=== PATIENT | male | born 1965 | race Caucasian/White ===

== ENCOUNTER 2016-05-17 05:29 | Emergency (ER) | payer BC ==
--- NOTE | 2016-05-17 05:44 | ED ---
Chest Pain HPI - General Stated Complaint: Chest Pain Time Seen by Provider: 05/17/16 05:41 Source: patient, family (Mckenzie) Limitations: no limitations - History of Present Illness Initial Comments: This patient is 51-year-old man who presents with complaint that he woke up feeling like he could not breathe this morning. Patient states she had gone to bed feeling like his usual self and then he awoke abruptly this morning feeling like he could not breathe and he was gasping to catch his breath. Patient states that it felt like his heart was racing. He had some chest tightness. Patient states that the symptoms did rapidly resolve as he was coming here to be evaluated. Patient denies chest pain or dyspnea currently. He did have a similar episode to this between 1-2 years ago and was told that he had probable episode of sleep apnea. He has not had a sleep study or recent stress test. Patient denies smoking history or significant family history. -: hour(s) Onset: awoke with symptoms Pain Location: substernal Pain Radiation: none Consistency: now resolved Improves With: nothing Worsens With: nothing - Related Data Home Medications Medication Instructions Recorded Confirmed Aspirin 81 mg PO DAILY 11/17/13 12/10/13 Cholecalciferol (Vitamin D3) 10,000 unit PO DAILY 11/17/13 12/10/13 [Vitamin D3] Lisinopril 10 mg PO DAILY 11/17/13 12/10/13 Multivitamin [Men's Multi-Vitamin] 1 each PO DAILY 11/17/13 12/10/13 [place]-3 Fatty Acids/Fish Oil [Fish 2 each PO DAILY 11/17/13 12/10/13 Oil 1,000 mg Softgel] Previous Rx's Medication Instructions Recorded Albuterol Inhaler [Ventolin Hfa 2 puff INHALATION Q6HR PRN #1 12/10/13 Inhaler] inhaler predniSONE 20 mg PO TID #15 tab 12/10/13 Allergies Allergy/AdvReac Type Severity Reaction Status Date / Time No Known Allergies Allergy Verified 05/17/16 05:44 Review of Systems ROS Statement: Those systems with pertinent positive or pertinent negative responses have been documented in the HPI. ROS Other: All systems not noted in ROS Statement are negative. Constitutional: Denies: fever, chills Respiratory: Reports: as per HPI, dyspnea. Denies: cough, wheezes Cardiovascular: Reports: as per HPI, chest pain. Denies: palpitations, dyspnea on exertion, orthopnea, edema, syncope Gastrointestinal: Denies: abdominal pain, nausea, vomiting Genitourinary: Denies: dysuria Musculoskeletal: Denies: back pain Skin: Denies: rash Neurological: Denies: headache, weakness, numbness EKG Findings - EKG Results: EKG: interpreted by ELIZA MILLER, sinus rhythm, normal axis, normal QRS, normal ST/ T, no acute changes Past Medical History Past Medical History: Hypertension History of Any Multi-Drug Resistant Organisms: None Reported Past Surgical History: No Surgical Hx Reported Additional Past Surgical History / Comment(s): pt stated had surgery on thumb for tendons. Past Anesthesia/Blood Transfusion Reactions: No Reported Reaction Past Psychological History: No Psychological Hx Reported Smoking Status: Current every day smoker Past Alcohol Use History: None Reported Past Drug Use History: None Reported - Past Family History Mother Family Medical History: Hypertension Additional Family Medical History / Comment(s): pts mom's dad of heart attack at 75. Father Family Medical History: Cancer, Hypertension Additional Family Medical History / Comment(s): Prostate Cancer General Exam General appearance: alert, in no apparent distress Head exam: Present: atraumatic, normocephalic Eye exam: Present: normal appearance. Absent: scleral icterus, conjunctival injection ENT exam: Present: normal oropharynx Neck exam: Present: normal inspection, full ROM Respiratory exam: Present: normal lung sounds bilaterally. Absent: respiratory distress, wheezes, rales, rhonchi, stridor, chest wall tenderness Cardiovascular Exam: Present: regular rate, normal rhythm, normal heart sounds. Absent: systolic murmur, diastolic murmur, rubs, gallop GI/Abdominal exam: Present: soft. Absent: distended, tenderness, guarding, rebound, mass Extremities exam: Present: normal inspection, normal capillary refill. Absent: pedal edema, calf tenderness Neurological exam: Present: alert Skin exam: Present: warm, dry, intact, normal color. Absent: rash Course Vital Signs 05/17/16 05:30 Temperature 97.6 F Pulse Rate 74 Respiratory 22 Rate Blood Pressure 151/82 O2 Sat by Pulse 96 Oximetry Disposition Clinical Impression: Sleep apnea Disposition: HOME SELF-CARE Condition: Good Instructions: Chest Pain (ED) Additional Instructions: As we discussed, follow-up with the production specialist to arrange stress test. If there is any difficulty in setting this up within the next week return to the emergency department and ischemia arranged as an inpatient. Also as we discussed, speak with your physician about arranging a sleep study to confirm the suspected sleep apnea. Referrals: Ariadne Nunn III, MD [Primary Care Provider] - 1-2 days Theo White MD [STAFF PHYSICIAN] - 1-2 days
--- NOTE | 2016-05-17 06:27 | XR ---
EXAM: XR Chest, 1 View. CLINICAL HISTORY: Reason: dyspnea TECHNIQUE: Frontal view of the chest. COMPARISON: 12/10/13 portable chest FINDINGS: Lungs: No focal infiltrate has developed. Pleural space: Unremarkable. No pneumothorax. Heart: The heart size is stable with borderline to mild cardiomegaly again present. Mediastinum: The mediastinal contours are within normal limits for portable AP technique and somewhat apical lordotic projection. Also, the patient is slightly rotated towards the right. Bones/joints: Stable. Upper abdomen: Mild elevation or eventration of the right diaphragm is now better seen although unchanged allowing for differences in positioning. IMPRESSION: No acute process seen within the chest.
[2016-05-17 06:34] LABS: Basophils # (A) 0.1 k/uL (0-0.2); Basophils % (A) 1 %; CH 32.2; CHCM 34.4; Eosinophils # (A) 0.1 k/uL (0-0.7); Eosinophils % (A) 2 %; HCT 40.2 % (39.0-53.0); HDW 2.74; HGB 14.4 gm/dL (13.0-17.5); Luc # (Auto) 0.18; Luc % (Auto) 3; Lymphocytes # (A) 2.2 k/uL (1.0-4.8); Lymphocytes % (A) 30 %; MCH 33.6 pg (25.0-35.0); MCHC 35.8 g/dL (31.0-37.0); Mean Platelet Volume 7.9; Monocytes # (A) 0.5 k/uL (0-1.0); Monocytes % (A) 7 %; Neutrophils # (A) 4.1 k/uL (1.3-7.7); Neutrophils % (A) 57 %; RBC 4.28 m/uL (4.30-5.90); RDW 13.1 % (11.5-15.5); WBC 7.2 k/uL (3.8-10.6); WBC (Perox) 7.41
[2016-05-17 07:01] LABS: ALT 55 U/L (21-72); AST 32 U/L (17-59); Alkaline Phosphatase 70 U/L (38-126); Anion Gap 11 mmol/L; Blood Urea Nitrogen 17 mg/dL (9-20); Calcium 9.1 mg/dL (8.4-10.2); Carbon Dioxide 20 mmol/L (22-30); Chloride 110 mmol/L (98-107); Glucose 158 mg/dL (74-99); Non-African American GFR(MDRD) >60 (>60 ml/min/1.73 sqM); Potassium 4.2 mmol/L (3.5-5.1); Sodium 141 mmol/L (137-145); Total Bilirubin 0.6 mg/dL (0.2-1.3); Total Protein 6.7 g/dL (6.3-8.2)
[2016-05-17 07:19] LABS: Partial Thromboplastin Time 26.7 sec (22.0-30.0); Prothrombin Time 9.9 sec (9.0-12.0)
[2016-05-17 08:46] VITALS: BP 136/63; PULSE 62; RESP 18; TEMP 97.5
== END 2016-05-17 08:46 | disposition home or self-care (01) ==
LOC: EC 05:29 → SUPCPDRO 05:29 → EC 08:46
DX: G47.30 Sleep apnea, unspecified (principal); Z79.82 Long term (current) use of aspirin; F17.200 Nicotine dependence, unspecified, uncomplicated
CPT/HCPCS: 36415; 71010; 80053; 83880; 84484; 85025; 85379; 85610; 85730; 93005; 99285

== ENCOUNTER 2016-05-24 22:27 | Observation (INO) | payer BC ==
[2016-05-24] MEDS ORDERED: NITROGLYCERIN OINT 1 INCH/GM PACKET TOPICAL STA (22:54)
--- NOTE | 2016-05-24 22:58 | ED ---
Chest Pain HPI - General Chief Complaint: Chest Pain Stated Complaint: chest pain; sob Time Seen by Provider: 05/24/16 22:36 Source: patient, RN notes reviewed, old records reviewed Mode of arrival: wheelchair Limitations: no limitations - History of Present Illness Initial Comments: This is a 51-year-old male with a history of hypertension and high cholesterol who states he laid down before going to work tonight and felt very short of breath he had nausea sweats no overt chest pain. He still feeling his symptoms he has worked up for the past with stress test and other testing but not a cardiac cath at. He is a smoker we occasion drinks alcohol does not do street drugs. He denies any family history of heart disease. Patient states he is convinced that he has a blockage in his heart. MD Complaint: other - Related Data Home Medications Medication Instructions Recorded Confirmed Aspirin 81 mg PO DAILY 11/17/13 12/10/13 Cholecalciferol (Vitamin D3) 10,000 unit PO DAILY 11/17/13 12/10/13 [Vitamin D3] Lisinopril 10 mg PO DAILY 11/17/13 12/10/13 Multivitamin [Men's Multi-Vitamin] 1 each PO DAILY 11/17/13 12/10/13 [place]-3 Fatty Acids/Fish Oil [Fish 2 each PO DAILY 11/17/13 12/10/13 Oil 1,000 mg Softgel] Previous Rx's Medication Instructions Recorded Albuterol Inhaler [Ventolin Hfa 2 puff INHALATION Q6HR PRN #1 12/10/13 Inhaler] inhaler predniSONE 20 mg PO TID #15 tab 12/10/13 Allergies Allergy/AdvReac Type Severity Reaction Status Date / Time No Known Allergies Allergy Verified 05/17/16 05:44 Review of Systems ROS Statement: Those systems with pertinent positive or pertinent negative responses have been documented in the HPI. ROS Other: All systems not noted in ROS Statement are negative. EKG Findings - EKG Results: EKG: interpreted by ANGELA, sinus rhythm (Sinus rhythm with a rate of 66. Interval 188 QRS duration 92 daily since QTC of 396/450 nonspecific T-wave configuration this is compared with an EKG dated 05/17/16) Past Medical History Past Medical History: Hypertension History of Any Multi-Drug Resistant Organisms: None Reported Past Surgical History: No Surgical Hx Reported Additional Past Surgical History / Comment(s): pt stated had surgery on thumb for tendons. Past Anesthesia/Blood Transfusion Reactions: No Reported Reaction Past Psychological History: No Psychological Hx Reported Smoking Status: Current every day smoker Past Alcohol Use History: None Reported Past Drug Use History: None Reported - Past Family History Mother Family Medical History: Hypertension Additional Family Medical History / Comment(s): pts mom's dad of heart attack at 75. Father Family Medical History: Cancer, Hypertension Additional Family Medical History / Comment(s): Prostate Cancer General Exam - General Exam Comments Initial Comments: This is a well-developed well-nourished awake alert oriented times 3 male Limitations: no limitations General appearance: alert, in no apparent distress Head exam: Present: atraumatic, normocephalic, normal inspection Eye exam: Present: normal appearance, PERRL, EOMI. Absent: scleral icterus, conjunctival injection, periorbital swelling ENT exam: Present: normal exam, mucous membranes moist Neck exam: Present: normal inspection. Absent: tenderness, meningismus, lymphadenopathy Respiratory exam: Present: normal lung sounds bilaterally. Absent: respiratory distress, wheezes, rales, rhonchi, stridor Cardiovascular Exam: Present: regular rate, normal rhythm, normal heart sounds. Absent: systolic murmur, diastolic murmur, rubs, gallop, clicks GI/Abdominal exam: Present: soft, normal bowel sounds. Absent: distended, tenderness, guarding, rebound, rigid Extremities exam: Present: normal inspection, full ROM, normal capillary refill. Absent: tenderness, pedal edema, joint swelling, calf tenderness Back exam: Present: normal inspection Neurological exam: Present: alert, oriented X3, CN II-XII intact Psychiatric exam: Present: normal affect, normal mood Skin exam: Present: warm, dry, intact, normal color. Absent: rash Course Vital Signs 05/24/16 05/24/16 05/25/16 22:28 22:50 00:13 Temperature 97.1 F L 97.2 F L Pulse Rate 69 61 56 L Pulse Rate [ 61 Booky ] Respiratory 17 18 18 Rate Blood Pressure 148/83 164/96 120/56 O2 Sat by Pulse 97 98 97 Oximetry Chest Pain MDM - MDM I did review the x-ray and report no acute findings. I did discuss findings with the patient is asymptomatic this time the presentation is consistent with atypical presentation of coronary artery disease. Patient be admitted with cardiology consultation. Disposition Clinical Impression: Unstable angina pectoris Disposition: ADMITTED IP TO THIS HOSP Condition: Stable
[2016-05-24 23:07] LABS: Basophils % (A) 1 %; CH 32.2; CHCM 34.7; Eosinophils # (A) 0.1 k/uL (0-0.7); Eosinophils % (A) 1 %; HCT 42.5 % (39.0-53.0); HDW 2.73; HGB 14.6 gm/dL (13.0-17.5); Luc # (Auto) 0.21; Luc % (Auto) 2; Lymphocytes # (A) 2.5 k/uL (1.0-4.8); Lymphocytes % (A) 28 %; MCH 31.9 pg (25.0-35.0); MCHC 34.2 g/dL (31.0-37.0); MCV 93.3 fL (80.0-100.0); Mean Platelet Volume 7.6; Monocytes # (A) 0.6 k/uL (0-1.0); Monocytes % (A) 7 %; Neutrophils # (A) 5.3 k/uL (1.3-7.7); Neutrophils % (A) 60 %; RBC 4.56 m/uL (4.30-5.90); RDW 13.4 % (11.5-15.5); WBC 8.8 k/uL (3.8-10.6); WBC (Perox) 8.98
[2016-05-24 23:18] LABS: ALT 53 U/L (21-72); AST 39 U/L (17-59); Alkaline Phosphatase 75 U/L (38-126); Anion Gap 10 mmol/L; Blood Urea Nitrogen 20 mg/dL (9-20); Calcium 9.6 mg/dL (8.4-10.2); Carbon Dioxide 23 mmol/L (22-30); Chloride 108 mmol/L (98-107); Glucose 116 mg/dL (74-99); Non-African American GFR(MDRD) 53 (>60 ml/min/1.73 sqM); Sodium 141 mmol/L (137-145); Total Bilirubin 0.6 mg/dL (0.2-1.3)
[2016-05-24 23:22] LABS: Partial Thromboplastin Time 27.3 sec (22.0-30.0); Prothrombin Time 9.9 sec (9.0-12.0)
[2016-05-24 23:29] LABS: Creatine Kinase 347 U/L (55-170)
[2016-05-24 23:42] LABS: Creatine Kinase MB 1.3 ng/mL (0.0-2.4); Troponin I <0.012 ng/mL (0.000-0.034)
--- NOTE | 2016-05-25 00:27 | XR ---
EXAM: XR Chest, 2 Views. CLINICAL HISTORY: Reason: Chest Pain TECHNIQUE: Frontal and lateral views of the chest. COMPARISON: Chest radiograph 05/17/2016 FINDINGS: Lungs: Lungs are clear. Pleural space: Unremarkable. No pneumothorax. Heart: Heart size and mediastinal structures are within normal limits. Mediastinum: Unremarkable. Bones/joints: Unremarkable. IMPRESSION: No evidence of active chest disease.
[2016-05-25] MEDS ORDERED: NITROGLYCERIN SL TABS 0.4 MG TAB SUBLINGUAL PRN (00:45)
[2016-05-25] MEDS ORDERED: HEPARIN SODIUM,PORCINE 5,000 UNIT/ML 1 ML VIAL IV ONE (00:45)
[2016-05-25] MEDS ORDERED: HEPARIN SODIUM,PORCINE/D5W PMX 25,000 UNIT in DEXTROSE/WATER 1 500ML.BAG IV SCH (00:45)
[2016-05-25] MEDS ORDERED: SODIUM CHLORIDE 0.9% 1,000 ML IV SCH (00:45)
[2016-05-25] MEDS ORDERED: ALBUTEROL NEBULIZED 2.5 MG/3 ML INHALATION PRN (00:47)
[2016-05-25 01:31] VITALS: BMI 30.9
[2016-05-25] MEDS ORDERED: NITROGLYCERIN OINT 1 INCH/GM PACKET TOPICAL SCH (06:00)
[2016-05-25 06:04] LABS: Creatine Kinase 266 U/L (55-170)
[2016-05-25 06:16] LABS: Creatine Kinase MB 1.1 ng/mL (0.0-2.4); Troponin I <0.012 ng/mL (0.000-0.034)
[2016-05-25 07:57] VITALS: TEMP 97.7
[2016-05-25] MEDS ORDERED: LISINOPRIL 10 MG TAB PO SCH (09:00)
[2016-05-25 11:57] LABS: Creatine Kinase 242 U/L (55-170)
[2016-05-25 12:10] LABS: Creatine Kinase MB 1.1 ng/mL (0.0-2.4); Troponin I <0.012 ng/mL (0.000-0.034)
--- NOTE | 2016-05-25 13:13 | ECHOF ---
Referral Reason: MEASUREMENTS -------- HEIGHT: 180.3 cm WEIGHT: 106.1 kg BP: IVSd: 1.0 cm (0.6 - 1.1) LVIDd: 5.4 cm (3.9 - 5.3) LVPWd: 1.1 cm (0.6 - 1.1) IVSs: 1.6 cm LVIDs: 3.2 cm LVPWs: 2.1 cm Ao Diam: 2.8 cm (2.0 - 3.7) AV Cusp: 2.1 cm (1.5 - 2.6) LA Diam: 3.3 cm (2.7 - 3.8) MV EXCURSION: 15.618 mm (> 18.000) MV EF SLOPE: 96 mm/s (70 - 150) EPSS: 0.7 cm MV E Jean-Claude: 0.99 m/s MV DecT: 223 ms MV A Jean-Claude: 0.93 m/s MV E/A Ratio: 1.07 AV maxP.55 mmHg AV meanP.16 mmHg RAP: 5.00 mmHg RVSP: 21.66 mmHg FINDINGS -------- Sinus rhythm. This was a technically good study. Left ventricular wall thickness is normal. Overall left ventricular systolic function is normal with, an EF between 55 - 60 %. The right ventricle is normal in size and function. The left atrium is normal in size. The right atrium is normal in size. Aortic valve is trileaflet and is mildly thickened. Peak/mean gradient across the Aortic Valve is 17.55mmHg / 7.16mmHg. Can't exclude possible Bicuspid Aov. The mitral valve leaflets are mildly thickened. Mild mitral regurgitation is present. Mild tricuspid regurgitation present. The right ventricular systolic pressure, as measured by Doppler, is 21.66mmHg. Pulmonic valve appears structurally normal. The aortic root size is normal. The pericardium is normal. CONCLUSIONS -------- 1. Sinus rhythm. 2. Can't exclude possible Bicuspid Aov. 3. The mitral valve leaflets are mildly thickened. 4. Mild mitral regurgitation is present. 5. Mild tricuspid regurgitation present. 6. The right ventricular systolic pressure, as measured by Doppler, is 21.66mmHg. 7. Pulmonic valve appears structurally normal. 8. The aortic root size is normal. 9. The pericardium is normal. 10. This was a technically good study. 11. Left ventricular wall thickness is normal. 12. Overall left ventricular systolic function is normal with, an EF between 55 - 60 %. 13. The right ventricle is normal in size and function. 14. The left atrium is normal in size. 15. The right atrium is normal in size. 16. Aortic valve is trileaflet and is mildly thickened. 17. Peak/mean gradient across the Aortic Valve is 17.55mmHg / 7.16mmHg. CLOSING MANAGER: Arianna Hernandez RDCS
--- NOTE | 2016-05-25 14:18 | ECHOS ---
DATE OF SERVICE: 05/25/2016 AGE: 51Y SEX: M HT: 71" WT: 235 lbs. Protocol Kunal: X Others: Stress Echo Stage: 3 Dur. of Exercise: 11:43 *Heart Rate Blood Pressure *Rest: 71 Rest: * *Max. Achieved: 142 Maximum BP: 190/76 85% PMHR: 142 100% PMHR: 167 *METS: 11.7 INDICATIONS: Chest pain. MEDICATIONS: Lisinopril, Norvasc. Patient was exercised for a total period of 12 minutes. A peak heart rate of 142 was achieved. Maximum blood pressure of 190/76 mmHg was noted. Resting EKG shows normal sinus rhythm with normal OR interval and QRS duration and normal ST-T waves. No ST segment depression suggestive of ischemia is noted. Occasional PVCs were noted. The baseline echocardiographic images reveal normal left ventricular chamber size with normal left ventricular systolic function. In the immediate postexercise period, normal increase in the wall thickness and contractility is noted. FINAL IMPRESSION: 1. This stress echocardiographic study is negative for stress-induced ischemia. 2. Patient's exercise tolerance is normal. 3. Occasional Premature ventricular contractions are noted.
--- NOTE | 2016-05-25 14:50 | CONS ---
DATE OF CONSULTATION: Mr. Hahn is 51-year-old male history of hypertension, history of chronic tobacco use, who smokes a pack and a half a day who presented with acute dyspnea that occurred at night. He had mild chest discomfort, but not as severe. He came into the emergency room and subsequently admitted. The patient, according to him, is reasonably active physically, has no exertional chest pain. He denies any peripheral edema. No palpitation. He felt dizzy yesterday, but not regularly. No palpitation. 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 He has a history of snoring and possible apnea. He has not been evaluated for obstructive sleep apnea in the past. He was in the hospital in October 2013. At that time, his stress test revealed no evidence of inducible ischemia and subsequently because of persistent symptoms, he was evaluated by Dr. Marion for possible cardiac catheterization but the patient declined to have it done, subsequently. His coronary risk factors are positive for hypertension, and chronic tobacco use. He is a nondiabetic. His lipid profile is not available to me. His medications at home include: 1. Amlodipine 5 mg daily. 2. Aspirin. 3. Lisinopril 10 mg daily. 4. Coenzyme Q10. 5. [place]-3 fish oil. REVIEW OF SYSTEMS: RESPIRATORY SYSTEM: He has no recent wheezing. No cough, although he has chronic tobacco use, and dyspnea. GI: No recent GI bleeding. No peptic ulcer disease. system: No dysuria or hematuria. Nervous system: No stroke or seizure. 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 PHYSICAL EXAMINATION: A 51-year-old male, alert, oriented, in no apparent distress. Blood pressure 117/60 with a heart in the 60s. HEAD: Normocephalic. EYES: Sclerae anicteric. NECK: Good upstroke. No bruit. No jugular venous distention. LUNGS: Clear to auscultation. HEART: Regular rate and rhythm. S1, S2, no S3, no S4, no rub. ABDOMEN: Soft, nontender, positive bowel sounds. No organomegaly. EXTREMITIES: No edema. Intact distal pulses. Lab data revealed BUN and creatinine of 20 and 1.4, troponin less than 0.012. Hemoglobin of 14.6. EKG reveals sinus mechanism, normal axis and intervals with minor nonspecific ST-T wave changes. IMPRESSION: 1. Chest discomfort and dyspnea at rest of unclear etiology, has atypical feature for ischemic heart disease in a patient with history of hypertension and chronic tobacco use. 2. Hypertension. 3. Chronic tobacco use. RECOMMENDATIONS: I will recommend to stop the heparin, proceed with a stress echocardiogram and transthoracic echo. If there is evidence of inducible ischemia then I would recommend to proceed with coronary angiography to assess his status and guide his treatment. The rationale behind the procedure the plan as well as the importance of smoking cessation was discussed with the patient, who was in full understanding and agreement. Thank you for this consult. We will follow with you.
[2016-05-25 16:11] VITALS: BP 112/69; PULSE 56; RESP 16
--- NOTE | 2016-05-26 06:44 | HP ---
DATE OF ADMISSION: HISTORY PHYSICAL AND DISCHARGE SUMMARY Reason for admission is difficulty in breathing and chest pressure. HISTORY OF PRESENT ILLNESS: This is a 51-year-old gentleman with no past medical history of cardiac disease, comes into the hospital with an episode of difficulty in breathing while the patient was asleep and associated with chest pressure. The episode was self-limiting, was associated with diuresis, diaphoresis. No alleviating or exacerbating factors are reported. Pressure was midsternal, nonradiating in nature. Patient apparently has had similar episode in 2013. At that time, the stress test was negative, however, due to persistent symptoms a cardiac catheterization was offered, patient refused it at that time. According to the patient, patient's apparently tells him he snores quite a bit at night. 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 At that time my evaluation, patient denies having chest pain, difficulty in breathing, nausea, vomiting, diarrhea, urinary urgency or frequency. The 14-point review of systems was done not pertinent other than what was described as well. Past medical history includes history of hypertension, ongoing tobacco use. SOCIAL HISTORY: Currently smokes a pack of cigarettes daily, drinks alcohol on the weekend. Denies any illicit drug use. Home medications include: 1. Lisinopril. 2. Co- Q10. 3. Fish oil. 4. Multivitamin. 5. Vitamin D3. 6. Aspirin. 7. Lisinopril. Appropriate doses were reviewed and medications were reconciled on admission and discharge. SURGICAL HISTORY: None reported. Physical exam includes temperature 97.7, heart rate is 56, blood pressure 112/69, saturating 93% on room air. GENERALLY: Patient appears to be alert, oriented x3. HEENT: The pupils are equal and reactive to light and accommodation. HEART: S1, S2 present. No murmur appreciated. LUNGS: Good air entry. No wheezing or rhonchi noted. ABDOMINAL EXAM: Soft, nontender, no organomegaly appreciated. GENITOURINARY: No Vidal in place. EXTREMITIES: Pulses can be palpated distally. Denies any tenderness on gross palpation. SKIN: On a gross skin exam does not appear to have any purpura or any skin rashes that were noted. NEUROLOGICALLY: Grossly cranial nerves 2-12 intact. No motor or sensory deficits noted. LABS: Hemoglobin is 14.6, hematocrit 42.5, white count 8.8, platelets of 260. Sodium 141, potassium 4, chloride 108, bicarb 23, BUN 20 and creatinine of 1.4. ASSESSMENT AND PLAN: 1. Atypical chest pain. ACS was ruled out. 2. Acute kidney injury. 3. Ongoing tobacco use. 4. Clinical obstructive sleep apnea. PLAN: Patient appears to have an atypical episode, however, this has happened in the past. The patient denies having any symptoms of being ill in the recent times. The patient was given IV fluids. Patient is recommended to have a repeat renal function evaluation in about one week. The patient's baseline creatinine about 0.9, currently at 1.4. Lisinopril will be continued at this time. Patient's episode has occurred in the past and appears to only occur during sleep. Patient does state to have some anxiety when he wakes up with gasping for air and thereafter this episode happens. All the above recommendations were discussed. Patient underwent a stress test, which only revealed trace PVCs, otherwise a normal stress echocardiogram. Echocardiogram was also done EF of 55% to 60%. Right ventricular systolic pressure was within normal limits. No other abnormalities were noted. Patient is discharged home in a stable condition.
[2016-05-26] MEDS ORDERED: ASPIRIN 325 MG TAB PO SCH (09:00)
== END 2016-05-25 18:00 | disposition home or self-care (01) ==
LOC: EC 22:27 → 3OBS 05-25 00:47
PROVIDERS: ADMIT Internal Medicine; ATTEND Internal Medicine
DX: R07.89 Other chest pain (principal); R61 Generalized hyperhidrosis; R11.0 Nausea; R06.02 Shortness of breath; R06.00 Dyspnea, unspecified; I10 Essential (primary) hypertension; N17.9 Acute kidney failure, unspecified; G47.33 Obstructive sleep apnea (adult) (pediatric); F17.210 Nicotine dependence, cigarettes, uncomplicated; E78.00 Pure hypercholesterolemia, unspecified; Z79.82 Long term (current) use of aspirin; Z79.899 Other long term (current) drug therapy; Z82.49 Family history of ischemic heart disease and other diseases of the circulatory system; Z80.42 Family history of malignant neoplasm of prostate
CPT/HCPCS: 96374; 99285; 36415; 93005; 93017; 93306; 93350; 85379; 83880; 80053; 82550 ×2; 82553 ×2; 83735; 84484 ×2; 85025; 85610; 85730; 71020; G0378; J1644 ×2

== ENCOUNTER → 2016-10-09 | Outpatient (CLI) | payer BC ==
--- NOTE | 2016-10-09 09:15 | MR ---
EXAMINATION TYPE: MR cervical spine wo con DATE OF EXAM: 10/09/2016 7:38 AM COMPARISON: NONE HISTORY: RADICULOPATHY Multiplanar MultiSpin echo imaging of the cervical spine was performed. Comparison: none C2-C3: No evidence for degenerative disc disease. No disc bulge/herniation or protrusion. No Canal stenosis. Foramina are patent bilaterally. C3-C4: No evidence for degenerative disc disease. No disc bulge/herniation or protrusion. No Canal stenosis. Foramina are patent bilaterally. C4-C5: Mild decreased signal and loss of height compatible with a mild disc desiccation. Small left p aracentral disc bulge mildly effaces the ventral thecal sac. No evidence for central stenosis. There is left lateral recess stenosis and mild bilateral foraminal encroachment. Mild early compressive mye lopathy suggested. C5-C6: Mild to moderate disc desiccation identified. Large right sided disc herniation encapsulated b y bony spur compatible with the hard disc effaces the thecal sac and results in right lateral recess stenosis and right foraminal encroachment. There is also mild to moderate central stenosis at this le negrita. Mild left foraminal encroachment identified. C6-C7: Mild to moderate disc desiccation. Broad-based posterocentral disc herniation with left greate r than right resulting in bilateral lateral recess stenosis and mild central stenosis. There is bilat eral foraminal encroachment. No evidence for compressive myelopathy. C7-T1: No evidence for degenerative disc disease. No disc bulge/herniation or protrusion. No Canal stenosis. Foramina are patent bilaterally. Cervical segments are intact. There is normal alignment. Craniovertebral junction relationships are within normal limits. IMPRESSION: 1. Multilevel degenerative disc disease. 2. Central stenosis at C5-6 and C6-7. Mild early compressive myelopathy suggested. See above.
== END | disposition home or self-care (01) ==
LOC: RADMRIMAIN 07:07
PROVIDERS: ATTEND Physician Assistant
DX: M99.71 Connective tissue and disc stenosis of intervertebral foramina of cervical region (principal); M50.322 Other cervical disc degeneration at C5-C6 level
CPT/HCPCS: 72141

== ENCOUNTER 2017-11-28 11:09 | Emergency (ER) | payer BC ==
[2017-11-28 11:13] VITALS: RESP 18
[2017-11-28] MEDS ORDERED: ASPIRIN 81 MG PO STA (11:22)
[2017-11-28] MEDS ORDERED: NITROGLYCERIN OINT 1 INCH/GM PACKET TOPICAL STA (11:22)
--- NOTE | 2017-11-28 11:25 | ED ---
General Adult HPI - General Chief complaint: Chest Pain Stated complaint: Chest Pain Time Seen by Provider: 11/28/17 11:18 Source: patient, RN notes reviewed Mode of arrival: ambulatory Limitations: no limitations - History of Present Illness Initial comments: Patient is a pleasant 42-year-old male presenting to the emergency Department with complaints of chest discomfort. Onset of symptoms was a couple of weeks ago. Discomfort feels like tightness in the chest. Symptoms were much worse this morning. Patient had associated dyspnea and sweating. There may have been some nausea as well. Patient does have some tingling of his left arm and possibly his left leg. No weakness. Chest discomfort has improved and is mild at this point. No history of previous symptoms prior to 2 weeks ago. No history of heart disease. - Related Data Home Medications Medication Instructions Recorded Confirmed Aspirin 81 mg PO DAILY 11/17/13 05/25/16 Cholecalciferol (Vitamin D3) 10,000 unit PO DAILY 11/17/13 05/25/16 [Vitamin D3] Multivitamin [Men's Multi-Vitamin] 1 tab PO DAILY 11/17/13 05/25/16 [place]-3 Fatty Acids/Fish Oil [Fish 2 cap PO DAILY 11/17/13 05/25/16 Oil 1,000 mg Softgel] Lisinopril 40 mg PO DAILY 05/25/16 05/25/16 Ubidecarenone [Co Q-10] 100 mg PO DAILY 05/25/16 05/25/16 Previous Rx's Medication Instructions Recorded Lisinopril [Zestril] 10 mg PO DAILY #30 tab 05/25/16 Allergies Allergy/AdvReac Type Severity Reaction Status Date / Time No Known Allergies Allergy Verified 11/28/17 11:12 Review of Systems ROS Statement: Those systems with pertinent positive or pertinent negative responses have been documented in the HPI. ROS Other: All systems not noted in ROS Statement are negative. Constitutional: Denies: fever Eyes: Denies: eye pain ENT: Denies: ear pain Respiratory: Denies: cough Cardiovascular: Reports: chest pain Endocrine: Denies: fatigue Gastrointestinal: Denies: abdominal pain Genitourinary: Denies: dysuria Musculoskeletal: Denies: back pain Skin: Denies: rash Neurological: Denies: headache, weakness, confusion Past Medical History Past Medical History: GERD/Reflux, Hypertension History of Any Multi-Drug Resistant Organisms: None Reported Past Surgical History: No Surgical Hx Reported Additional Past Surgical History / Comment(s): pt stated had surgery on thumb for tendons. Past Anesthesia/Blood Transfusion Reactions: No Reported Reaction Past Psychological History: No Psychological Hx Reported Smoking Status: Current every day smoker Past Alcohol Use History: Occasional Past Drug Use History: None Reported - Past Family History Mother Family Medical History: Hypertension Additional Family Medical History / Comment(s): pts mom's dad of heart attack at 75. Father Family Medical History: Cancer, Hypertension Additional Family Medical History / Comment(s): Prostate Cancer General Exam Limitations: no limitations General appearance: alert, in no apparent distress Head exam: Present: atraumatic Eye exam: Present: normal appearance, PERRL ENT exam: Present: normal oropharynx Neck exam: Present: normal inspection Respiratory exam: Present: normal lung sounds bilaterally. Absent: chest wall tenderness Cardiovascular Exam: Present: regular rate, normal rhythm Expanded Peripheral pulses: 2+: Radial (R), Radial (L), Posterior Tibialis (R), Posterior Tibialis (L) GI/Abdominal exam: Present: soft. Absent: distended, tenderness, pulsatile mass Extremities exam: Present: normal inspection. Absent: pedal edema, calf tenderness Neurological exam: Present: alert Expanded Sensory exam: Upper Extremity Light Touch: Normal, Lower Extremity Light Touch: Normal Motor strength exam: RUE: 5, LUE: 5, RLE: 5, LLE: 5 Eye Response: (4) open spontaneously Motor Response: (6) obeys commands Verbal Response: (5) oriented Psychiatric exam: Present: normal affect, normal mood Skin exam: Present: normal color Course Vital Signs 11/28/17 11/28/17 11/28/17 11:10 11:15 11:53 Temperature 98.1 F Pulse Rate 76 57 L Pulse Rate [ 60 Security Checker ] Respiratory 18 18 Rate Blood Pressure 160/78 143/63 O2 Sat by Pulse 99 98 Oximetry EKG Findings - EKG Comments: EKG Findings:: Normal sinus rhythm 69. NV 192. QRS 90. QT 402. QTC 4:30. Normal axis. Normal QRS. No acute ST change. Medical Decision Making - Medical Decision Making Patient reevaluated and resting comfortably in bed. Patient is updated on results and is advised of plan for admission. Patient is aware this is a strong recommendation. Patient is made aware of limitations of tests and emergency department including limitations of EKG, blood work and x-ray. Patient is made aware that heart attack has not been ruled out at this time. Patient is also made aware that he could be at increased risk for heart attack in the near future. Patient is again strongly advised to stay in the hospital. Patient is made aware if he leaves it will be AGAINST MEDICAL ADVICE. Patient does demonstrate medical decision making. Patient is agreeable to follow-up. Patient states he takes an aspirin daily. - Lab Data Result diagrams: 11/28/17 11:38 11/28/17 11:38 Lab Results 11/28/17 11/28/17 11/28/17 Range/Units 11:38 11:38 11:38 WBC 6.9 (3.8-10.6) k/uL RBC 4.80 (4.30-5.90) m/uL Hgb 15.0 (13.0-17.5) gm/dL Hct 45.3 (39.0-53.0) % MCV 94.3 (80.0-100.0) fL MCH 31.2 (25.0-35.0) pg MCHC 33.1 (31.0-37.0) g/dL RDW 13.3 (11.5-15.5) % Plt Count 250 (150-450) k/uL Neutrophils % 58 % Lymphocytes % 31 % Monocytes % 6 % Eosinophils % 2 % Basophils % 1 % Neutrophils # 4.0 (1.3-7.7) k/uL Lymphocytes # 2.1 (1.0-4.8) k/uL Monocytes # 0.4 (0-1.0) k/uL Eosinophils # 0.2 (0-0.7) k/uL Basophils # 0.0 (0-0.2) k/uL PT (9.0-12.0) sec INR (<1.2) APTT (22.0-30.0) sec D-Dimer (<0.60) mg/L FEU Sodium 142 (137-145) mmol/L Potassium 4.5 (3.5-5.1) mmol/L Chloride 110 H (98-107) mmol/L Carbon Dioxide 24 (22-30) mmol/L Anion Gap 8 mmol/L BUN 15 (9-20) mg/dL Creatinine 0.99 (0.66-1.25) mg/dL Est GFR (CKD-EPI)AfAm >90 (>60 ml/min/1.73 sqM) Est GFR (CKD-EPI)NonAf 86 (>60 ml/min/1.73 sqM) Glucose 189 H (74-99) mg/dL Calcium 9.5 (8.4-10.2) mg/dL Magnesium 2.1 (1.6-2.3) mg/dL Total Bilirubin 0.4 (0.2-1.3) mg/dL AST 29 (17-59) U/L ALT 46 (21-72) U/L Alkaline Phosphatase 105 (38-126) U/L Total Creatine Kinase 102 (55-170) U/L CK-MB (CK-2) 0.9 (0.0-2.4) ng/mL CK-MB (CK-2) Rel Index 0.9 Troponin I <0.012 (0.000-0.034) ng/mL Total Protein 6.9 (6.3-8.2) g/dL Albumin 4.0 (3.5-5.0) g/dL 11/28/17 Range/Units 11:38 WBC (3.8-10.6) k/uL RBC (4.30-5.90) m/uL Hgb (13.0-17.5) gm/dL Hct (39.0-53.0) % MCV (80.0-100.0) fL MCH (25.0-35.0) pg MCHC (31.0-37.0) g/dL RDW (11.5-15.5) % Plt Count (150-450) k/uL Neutrophils % % Lymphocytes % % Monocytes % % Eosinophils % % Basophils % % Neutrophils # (1.3-7.7) k/uL Lymphocytes # (1.0-4.8) k/uL Monocytes # (0-1.0) k/uL Eosinophils # (0-0.7) k/uL Basophils # (0-0.2) k/uL PT 9.6 (9.0-12.0) sec INR 1.0 (<1.2) APTT 25.6 (22.0-30.0) sec D-Dimer 0.40 (<0.60) mg/L FEU Sodium (137-145) mmol/L Potassium (3.5-5.1) mmol/L Chloride (98-107) mmol/L Carbon Dioxide (22-30) mmol/L Anion Gap mmol/L BUN (9-20) mg/dL Creatinine (0.66-1.25) mg/dL Est GFR (CKD-EPI)AfAm (>60 ml/min/1.73 sqM) Est GFR (CKD-EPI)NonAf (>60 ml/min/1.73 sqM) Glucose (74-99) mg/dL Calcium (8.4-10.2) mg/dL Magnesium (1.6-2.3) mg/dL Total Bilirubin (0.2-1.3) mg/dL AST (17-59) U/L ALT (21-72) U/L Alkaline Phosphatase (38-126) U/L Total Creatine Kinase (55-170) U/L CK-MB (CK-2) (0.0-2.4) ng/mL CK-MB (CK-2) Rel Index Troponin I (0.000-0.034) ng/mL Total Protein (6.3-8.2) g/dL Albumin (3.5-5.0) g/dL - Radiology Data Radiology results: image reviewed (Chest x-ray shows no acute process) Disposition Clinical Impression: Chest pain Disposition: Left Against Medical Advice Instructions: Chest Pain (ED) Additional Instructions: Please follow-up tomorrow with primary care physician and coach operator. The aware that you're leaving AGAINST MEDICAL ADVICE and the recommendation was to stay in the hospital for further testing and cardiac evaluation. Return at any time for change in decision, increased pain, difficulty breathing, nausea or sweating, worsening symptoms or any other concerns. Continue with aspirin daily. Is patient prescribed a controlled substance at d/c from ED?: No Referrals: Ariadne Nunn III, MD [Primary Care Provider] - 1-2 days Theo White MD [STAFF PHYSICIAN] - 1-2 days Time of Disposition: 12:25
[2017-11-28 11:43] LABS: Basophils % (A) 1 %; Eosinophils # (A) 0.2 k/uL (0-0.7); Eosinophils % (A) 2 %; HCT 45.3 % (39.0-53.0); Lymphocytes # (A) 2.1 k/uL (1.0-4.8); Lymphocytes % (A) 31 %; MCH 31.2 pg (25.0-35.0); MCHC 33.1 g/dL (31.0-37.0); MCV 94.3 fL (80.0-100.0); Mean Platelet Volume 7.4; Monocytes # (A) 0.4 k/uL (0-1.0); Monocytes % (A) 6 %; Neutrophils % (A) 58 %; Platelet Count 250 k/uL (150-450); RDW 13.3 % (11.5-15.5); WBC 6.9 k/uL (3.8-10.6)
--- NOTE | 2017-11-28 11:47 | XR ---
EXAMINATION TYPE: XR chest 2V DATE OF EXAM: 11/28/2017 HISTORY: Chest Pain. REFERENCE: Previous study dated 05/24/2016. FINDINGS: The lungs remain clear. Pleural space are clear. The heart is not enlarged. IMPRESSION: NO ACTIVE INTRATHORACIC DISEASE.
[2017-11-28 11:55] LABS: ALT 46 U/L (21-72); AST 29 U/L (17-59); Alkaline Phosphatase 105 U/L (38-126); Anion Gap 8 mmol/L; Blood Urea Nitrogen 15 mg/dL (9-20); Calcium 9.5 mg/dL (8.4-10.2); Carbon Dioxide 24 mmol/L (22-30); Chloride 110 mmol/L (98-107); Creatine Kinase 102 U/L (55-170); Glucose 189 mg/dL (74-99); Magnesium 2.1 mg/dL (1.6-2.3); Potassium 4.5 mmol/L (3.5-5.1); Sodium 142 mmol/L (137-145); Total Bilirubin 0.4 mg/dL (0.2-1.3); Total Protein 6.9 g/dL (6.3-8.2)
[2017-11-28 11:57] LABS: D-Dimer 0.4 mg/L FEU (<0.60); Partial Thromboplastin Time 25.6 sec (22.0-30.0); Prothrombin Time 9.6 sec (9.0-12.0)
[2017-11-28 12:07] LABS: Creatine Kinase MB 0.9 ng/mL (0.0-2.4); Troponin I <0.012 ng/mL (0.000-0.034)
[2017-11-28 12:38] VITALS: BP 155/82; PULSE 59; TEMP 98.7
== END 2017-11-28 12:37 | disposition left against medical advice (07) ==
LOC: EC 11:09
DX: R07.89 Other chest pain (principal); R06.00 Dyspnea, unspecified; R61 Generalized hyperhidrosis; R20.2 Paresthesia of skin; I10 Essential (primary) hypertension; F17.200 Nicotine dependence, unspecified, uncomplicated; Z79.82 Long term (current) use of aspirin; Z79.899 Other long term (current) drug therapy; Z82.49 Family history of ischemic heart disease and other diseases of the circulatory system
CPT/HCPCS: 36415; 71046; 80053; 82550; 82553; 83735; 84484; 85025; 85379; 85610; 85730; 93005; 99285

== ENCOUNTER 2017-12-27 11:41 | Inpatient (IN) | payer BC ==
[2017-12-27 12:52] LABS: Basophils % (A) 1 %; Eosinophils # (A) 0.1 k/uL (0-0.7); Eosinophils % (A) 1 %; HCT 41.3 % (39.0-53.0); HGB 14.4 gm/dL (13.0-17.5); Lymphocytes # (A) 1.8 k/uL (1.0-4.8); Lymphocytes % (A) 22 %; MCH 32.1 pg (25.0-35.0); MCHC 34.9 g/dL (31.0-37.0); MCV 91.9 fL (80.0-100.0); Mean Platelet Volume 7.1; Monocytes # (A) 0.5 k/uL (0-1.0); Monocytes % (A) 7 %; Neutrophils # (A) 5.5 k/uL (1.3-7.7); Neutrophils % (A) 68 %; Platelet Count 254 k/uL (150-450); RBC 4.49 m/uL (4.30-5.90)
--- NOTE | 2017-12-27 13:04 | ED ---
Chest Pain HPI - General Chief Complaint: Chest Pain Stated Complaint: Chest pain Time Seen by Provider: 12/27/17 11:51 Source: patient, RN notes reviewed, old records reviewed Mode of arrival: wheelchair Limitations: no limitations - History of Present Illness Initial Comments: This is a 52-year-old male the ER with known CAD. Patient's sent to ER by chief executive officer for evaluation regards to persistent chest pain. Patient has chest pain left-sided rating to left arm. Occasional shortness of breath. Patient was seen by his chief executive officer in the office and again sent to ER. Patient is had persistent chest pain despite stent placement 2 months ago. No fevers cough or congestion. No known trauma MD Complaint: chest pain -: week(s) Onset: during rest, during exertion Pain Location: left chest Pain Radiation: LUE Severity: moderate Severity scale (1-10): 3 Quality: tightness, heaviness Consistency: intermittent Improves With: nothing Worsens With: nothing Anginal Symptoms: nausea, dyspnea Treatments Prior to Arrival: none - Related Data Home Medications Medication Instructions Recorded Confirmed Aspirin 81 mg PO DAILY 11/17/13 12/27/17 Lisinopril 40 mg PO DAILY 05/25/16 12/27/17 Atorvastatin [Lipitor] 40 mg PO DAILY 12/27/17 12/27/17 Ticagrelor [Brilinta] 90 mg PO BID 12/27/17 12/27/17 amLODIPine [Norvasc] 10 mg PO DAILY 12/27/17 12/27/17 Allergies Allergy/AdvReac Type Severity Reaction Status Date / Time No Known Allergies Allergy Verified 12/27/17 12:36 Review of Systems ROS Statement: Those systems with pertinent positive or pertinent negative responses have been documented in the HPI. ROS Other: All systems not noted in ROS Statement are negative. EKG Findings - EKG Comments: EKG Findings:: EKG shows sinus bradycardia rate of 57, SC 184, QRS 92, QTc 424. Patient does have T-wave inversion inferiorly Past Medical History Past Medical History: Coronary Artery Disease (CAD), GERD/Reflux, Hypertension History of Any Multi-Drug Resistant Organisms: None Reported Past Surgical History: No Surgical Hx Reported, Heart Catheterization With Stent Additional Past Surgical History / Comment(s): pt stated had surgery on thumb for tendons. Past Anesthesia/Blood Transfusion Reactions: No Reported Reaction Past Psychological History: No Psychological Hx Reported Smoking Status: Current every day smoker Past Alcohol Use History: Occasional Past Drug Use History: None Reported - Past Family History Mother Family Medical History: Hypertension Additional Family Medical History / Comment(s): pts mom's dad of heart attack at 75. Father Family Medical History: Cancer, Hypertension Additional Family Medical History / Comment(s): Prostate Cancer General Exam Limitations: no limitations General appearance: alert, in no apparent distress Head exam: Present: atraumatic, normocephalic, normal inspection Eye exam: Present: normal appearance, PERRL, EOMI. Absent: scleral icterus, conjunctival injection, periorbital swelling ENT exam: Present: normal exam, mucous membranes moist Neck exam: Present: normal inspection. Absent: tenderness, meningismus, lymphadenopathy Respiratory exam: Present: normal lung sounds bilaterally. Absent: respiratory distress, wheezes, rales, rhonchi, stridor Cardiovascular Exam: Present: regular rate, normal rhythm, normal heart sounds. Absent: systolic murmur, diastolic murmur, rubs, gallop, clicks GI/Abdominal exam: Present: soft, normal bowel sounds. Absent: distended, tenderness, guarding, rebound, rigid Extremities exam: Present: normal inspection, full ROM, normal capillary refill. Absent: tenderness, pedal edema, joint swelling, calf tenderness Back exam: Present: normal inspection Neurological exam: Present: alert, oriented X3, CN II-XII intact Psychiatric exam: Present: normal affect, normal mood Skin exam: Present: warm, dry, intact, normal color. Absent: rash Course Vital Signs 12/27/17 12/27/17 11:50 12:36 Temperature 98.6 F Pulse Rate 58 L Pulse Rate [ 50 L Investigation Division Lieutenant ] Respiratory 16 Rate Blood Pressure 125/77 O2 Sat by Pulse 96 Oximetry - Reevaluation(s) Reevaluation #1: 12/27/17 14:12 Medical record is reviewed Spoke with Dr. Everett regarding patient's need for inpatient admission Reevaluation #2: 12/27/17 14:12 Patient continues to have chest pain Chest Pain MDM - MDM 52 male the ER for evaluation. Patient does have EKG changes and T-wave inversion, recent history of stents placed, patient sent in from cardiology for admission for heart catheterization. Patient is complaining of episodic chest pain, is currently continuing to have chest pain Critical Care Time Critical Care Time: Yes Total Critical Care Time: 31 Disposition Clinical Impression: Unstable angina pectoris, Angina pectoris, Chest pain Disposition: ADMITTED IP TO THIS [facility] Condition: Undetermined Is patient prescribed a controlled substance at d/c from ED?: No Referrals: Ariadne Nunn III, MD [Primary Care Provider] - 1-2 days
[2017-12-27 13:07] LABS: Partial Thromboplastin Time 26.3 sec (22.0-30.0); Prothrombin Time 9.6 sec (9.0-12.0)
[2017-12-27 13:38] LABS: ALT 51 U/L (21-72); AST 36 U/L (17-59); Albumin 4.1 g/dL (3.5-5.0); Alkaline Phosphatase 79 U/L (38-126); Anion Gap 7 mmol/L; Blood Urea Nitrogen 16 mg/dL (9-20); Calcium 9.6 mg/dL (8.4-10.2); Carbon Dioxide 24 mmol/L (22-30); Chloride 110 mmol/L (98-107); Glucose 95 mg/dL (74-99); Lipase 50 U/L (23-300); Potassium 4.5 mmol/L (3.5-5.1); Sodium 141 mmol/L (137-145); Total Bilirubin 0.6 mg/dL (0.2-1.3); Total Protein 7.1 g/dL (6.3-8.2)
[2017-12-27 13:41] LABS: Creatine Kinase 77 U/L (55-170)
[2017-12-27 13:53] LABS: Creatine Kinase MB 0.6 ng/mL (0.0-2.4); Troponin I <0.012 ng/mL (0.000-0.034)
[2017-12-27] MEDS ORDERED: ASPIRIN 81 MG PO STA (14:08)
[2017-12-27] MEDS ORDERED: NITROGLYCERIN SL TABS 0.4 MG TAB SUBLINGUAL PRN ×2 (14:08→18:20)
[2017-12-27] MEDS ORDERED: HEPARIN SODIUM,PORCINE 5,000 UNIT/ML 1 ML VIAL IV PRN (14:08)
[2017-12-27] MEDS ORDERED: HEPARIN SODIUM,PORCINE 5,000 UNIT/ML 1 ML VIAL IV ONE (14:08)
[2017-12-27 14:11] LABS: Magnesium 2.2 mg/dL (1.6-2.3)
[2017-12-27] MEDS ORDERED: HEPARIN SOD,PORK IN 0.45% NACL 25,000 UNIT in 0.45% NACL 1 500ML.BAG IV SCH (14:15)
[2017-12-27] MEDS ORDERED: MIDAZOLAM 2 MG/2 ML VIAL ONE ×2 (17:14→18:01)
[2017-12-27] MEDS ORDERED: LIDOCAINE 1% INJ 10MG/ML (20 ML MDV) ONE (17:14)
[2017-12-27] MEDS ORDERED: IV FLUID CONTINUATION 1,000 ML IV ONE (17:30)
[2017-12-27] MEDS ORDERED: MIDAZOLAM 2 MG/2 ML VIAL IVP ONE ×2 (17:46→18:02)
[2017-12-27] MEDS ORDERED: LIDOCAINE 1% INJ 10MG/ML (20 ML MDV) SQ ONE (17:49)
[2017-12-27] MEDS ORDERED: VERAPAMIL SYRINGE (5 MG/10 ML) INTRAARTER ONE (17:51)
[2017-12-27] MEDS ORDERED: HEPARIN SODIUM 1,000 UN/ML (10ML VL) IV ONE (17:52)
[2017-12-27] MEDS ORDERED: IOPAMIDOL-370 125ML BTL INJ ONE (18:19)
[2017-12-27] MEDS ORDERED: ATROPINE SULFATE 0.1 MG/ML 10ML SYRINGE IV PRN (18:20)
[2017-12-27] MEDS ORDERED: RX INFO: IV CONTRAST WAS GIVEN 1 EACH MISC MISCELLANE PRN (18:20)
[2017-12-27] MEDS ORDERED: ZOLPIDEM 5 MG TAB PO PRN (18:20)
[2017-12-27] MEDS ORDERED: MAG HYDROX/AL HYDROX/SIMETH 30 ML CUP PO PRN (18:20)
[2017-12-27] MEDS ORDERED: TICAGRELOR 90 MG TAB ONE (18:20)
[2017-12-27] MEDS ORDERED: TICAGRELOR 90 MG TAB PO ONE (18:24)
[2017-12-27] MEDS ORDERED: SODIUM CHLORIDE 0.9% 1,000 ML IV SCH (18:30)
[2017-12-27 20:19] LABS: Creatine Kinase 65 U/L (55-170)
[2017-12-27 20:32] LABS: Creatine Kinase MB 0.6 ng/mL (0.0-2.4); Troponin I <0.012 ng/mL (0.000-0.034)
[2017-12-27] MEDS: METOPROLOL TARTRATE 25 MG TAB PO SCH (21:00)
[2017-12-27] MEDS: TICAGRELOR 90 MG TAB PO SCH ×2 (21:00→21:02)
--- NOTE | 2017-12-27 22:15 | P.HPIM ---
History of Present Illness H&P Date: 12/27/17 Chief Complaint: Chest pain Patient is a 52-year-old male with a known history of coronary artery disease with stent placement on 12/07/2017, GERD, hypertension, hyperlipidemia was sent to ER by his software quality analyst. Patient has been having left-sided chest pain, persistent for the past 3 days. Patient does have minimal short of breath. No nausea vomiting or diaphoresis. No headache or dizziness or lightheadedness. Patient was seen by his software quality analyst in the office and was sent to ER for further evaluation.. No fever. No cough or sputum production. EKG showed sinus bradycardia Troponin 2 negative Review of Systems Constitutional: Patient denies any fever or chills . No generalized weakness or weight loss. Abdomen: Patient denied nausea vomiting and diarrhea and abdominal pain. Cardiovascular: Chest pain. No shortness of breath. no palpitations. Respiratory: patient denied any cough is from production. No shortness of breath Neurologic: Patient denied any numbness or tingling headache. Musculoskeletal: Patient denies any complaints of joint swelling or deformity. Skin: Negative Psychiatric: Negative Endocrine: No heat or cold intolerance. No recent weight gain. Genitourinary: No dysuria or hematuria. All other 14 point ROS negative except the above Past Medical History Past Medical History: Coronary Artery Disease (CAD), GERD/Reflux, Hyperlipidemia , Hypertension History of Any Multi-Drug Resistant Organisms: None Reported Past Surgical History: Heart Catheterization With Stent Additional Past Surgical History / Comment(s): pt stated had surgery on R thumb for tendons, colonoscopy. Past Anesthesia/Blood Transfusion Reactions: No Reported Reaction Date of Last Stent Placement:: 12/07/17 [place] in [place] Past Psychological History: No Psychological Hx Reported Additional Psychological History / Comment(s): Pt resides with his spouse. He is independent. 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 Smoking Status: Current every day smoker Past Alcohol Use History: Occasional Additional Past Alcohol Use History / Comment(s): Pt started smoking in 1977 and is a ppd smoker. Past Drug Use History: None Reported - Past Family History Mother Family Medical History: Hypertension Additional Family Medical History / Comment(s): Paternal grandfather of a AR at the age of 75yrs. Father Family Medical History: Cancer, Hypertension Additional Family Medical History / Comment(s): Prostate Cancer Medications and Allergies Home Medications Medication Instructions Recorded Confirmed Type Aspirin 81 mg PO DAILY 11/17/13 12/27/17 History Lisinopril 40 mg PO DAILY 05/25/16 12/27/17 History Atorvastatin [Lipitor] 40 mg PO DAILY 12/27/17 12/27/17 History Ticagrelor [Brilinta] 90 mg PO BID 12/27/17 12/27/17 History amLODIPine [Norvasc] 10 mg PO DAILY 12/27/17 12/27/17 History Allergies Allergy/AdvReac Type Severity Reaction Status Date / Time No Known Allergies Allergy Verified 12/27/17 12:36 Physical Exam Vitals: Vital Signs Temp Pulse Pulse Resp BP BP Pulse Ox 12/27/17 16:00 97.0 F L 50 L 20 132/68 97 12/27/17 14:46 98.6 F 54 L 20 122/68 98 12/27/17 14:10 50 L 16 119/83 98 12/27/17 14:08 97 12/27/17 13:57 53 L 20 130/77 99 12/27/17 12:36 50 L 12/27/17 11:50 98.6 F 58 L 16 125/77 96 Intake and Output 12/27/17 12/27/17 12/27/17 06:59 14:59 22:59 Intake Total 20.03 175 Balance 20.03 175 Intake: IV 175 Intake, IV Titration 20.03 Amount Heparin Sod,Pork in 0.45% 20.03 NaCl 25,000 unit In 0.45 % NaCl 1 500ml.bag @ 9.6 UNITS/KG/HR 20.03 mls/hr IV .Q24H [facility] Rx#: [id number] Other: Weight 104.326 kg PHYSICAL EXAMINATION: Patient is lying in the bed comfortably, no acute distress, awake alert and oriented.. HEENT: Normocephalic. Neck is supple. Pupils reactive. Nostrils clear. Oral cavity is moist. Ears reveal no drainage. Neck reveals no JVD, carotid bruits, or thyromegaly. CHEST EXAMINATION: Trachea is central. Symmetrical expansion. Lung barnes clear to auscultation and percussion. CARDIAC: Normal S1, S2 with no gallops. No murmurs ABDOMEN: Soft. Bowel sounds normal. No organomegaly. No abdominal bruits. Extremities: reveal no edema. No clubbing or cyanosis Neurologically awake, alert, oriented x3 with well-coordinated movements. No focal deficits noted Skin: No rash or skin lesions. Psychiatric: Coperative. Nonsuicidal Musculoskeletal: No joint swelling or deformity. Normal range of motion. Results CBC & Chem 7: 12/27/17 12:28 12/27/17 12:28 Labs: Abnormal Lab Results - Last 24 Hours (Table) 12/27/17 Range/Units 12:28 Chloride 110 H (98-107) mmol/L Thrombosis Risk Factor Assmnt - DVT/VTE Prophylaxis DVT/VTE Prophylaxis: Pharmacologic Prophylaxis ordered - Choose All That Apply Any of the Below Risk Factors Present?: Yes Each Factor Represents 1 point: Age 41-60 years, Obesity (BMI >25) Other Risk Factors: No Other congenital or acquired thrombophilia - If yes, enter type in comment: No Thrombosis Risk Factor Assessment Total Risk Factor Score: 2 Thrombosis Risk Factor Assessment Level: Low Risk Assessment and Plan Assessment: Chest pain/unstable angina Recent history of stent placement about 2 weeks ago Coronary artery disease Hypertension Hyperlipidemia GERD Currently everyday smoker DVT prophylaxis. Patient is already on heparin drip. plan: Patient will be continued on heparin drip. Troponin 2 negative. Continue with aspirin, Brillanta, statins and beta blockers. Cardiology was consulted for evaluation and possible cardiac catheterization tomorrow. Further recommendations based on the clinical course. Time with Patient: Greater than 30
--- NOTE | 2017-12-27 22:56 | LTR ---
12/27/2017 To: Dr. Nunn Re: Tea Hahn (1965) Dear Dr. Nunn, Mr. Tae Hahn was admitted to the hospital and underwent successful stenting of the PLV branch of the right coronary artery with good angiographic results and without any complication. Thank you for allowing me to participate in his care. Please do not hesitate to call with any questions or concerns. Sincerely, MD JAIDEN Rey / LILIANA: [id number] /
--- NOTE | 2017-12-27 23:10 | CC ---
CARDIAC CATHETERIZATION REPORT DATE OF SERVICE: 12/27/2017 PERFORMING PHYSICIAN: Demarcus Everett MD, web operations lead. PROCEDURES PERFORMED: 1. Selective right and left coronary angiogram. 2. Successful stenting of the PLV branch of the right coronary artery using 2.75 x 15 mm Xience drug-eluting stent with good angiographic results. INDICATION: This is a pleasant 52-year-old gentleman with known history of coronary artery disease and prior stenting of the mid RCA and mid LAD performed in [place] recently. He was seen in the office earlier today with chest discomfort quite consistent with angina. He was admitted to the hospital and scheduled to undergo a heart catheterization later on today. APPROACH: Right radial artery. COMPLICATIONS: None. LEVEL OF SEDATION: Moderate, with sedation length of 30 minutes. PROCEDURE DESCRIPTION: After obtaining informed consent, the patient was brought to the cardiac labor commissioner. The right radial artery was cannulated using micropuncture technique and the micropuncture wire passed easily. Then I placed a 6-Cypriot sheath in the right radial artery. After that I gave the patient 2 mg of verapamil IA and 10,000 units of heparin IV. Selective right and left coronary angiogram was performed using JR4 and JL3.5 catheters. After that I decided to intervene on the right coronary artery. Please see a separate paragraph for that. SELECTIVE CORONARY ANGIOGRAM: 1. The right coronary artery is a large-caliber vessel and is a dominant vessel. The proximal RCA appeared to have mild disease only. The mid RCA is stented and the stent is patent. The RCA distally is normal and bifurcates into PDA and PLV branches. The PDA branch appeared to be angiographically normal and the PLV branch has a disease that appeared to be in the range of 70%. 2. The left main is angiographically normal. It bifurcates into the circumflex and left anterior descending artery. 3. The left circumflex is a large-caliber vessel. It is a nondominant vessel. The left circumflex is angiographically normal and gives rise to multiple medium-sized obtuse marginal branches. Appeared to be angiographically normal. 4. The LAD. The proximal LAD is normal. The mid LAD is stented and the stent is patent. The LAD in the mid portion gives rise to a large diagonal branch which appeared to be angiographically normal. The LAD distally appeared to be angiographically normal. PCI OF THE RCA: Anticoagulation was initiated using heparin. Was given at the beginning of the procedure with ACT monitoring. After that I did engage the RCA using JR4 guide. A run- through wire was used to wire the PLV branch of the right coronary artery. After that I did PTCA ballooning using 2.5 x 12 mm balloon before I deployed 2.75 x 15 mm Xience ELEAZAR where the stent was positioned under fluoroscopy guidance and deployed under its nominal pressure. The following angiogram showed good angiographic results and the procedure was completed without any complication. CONCLUSION: 1. Intermittent episodes of chest discomfort consistent with angina. 2. Patent stents in both the mid RCA and mid LAD. 3. Severe disease involving the PLV branch of the right coronary artery. 4. Successful stenting of the PLV branch of the right coronary artery using 2.75 x 15 mm Xience ELEAZAR with good angiographic results. POST-PROCEDURE MANAGEMENT: 1. Dual anti-platelet therapy. 2. Risk factor modifications. 3. Follow up with the patient. MMODL / IJN: [id number] /
[2017-12-28 00:26] VITALS: RESP 18
[2017-12-28 01:22] LABS: Creatine Kinase MB 0.4 ng/mL (0.0-2.4); Troponin I 0.015 ng/mL (0.000-0.034)
[2017-12-28] MEDS: METOPROLOL TARTRATE 25 MG TAB PO SCH (08:20)
[2017-12-28] MEDS: TICAGRELOR 90 MG TAB PO SCH (08:20)
[2017-12-28 08:26] LABS: Platelet Count 289 k/uL (150-450)
[2017-12-28 08:29] VITALS: TEMP 97.5
[2017-12-28 08:35] LABS: Cholesterol 140 mg/dL (<200); HDL Cholesterol 39 mg/dL (40-60); LDL Cholesterol,Calculated 41 mg/dL (0-99); Triglycerides 302 mg/dL (<150)
[2017-12-28] MEDS ORDERED: ASPIRIN 81 MG PO SCH (09:00)
[2017-12-28] MEDS ORDERED: ATORVASTATIN 80 MG TAB PO SCH (09:00)
[2017-12-28] MEDS ORDERED: amLODIPine 10 MG TAB PO SCH (09:00)
[2017-12-28] MEDS ORDERED: ATORVASTATIN 40 MG TAB PO SCH (09:00)
[2017-12-28] MEDS ORDERED: ASPIRIN 325 MG TAB PO SCH (09:00)
[2017-12-28] MEDS ORDERED: LISINOPRIL 20 MG TAB PO SCH (09:00)
[2017-12-28 10:59] VITALS: BMI 30.2
--- NOTE | 2017-12-28 12:08 | PN ---
PROGRESS NOTE Mr. Hahn is a 52-year-old male of recent stenting, who was seen by Dr. Everett yesterday, has some episode of chest discomfort. He was admitted and we did stent on the PLV. He is doing well this morning. His breathing is stable. He is denying any symptoms of chest pain. No dizziness. No palpitation. He continues to be on amlodipine 10 mg daily, aspirin 81 mg daily, Lipitor 40 mg daily, lisinopril 40 mg daily, Brilinta 90 mg twice a day. PHYSICAL EXAMINATION: Blood pressure 128/70 with a heart in the 60s. LUNGS: Clear. HEART: Regular rate and rhythm. S1, S2. No S3. No rub. ABDOMEN: Soft, nontender. EXTREMITIES: No edema, right radial pulse is intact. LAB DATA: Revealed a creatinine of 0.95. His cholesterol 140, LDL of 41. IMPRESSION: 1. Status post stenting of the right PLV, stable. 2. Status post prior percutaneous revascularization. 3. Hyperlipidemia. RECOMMENDATION: Patient should be able to be discharged home today and followed as an outpatient with Dr. Everett. [facility]MC[facility] / LILIANA: [id number] /
[2017-12-28 12:20] VITALS: BP 139/76; PULSE 53
--- NOTE | 2017-12-28 23:16 | P.DS ---
Providers Date of admission: 12/27/17 14:08 Expected date of discharge: 12/28/17 Attending physician: Pj Waldron Consults: 12/27/17 14:08 Consult Physician Urgent Consulting Provider: Demarcus Everett Consult Reason/Comments: known Do you want consulting provider notified?: Yes 12/27/17 18:20 Consult Physician Routine Consulting Provider: [facility] Consult Reason/Comments: Post Interventional patient Do you want consulting provider notified?: Already Contacted Primary care physician: Ariadne Nunn Hospital Course: Discharge diagnosis Chest pain/unstable angina. Status post successful stenting of PLV branch of RCA Recent history of stent placement about 2 weeks ago Coronary artery disease Hypertension Hyperlipidemia GERD Currently everyday smoker DVT prophylaxis. Patient is already on heparin drip. Hospital course Patient is a 52-year-old male with a known history of coronary artery disease with stent placement on 12/07/2017, GERD, hypertension, hyperlipidemia was sent to ER by his distance learning administrator. Patient has been having left-sided chest pain, persistent for the past 3 days. Patient does have minimal short of breath. No nausea vomiting or diaphoresis. No headache or dizziness or lightheadedness. Patient was seen by his distance learning administrator in the office and was sent to ER for further evaluation.. No fever. No cough or sputum production. EKG showed sinus bradycardia Troponin 3 negative plan: Patient was continued on heparin drip. Troponin 3 negative. Continued with aspirin, Brillanta, statins and beta blockers. Cardiology was consulted and patient underwent cardiac catheterization with stenting of PLV branch of RCA. Currently chest pain is resolved. Stable to be discharged home. PHYSICAL EXAMINATION: Patient is lying in the bed comfortably, no acute distress, awake alert and oriented.. HEENT: Normocephalic. Neck is supple. Pupils reactive. Nostrils clear. Oral cavity is moist. Ears reveal no drainage. Neck reveals no JVD, carotid bruits, or thyromegaly. CHEST EXAMINATION: Trachea is central. Symmetrical expansion. Lung barnes clear to auscultation and percussion. CARDIAC: Normal S1, S2 with no gallops. No murmurs ABDOMEN: Soft. Bowel sounds normal. No organomegaly. No abdominal bruits. Extremities: reveal no edema. No clubbing or cyanosis Neurologically awake, alert, oriented x3 with well-coordinated movements. No focal deficits noted Skin: No rash or skin lesions. Psychiatric: Coperative. Nonsuicidal Musculoskeletal: No joint swelling or deformity. Normal range of motion. Vital Signs - 24 hr 12/28/17 12/28/17 12/28/17 00:00 03:28 08:00 Temperature 98.5 F 98.0 F 97.5 F L Pulse Rate [ 56 L Pulse Oximetery ] Respiratory 18 18 18 Rate Blood Pressure 127/72 116/67 128/75 [Left Arm Supine] O2 Sat by Pulse 98 98 96 Oximetry 12/28/17 12:00 Temperature 97.5 F L Pulse Rate [ 53 L Pulse Oximetery ] Respiratory 18 Rate Blood Pressure 139/76 [Left Arm Supine] O2 Sat by Pulse 98 Oximetry Patient Condition at Discharge: Stable Plan - Discharge Summary Discharge Rx Participant: No New Discharge Prescriptions: New Metoprolol Tartrate [Lopressor] 25 mg PO BID #60 tab Nitroglycerin Sl Tabs [Nitrostat] 0.4 mg SUBLINGUAL Q5M PRN #30 tab PRN Reason: Chest Pain Continue Aspirin 81 mg PO DAILY Lisinopril 40 mg PO DAILY amLODIPine [Norvasc] 10 mg PO DAILY Atorvastatin [Lipitor] 40 mg PO DAILY Ticagrelor [Brilinta] 90 mg PO BID Discharge Medication List Aspirin 81 mg PO DAILY 11/17/13 [History] Lisinopril 40 mg PO DAILY 05/25/16 [History] Atorvastatin [Lipitor] 40 mg PO DAILY 12/27/17 [History] Ticagrelor [Brilinta] 90 mg PO BID 12/27/17 [History] amLODIPine [Norvasc] 10 mg PO DAILY 12/27/17 [History] Metoprolol Tartrate [Lopressor] 25 mg PO BID #60 tab 12/28/17 [Rx] Nitroglycerin Sl Tabs [Nitrostat] 0.4 mg SUBLINGUAL Q5M PRN #30 tab 12/28/17 [Rx ] Follow up Appointment(s)/Referral(s): Demarcus Everett MD [STAFF PHYSICIAN] - 01/04/18 1:30 pm (Wednesday) Ariadne Nunn III, MD [Primary Care Provider] - 01/04/18 4:00 pm (Wednesday) Patient Instructions/Handouts: *[facility] - After Heart Catheterization - Uniforms Sales Representative Instructions, Left Heart Catheterization (DC) Discharge Disposition: HOME SELF-CARE
== END 2017-12-28 14:49 | disposition home or self-care (01) | DRG 247 ==
LOC: EC 11:41 → 3NMEDONC 14:08 → 3SCARD 14:15
PROVIDERS: ADMIT Hospitalist; ATTEND Hospitalist
PROC: 4A023N7 Measurement of Cardiac Sampling and Pressure, Left Heart, Percutaneous Approach (ICD-10-PCS; principal; 2017-12-27 17:00)
PROC: 027034Z Dilation of Coronary Artery, One Artery with Drug-eluting Intraluminal Device, Percutaneous Approach (ICD-10-PCS; principal; 2017-12-27 17:00)
PROC: B2111ZZ Fluoroscopy of Multiple Coronary Arteries using Low Osmolar Contrast (ICD-10-PCS; principal; 2017-12-27 17:00)
DX: I25.110 Atherosclerotic heart disease of native coronary artery with unstable angina pectoris (principal); E78.5 Hyperlipidemia, unspecified; F17.200 Nicotine dependence, unspecified, uncomplicated; I10 Essential (primary) hypertension; K21.9 Gastro-esophageal reflux disease without esophagitis; Z79.02 Long term (current) use of antithrombotics/antiplatelets; Z79.82 Long term (current) use of aspirin; Z79.899 Other long term (current) drug therapy; Z80.42 Family history of malignant neoplasm of prostate; Z82.49 Family history of ischemic heart disease and other diseases of the circulatory system; Z95.5 Presence of coronary angioplasty implant and graft
CPT/HCPCS: 36415; 80053; 80061; 82550; 82553; 82565; 83690; 83735; 84484; 85025; 85049; 85610; 85730; 93005; 93454; 96374; 99291; C1874

== ENCOUNTER 2018-01-02 00:22 | Observation (INO) | payer BC ==
[2018-01-02] MEDS ORDERED: ASPIRIN 81 MG PO STA (00:35)
--- NOTE | 2018-01-02 00:44 | ED ---
Chest Pain HPI - General Chief Complaint: Chest Pain Stated Complaint: chest pain Time Seen by Provider: 01/02/18 00:35 Source: patient Mode of arrival: wheelchair Limitations: no limitations - History of Present Illness Initial Comments: Current is a 52-year-old gentleman with a past medical history of coronary artery disease status post stenting approximately 3 weeks ago at an outside hospital, as well as a repeat cardiac catheterization with stent on December 27 at our hospital. Patient has a history of hypertension, hyperlipidemia and is occur every day cigarette smoker. Patient reports that ever since his first stent he has continued to have chest discomfort. He reports that the chest discomfort is progressively worsened, he states that today after going for a brief walk outside he felt like the discomfort was worse so his brought him back to the ER for further evaluation. Patient reports that he has been absolutely compliant with all of his medications including his aspirin and Brilenta. He states that this evening when he began having worsening chest pain he took 2 more baby aspirin prior to coming to the emergency department. Patient reports that there are no relieving factors to his chest pain. - Related Data Home Medications Medication Instructions Recorded Confirmed Aspirin 81 mg PO DAILY 11/17/13 12/27/17 Lisinopril 40 mg PO DAILY 05/25/16 12/27/17 Atorvastatin [Lipitor] 40 mg PO DAILY 12/27/17 12/27/17 Ticagrelor [Brilinta] 90 mg PO BID 12/27/17 12/27/17 amLODIPine [Norvasc] 10 mg PO DAILY 12/27/17 12/27/17 Previous Rx's Medication Instructions Recorded Metoprolol Tartrate [Lopressor] 25 mg PO BID #60 tab 12/28/17 Nitroglycerin Sl Tabs [Nitrostat] 0.4 mg SUBLINGUAL Q5M PRN #30 tab 12/28/17 Allergies Allergy/AdvReac Type Severity Reaction Status Date / Time No Known Allergies Allergy Verified 01/02/18 00:30 Review of Systems ROS Statement: Those systems with pertinent positive or pertinent negative responses have been documented in the HPI. ROS Other: All systems not noted in ROS Statement are negative. EKG Findings - EKG Comments: EKG Findings:: EKG obtained at 12:37 AM, rate is 68 rhythm is sinus bradycardia , there is normal axis, MI mildly prolonged 200, QRS is 94, QTC is 414. There are no acute ST elevations or depressions no evidence of acute ischemia or infarction. Past Medical History Past Medical History: Coronary Artery Disease (CAD), GERD/Reflux, Hyperlipidemia , Hypertension History of Any Multi-Drug Resistant Organisms: None Reported Past Surgical History: Heart Catheterization With Stent Additional Past Surgical History / Comment(s): pt stated had surgery on R thumb for tendons, colonoscopy. Past Anesthesia/Blood Transfusion Reactions: No Reported Reaction Date of Last Stent Placement:: 12/07/17 [place] in [place] Past Psychological History: No Psychological Hx Reported Smoking Status: Current every day smoker Past Alcohol Use History: Occasional Past Drug Use History: None Reported - Past Family History Mother Family Medical History: Hypertension Additional Family Medical History / Comment(s): Paternal grandfather of a [place] at the age of 75yrs. Father Family Medical History: Cancer, Hypertension Additional Family Medical History / Comment(s): Prostate Cancer General Exam - General Exam Comments Initial Comments: Physical Exam GENERAL: Patient is well-developed and well-nourished. Patient is nontoxic and well- hydrated and is in no distress. HENT: Normocephalic, Atraumatic. EYES: PERRL, EOMI PULMONARY: Unlabored respirations. No audible rales rhonchi or wheezing was noted. CARDIOVASCULAR: There is a regular rate and rhythm without any murmurs gallops or rubs. ABDOMEN: Soft and nontender with normal bowel sounds. SKIN: Skin is clear with no lesions or rashes and otherwise unremarkable. : Deferred NEUROLOGIC: Patient is alert and oriented x3. Moving all extremities spontaneously MUSCULOSKELETAL: Normal extremities with adequate strength and full range of motion. No lower extremity swelling or edema. No calf tenderness. PSYCHIATRIC: Normal psychiatric evaluation. Limitations: no limitations Limitations: no limitations Course Vital Signs 01/02/18 00:28 Temperature 98.0 F Pulse Rate 86 Respiratory 20 Rate Blood Pressure 138/60 O2 Sat by Pulse 97 Oximetry Chest Pain MDM - MDM The patient was seen and evaluated, history was obtained from the patient and at bedside Patient with recently diagnosed coronary artery disease status post stenting 2 at outside facility with recurrent chest pain and stenting 1 in this facility. Patient returning to the ER today with persistent chest pain which worsened tonight after going for a walk. EKG nonischemic Patient had appropriate aspirin prior to arrival he is also taking Monika Labs and imaging were ordered Labs are unremarkable, chest x-ray with no acute findings In the patient's recent history I do feel is very high risk for having an acute coronary syndrome and does warrant evaluation by cardiology. We'll place the patient in observation for further evaluation. Disposition Clinical Impression: Chest pain Disposition: ADMITTED IP TO THIS HOSP
[2018-01-02 00:58] LABS: Basophils # (A) 0.1 k/uL (0-0.2); Basophils % (A) 1 %; Eosinophils # (A) 0.1 k/uL (0-0.7); Eosinophils % (A) 1 %; HGB 14.2 gm/dL (13.0-17.5); Lymphocytes # (A) 3.3 k/uL (1.0-4.8); Lymphocytes % (A) 32 %; MCH 31.7 pg (25.0-35.0); MCHC 33.7 g/dL (31.0-37.0); MCV 94.1 fL (80.0-100.0); Mean Platelet Volume 6.8; Monocytes # (A) 0.8 k/uL (0-1.0); Monocytes % (A) 7 %; Neutrophils # (A) 5.9 k/uL (1.3-7.7); Neutrophils % (A) 57 %; Platelet Count 262 k/uL (150-450); RBC 4.47 m/uL (4.30-5.90); RDW 13.1 % (11.5-15.5); WBC 10.5 k/uL (3.8-10.6)
[2018-01-02 01:09] LABS: Partial Thromboplastin Time 25.4 sec (22.0-30.0); Prothrombin Time 9.5 sec (9.0-12.0)
[2018-01-02 01:10] LABS: ALT 67 U/L (21-72); AST 40 U/L (17-59); Albumin 4.1 g/dL (3.5-5.0); Alkaline Phosphatase 83 U/L (38-126); Anion Gap 9 mmol/L; Blood Urea Nitrogen 23 mg/dL (9-20); Calcium 9.3 mg/dL (8.4-10.2); Carbon Dioxide 20 mmol/L (22-30); Chloride 111 mmol/L (98-107); Glucose 111 mg/dL (74-99); Magnesium 2.1 mg/dL (1.6-2.3); Sodium 140 mmol/L (137-145); Total Bilirubin 0.4 mg/dL (0.2-1.3); Total Protein 7.1 g/dL (6.3-8.2)
[2018-01-02 01:12] LABS: Creatine Kinase 111 U/L (55-170)
--- NOTE | 2018-01-02 01:15 | XR ---
EXAMINATION TYPE: XR chest 2V DATE OF EXAM: 01/02/2018 COMPARISON: 11/28/2017 HISTORY: Chest pain TECHNIQUE: Frontal and lateral views of the chest are obtained. FINDINGS: Heart and mediastinum are normal. Lungs are clear. Diaphragm is normal. There are chest le ads. Bony thorax is intact. IMPRESSION: Normal chest. No change.
[2018-01-02 01:23] LABS: Potassium 4.3 mmol/L (3.5-5.1)
[2018-01-02 01:26] LABS: Creatine Kinase MB 0.6 ng/mL (0.0-2.4); Troponin I <0.012 ng/mL (0.000-0.034)
[2018-01-02] MEDS ORDERED: KETOROLAC 30 MG/ML 1 ML VIAL IVP STA (01:28)
[2018-01-02 04:00] VITALS: BMI 30.4
[2018-01-02 06:59] LABS: Creatine Kinase 92 U/L (55-170)
[2018-01-02 07:12] LABS: Creatine Kinase MB 0.7 ng/mL (0.0-2.4); Troponin I <0.012 ng/mL (0.000-0.034)
[2018-01-02] MEDS: amLODIPine 10 MG TAB PO SCH (09:12)
[2018-01-02] MEDS: LISINOPRIL 20 MG TAB PO SCH (09:12)
[2018-01-02] MEDS: METOPROLOL TARTRATE 25 MG TAB PO SCH ×2 (09:12→20:00)
[2018-01-02] MEDS: TICAGRELOR 90 MG TAB PO SCH ×2 (09:12→20:00)
[2018-01-02] MEDS: ATORVASTATIN 40 MG TAB PO SCH (09:12)
--- NOTE | 2018-01-02 11:42 | P.CRDCN ---
History of Present Illness Consult date: 01/02/18 Requesting physician: Bora Parks Reason for Consult (text): chest pain Chief complaint: chest pain History of present illness: This is a pleasant 52-year-old gentleman with history of CAD, prior stenting of the mid RCA and mid LAD performed recently in [place]. Was admitted to the office a little less than a week ago with complaints of ongoing chest discomfort quite consistent with his anginal symptoms. He was admitted and underwent subsequent cardiac catheterization that showed patent stents in both the mid RCA and mid LAD with severe disease involving the PLV branch the RCA. Subsequently underwent successful stenting of the PLV branch of the RCA. Was discharged home. He presents this admission with complaints of ongoing chest discomfort. He describes the discomfort as a squeezing that is pretty constant. Only time he had relief from this discomfort was after drinking a couple beers when he was out with friends. Says the discomfort is worse with activity and worse with lying down. He has been compliant with his medications. Unfortunately he does continue to smoke a few cigarettes a day. EKG on admission shows sinus bradycardia with ST-T wave abnormalities similar to previous. Troponins were negative 2. NT proBNP came back at 53. BUN is 23 and creatinine 1.07. CBC is normal. Vital signs are relatively stable. Patient continues to complain of some squeezing chest discomfort at rest. Not relieved by nitroglycerin. Past Medical History Past Medical History: Coronary Artery Disease (CAD), GERD/Reflux, Hyperlipidemia , Hypertension History of Any Multi-Drug Resistant Organisms: None Reported Past Surgical History: Heart Catheterization With Stent Additional Past Surgical History / Comment(s): pt stated had surgery on R thumb for tendons, colonoscopy. Past Anesthesia/Blood Transfusion Reactions: No Reported Reaction Date of Last Stent Placement:: 12/07/17 GB in [place] Past Psychological History: No Psychological Hx Reported Smoking Status: Current every day smoker Past Alcohol Use History: Occasional Past Drug Use History: None Reported - Past Family History Mother Family Medical History: Hypertension Additional Family Medical History / Comment(s): Paternal grandfather of a [place] at the age of 75yrs. Father Family Medical History: Cancer, Hypertension Additional Family Medical History / Comment(s): Prostate Cancer Medications and Allergies Home Medications Medication Instructions Recorded Confirmed Type Aspirin 81 mg PO DAILY 11/17/13 01/02/18 History Lisinopril 40 mg PO DAILY 05/25/16 01/02/18 History Atorvastatin [Lipitor] 40 mg PO DAILY 12/27/17 01/02/18 History Ticagrelor [Brilinta] 90 mg PO BID 12/27/17 01/02/18 History amLODIPine [Norvasc] 10 mg PO DAILY 12/27/17 01/02/18 History Metoprolol Tartrate [Lopressor] 25 mg PO BID #60 tab 12/28/17 01/02/18 Rx Nitroglycerin Sl Tabs [Nitrostat] 0.4 mg SUBLINGUAL Q5M PRN #30 tab 12/28/1701/09 Rx Allergies Allergy/AdvReac Type Severity Reaction Status Date / Time No Known Allergies Allergy Verified 01/02/18 08:50 Physical Exam Vitals: Vital Signs Temp Pulse Pulse Resp BP BP Pulse Ox 01/02/18 08:00 98.2 F 61 18 119/63 97 01/02/18 04:00 97.4 F L 51 L 18 142/79 97 01/02/18 03:20 56 L 10 L 117/73 94 L 01/02/18 03:00 52 L 14 119/74 94 L 01/02/18 02:21 97.4 F L 51 L 18 142/79 97 01/02/18 02:00 50 L 16 126/73 97 01/02/18 01:20 51 L 18 126/78 97 01/02/18 01:00 53 L 12 137/77 97 01/02/18 00:40 61 10 L 153/103 99 01/02/18 00:28 98.0 F 86 20 138/60 97 Intake and Output 01/01/18 01/02/18 01/02/18 22:59 06:59 14:59 Intake Total 0 Balance 0 Intake: Oral 0 Other: Weight 104.6 kg PHYSICAL EXAMINATION: HEENT: Head is atraumatic, normocephalic. Pupils equal, round. Neck is supple. There is no elevated jugular venous pressure. HEART EXAMINATION: Heart sounds regular, S1 and S2 normal. No murmur or gallop heard. CHEST EXAMINATION: Lungs are clear to auscultation and precussion. No chest wall tenderness is noted on palpation or with deep breathing. ABDOMEN: Soft, nontender. Bowel sounds are heard. No organomegaly noted. EXTREMITIES: 2+ peripheral pulses with no evidence of peripheral edema and no calf tenderness noted. Right radial puncture site without hematoma. NEUROLOGIC patient is awake, alert and oriented x3.] . Results 01/02/18 00:44 01/02/18 00:44 Cardiac Enzymes 01/02/18 01/02/18 01/02/18 Range/Units 00:44 00:44 06:12 AST 40 (17-59) U/L CK-MB (CK-2) 0.6 0.7 (0.0-2.4) ng/mL Troponin I <0.012 <0.012 (0.000-0.034) ng/mL Coagulation 01/02/18 Range/Units 00:44 PT 9.5 (9.0-12.0) sec APTT 25.4 (22.0-30.0) sec CBC 01/02/18 Range/Units 00:44 WBC 10.5 (3.8-10.6) k/uL RBC 4.47 (4.30-5.90) m/uL Hgb 14.2 (13.0-17.5) gm/dL Hct 42.0 (39.0-53.0) % Plt Count 262 (150-450) k/uL Comprehensive Metabolic Panel 01/02/18 Range/Units 00:44 Sodium 140 (137-145) mmol/L Potassium 4.3 (3.5-5.1) mmol/L Chloride 111 H (98-107) mmol/L Carbon Dioxide 20 L (22-30) mmol/L BUN 23 H (9-20) mg/dL Creatinine 1.07 (0.66-1.25) mg/dL Glucose 111 H (74-99) mg/dL Calcium 9.3 (8.4-10.2) mg/dL AST 40 (17-59) U/L ALT 67 (21-72) U/L Alkaline Phosphatase 83 (38-126) U/L Total Protein 7.1 (6.3-8.2) g/dL Albumin 4.1 (3.5-5.0) g/dL Current Medications Generic Name Dose Route Start Last Admin Trade Name Freq PRN Reason Stop Dose Admin Amlodipine Besylate 10 mg 01/02/18 09:00 01/02/18 09:12 Norvasc PO 10 mg DAILY KEITH Administration Aspirin 81 mg 01/03/18 09:00 Aspirin PO DAILY [facility] Atorvastatin Calcium 40 mg 01/02/18 09:00 01/02/18 09:12 Lipitor PO 40 mg DAILY KEITH Administration Lisinopril 40 mg 01/02/18 09:00 01/02/18 09:12 Zestril PO 40 mg DAILY KEITH Administration Metoprolol Tartrate 25 mg 01/02/18 09:00 01/02/18 09:12 Lopressor PO 25 mg BID KEITH Administration Nitroglycerin 0.4 mg 01/02/18 02:04 Nitrostat SUBLINGUAL Q5M PRN Chest Pain Ticagrelor 90 mg 01/02/18 09:00 01/02/18 09:12 Brilinta PO 90 mg BID KEITH Administration Intake and Output 01/01/18 01/02/18 01/02/18 22:59 06:59 14:59 Intake Total 0 Balance 0 Intake: Oral 0 Other: Weight 104.6 kg 01/02/18 00:44 01/02/18 00:44 Assessment and Plan Assessment: #1 symptoms of chest pain in patient with recent stenting of the mid RCA, mid LAD and PLV branch of the RCA #2 hypertension #3 hyperlipidemia #4 GERD #5 nicotine dependence Plan: From cardiology's perspective, the patient nothing by mouth after midnight. We will discuss patient's symptoms with his primary community pharmacist Dr. Everett. Further recommendations to follow. TREASURY ANALYST note has been reviewed, I agree with a documented findings and plan of care. Patient was seen and examined.
--- NOTE | 2018-01-02 11:45 | P.HPIM ---
History of Present Illness Patient is a pleasant 50-year-old gentleman with known history of coronary disease had stenting to LAD, mid RCA recently to PLV came with persistent chest discomfort along with some shortness of breath denied any diaphoresis constant pain pressure-like mild to moderate. Nonradiating. 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 Mild sinus bradycardia. Patient is admitted for evaluation by cardiology. Denied any fever chills cough chest pain is nonpleuritic not associated with food. Patient did cut down on His Smoking Smokes about 1-2 Cigarettes a Day Review of Systems REVIEW OF SYSTEMS: CONSTITUTIONAL: No fever, no malaise, no fatigue. HEENT: No recent visual problems or hearing problems. Denied any sore throat. CARDIOVASCULAR: orthopnea, PND, no palpitations, no syncope. PULMONARY: no cough, no hemoptysis. GASTROINTESTINAL: No diarrhea, no nausea, no vomiting, no abdominal pain. Normoactive bowel sounds. NEUROLOGICAL: No headaches, no weakness, no numbness. HEMATOLOGICAL: Denies any bleeding or petechiae. GENITOURINARY: Denies any burning micturition, frequency, or urgency. MUSCULOSKELETAL/RHEUMATOLOGICAL: Denies any joint pain, swelling, or any muscle pain. ENDOCRINE: Denies any polyuria or polydipsia. The rest of the 14-point review of systems is negative. Past Medical History Past Medical History: Coronary Artery Disease (CAD), GERD/Reflux, Hyperlipidemia , Hypertension History of Any Multi-Drug Resistant Organisms: None Reported Past Surgical History: Heart Catheterization With Stent Additional Past Surgical History / Comment(s): pt stated had surgery on R thumb for tendons, colonoscopy. Past Anesthesia/Blood Transfusion Reactions: No Reported Reaction Date of Last Stent Placement:: 12/07/17 in [place] Past Psychological History: No Psychological Hx Reported Smoking Status: Current every day smoker Past Alcohol Use History: Occasional Past Drug Use History: None Reported - Past Family History Mother Family Medical History: Hypertension Additional Family Medical History / Comment(s): Paternal grandfather of a [place] at the age of 75yrs. Father Family Medical History: Cancer, Hypertension Additional Family Medical History / Comment(s): Prostate Cancer Medications and Allergies Home Medications Medication Instructions Recorded Confirmed Type Aspirin 81 mg PO DAILY 11/17/13 01/02/18 History Lisinopril 40 mg PO DAILY 05/25/16 01/02/18 History Atorvastatin [Lipitor] 40 mg PO DAILY 12/27/17 01/02/18 History Ticagrelor [Brilinta] 90 mg PO BID 12/27/17 01/02/18 History amLODIPine [Norvasc] 10 mg PO DAILY 12/27/17 01/02/18 History Metoprolol Tartrate [Lopressor] 25 mg PO BID #60 tab 12/28/17 01/02/18 Rx Nitroglycerin Sl Tabs [Nitrostat] 0.4 mg SUBLINGUAL Q5M PRN #30 tab 12/28/1701/09 Rx Allergies Allergy/AdvReac Type Severity Reaction Status Date / Time No Known Allergies Allergy Verified 01/02/18 08:50 Physical Exam Vitals: Vital Signs Temp Pulse Pulse Resp BP BP Pulse Ox 01/02/18 08:00 98.2 F 61 18 119/63 97 01/02/18 04:00 97.4 F L 51 L 18 142/79 97 01/02/18 03:20 56 L 10 L 117/73 94 L 01/02/18 03:00 52 L 14 119/74 94 L 01/02/18 02:21 97.4 F L 51 L 18 142/79 97 01/02/18 02:00 50 L 16 126/73 97 01/02/18 01:20 51 L 18 126/78 97 01/02/18 01:00 53 L 12 137/77 97 01/02/18 00:40 61 10 L 153/103 99 01/02/18 00:28 98.0 F 86 20 138/60 97 Intake and Output 01/01/18 01/02/18 01/02/18 22:59 06:59 14:59 Intake Total 0 Balance 0 Intake: Oral 0 Other: Weight 104.6 kg PHYSICAL EXAMINATION: GENERAL: The patient is alert and oriented x3, not in any acute distress. Well developed, well nourished. HEENT: Pupils are round and equally reacting to light. EOMI. No scleral icterus. No conjunctival pallor. Normocephalic, atraumatic. No pharyngeal erythema. No thyromegaly. CARDIOVASCULAR: S1 and S2 present. No murmurs, rubs, or gallops. PULMONARY: Chest is clear to auscultation, no wheezing or crackles. ABDOMEN: Soft, nontender, nondistended, normoactive bowel sounds. No palpable organomegaly. MUSCULOSKELETAL: No joint swelling or deformity. EXTREMITIES: No cyanosis, clubbing, or pedal edema. NEUROLOGICAL: Gross neurological examination did not reveal any focal deficits. SKIN: No rashes. Results CBC & Chem 7: 01/02/18 00:44 01/02/18 00:44 Labs: Abnormal Lab Results - Last 24 Hours (Table) 01/02/18 Range/Units 00:44 Chloride 111 H (98-107) mmol/L Carbon Dioxide 20 L (22-30) mmol/L BUN 23 H (9-20) mg/dL Glucose 111 H (74-99) mg/dL Thrombosis Risk Factor Assmnt - Choose All That Apply Any of the Below Risk Factors Present?: Yes Each Factor Represents 1 point: Age 41-60 years, Obesity (BMI >25) Other Risk Factors: No Other congenital or acquired thrombophilia - If yes, enter type in comment: No Thrombosis Risk Factor Assessment Total Risk Factor Score: 2 Thrombosis Risk Factor Assessment Level: Low Risk Assessment and Plan Plan: Chest pain: We will rule out acute coronary syndromes, patient is admitted for unstable angina. Cardiology will evaluate the patient. For the patient regarding stress test a repeat catheterization as per cardiology Ryan coronary artery disease with multiple stents in the past. -Nicotine abuse: Counseling was provided -Hypertension -hyperlipidemia -Gastroesophageal reflux disease For above-mentioned chronic medical problems patient will be resumed and continued on appropriate home medications
[2018-01-02 13:20] LABS: Creatine Kinase 79 U/L (55-170)
[2018-01-02 13:34] LABS: Creatine Kinase MB 0.5 ng/mL (0.0-2.4); Troponin I <0.012 ng/mL (0.000-0.034)
[2018-01-02] MEDS: NITROGLYCERIN SL TABS 0.4 MG TAB SUBLINGUAL PRN ×2 (17:31→17:38)
[2018-01-03 05:11] VITALS: RESP 16
[2018-01-03 07:27] LABS: Cholesterol 137 mg/dL (<200); HDL Cholesterol 32 mg/dL (40-60); LDL Cholesterol,Calculated 53 mg/dL (0-99); Triglycerides 259 mg/dL (<150)
[2018-01-03] MEDS: METOPROLOL TARTRATE 25 MG TAB PO SCH ×2 (08:57→19:51)
[2018-01-03] MEDS: LISINOPRIL 20 MG TAB PO SCH (08:58)
[2018-01-03] MEDS: amLODIPine 10 MG TAB PO SCH (08:58)
[2018-01-03] MEDS: ATORVASTATIN 40 MG TAB PO SCH (08:58)
[2018-01-03] MEDS: TICAGRELOR 90 MG TAB PO SCH ×2 (08:58→19:51)
[2018-01-03] MEDS ORDERED: ASPIRIN 81 MG PO SCH (09:00)
[2018-01-03] MEDS ORDERED: REGADENOSON 0.4 MG/5 ML SYRINGE IV ONE (09:35)
[2018-01-03] MEDS ORDERED: CAFFEINE CITRATE 60 MG/3 ML VIAL IV PRN (09:35)
--- NOTE | 2018-01-03 12:34 | P.PN ---
Subjective 50-year-old with history of coronary disease and previous stenting to LAD, mid RCA and PLv came in with exertional chest pain. Was evaluated cardiology and wanted wanted him 1 more day continues to have some exertional chest discomfort cardiology may often going for cardiac catheterization tomorrow. Troponin seronegative please refer to cardiology dictation for EKG findings Constitutional: Denied any fatigue denied any fever. Cardio vascular: denied any palpitations Gastrointestinal denied any nausea vomiting Pulmonary: Denied any shortness of breath cough Neurologic denied any new focal deficits All inpatient medications were reviewed and appropriate changes in these medications as dictated in the interval history and assessment and plan. Objective - Vital Signs Vital signs: Vital Signs Temp 97.4 F L 01/03/18 00:00 Pulse 68 01/03/18 04:00 Resp 16 01/03/18 04:00 BP 127/56 01/03/18 04:00 Pulse Ox 98 01/03/18 04:00 Intake & Output 01/02/18 01/03/18 01/03/18 18:59 06:59 18:59 Intake Total 480 480 Balance 480 480 Weight 103.1 kg Intake: Oral 480 480 Other: # Voids 3 2 - Exam PHYSICAL EXAMINATION: GENERAL: The patient is alert and oriented x3, not in any acute distress. Well developed, well nourished. HEENT: Pupils are round and equally reacting to light. EOMI. No scleral icterus. No conjunctival pallor. Normocephalic, atraumatic. No pharyngeal erythema. No thyromegaly. CARDIOVASCULAR: S1 and S2 present. No murmurs, rubs, or gallops. PULMONARY: Chest is clear to auscultation, no wheezing or crackles. ABDOMEN: Soft, nontender, nondistended, normoactive bowel sounds. No palpable organomegaly. MUSCULOSKELETAL: No joint swelling or deformity. EXTREMITIES: No cyanosis, clubbing, or pedal edema. NEUROLOGICAL: Gross neurological examination did not reveal any focal deficits. SKIN: No rashes. - Labs CBC & Chem 7: 01/02/18 00:44 01/02/18 00:44 Labs: Abnormal Lab Results - Last 24 Hours (Table) 01/02/18 Range/Units 06:12 Triglycerides 259 H (<150) mg/dL HDL Cholesterol 32 L (40-60) mg/dL Assessment and Plan Plan: Chest pain: We will rule out acute coronary syndromes, patient is admitted for unstable angina. Cardiology recommendations as mentioned above possibly of cardiac catheterization tomorrow -History of coronary artery disease with multiple stents in the past. -Nicotine abuse: Counseling was provided -Hypertension -hyperlipidemia -Gastroesophageal reflux disease For above-mentioned chronic medical problems patient will be resumed and continued on appropriate home medications
[2018-01-03] MEDS ORDERED: NITROGLYCERIN SL TABS 0.4 MG TAB SUBLINGUAL PRN (14:09)
[2018-01-03] MEDS ORDERED: ALPRAZolam 0.5 MG TAB PO PRN (14:09)
[2018-01-03] MEDS ORDERED: SODIUM CHLORIDE 0.9% 1,000 ML in EMPTY BAG 1 BAG IV ONE (14:09)
[2018-01-03] MEDS ORDERED: ALPRAZolam 0.25 MG TAB PO PRN (14:09)
--- NOTE | 2018-01-03 14:16 | P.PN ---
Subjective Progress Note Date: 01/03/18 This is a pleasant 52-year-old gentleman with history of CAD, prior stenting of the mid RCA and mid LAD performed recently in [place]. Was admitted to the office a little less than a week ago with complaints of ongoing chest discomfort quite consistent with his anginal symptoms. He was admitted and underwent subsequent cardiac catheterization that showed patent stents in both the mid RCA and mid LAD with severe disease involving the PLV branch the RCA. Subsequently underwent successful stenting of the PLV branch of the RCA. Was discharged home. He presents this admission with complaints of ongoing chest discomfort. The patient was seen and examined this morning, he states he went for a walk [place] earlier this [place] and did develop some tightness midsternally. At the time of my examination he is currently chest pain-free. Blood pressure 128/50 with a heart rate in the 60s, 98% on room air. Because of the ongoing symptoms of chest discomfort patient has been advised to undergo cardiac catheterization. The risks and benefits again were explained to the patient, this will be performed tomorrow by Dr. Talavera. Objective - Vital Signs Vital signs: Vital Signs Temp 97.4 F L 01/03/18 00:00 Pulse 68 01/03/18 04:00 Resp 16 01/03/18 04:00 BP 127/56 01/03/18 04:00 Pulse Ox 98 01/03/18 04:00 Intake & Output 01/02/18 01/03/18 01/03/18 18:59 06:59 18:59 Intake Total 480 480 360 Balance 480 480 360 Weight 103.1 kg Intake: Oral 480 480 360 Other: # Voids 3 2 - Exam PHYSICAL EXAMINATION: GENERAL: 52-year-old gentleman in no acute distress at the time of my examination HEENT: Head is atraumatic, normocephalic. Pupils equal, round. Sclera anicteric. Conjunctiva are clear. Mucous membranes of the mouth are moist. Neck is supple. There is no elevated jugular venous pressure.] bruit is heard. HEART EXAMINATION: Heart S1, S2 normal. No murmur or gallop heard. CHEST EXAMINATION: Lungs are clear to auscultation and precussion. No chest wall tenderness is noted on palpation or with deep breathing. ABDOMEN: Soft, nontender. Bowel sounds are heard. No organomegaly noted. EXTREMITIES: 2+ peripheral pulses with no evidence of peripheral edema and no calf tenderness noted. NEUROLOGIC patient is awake, alert and oriented ?-3. . - Labs CBC & Chem 7: 01/02/18 00:44 01/02/18 00:44 Labs: Abnormal Lab Results - Last 24 Hours (Table) 01/02/18 Range/Units 06:12 Triglycerides 259 H (<150) mg/dL HDL Cholesterol 32 L (40-60) mg/dL Assessment and Plan Plan: Assessment and plan #1 symptoms of chest pain in patient with recent stenting of the mid RCA, mid LAD and PLV branch of the RCA #2 hypertension #3 hyperlipidemia #4 GERD #5 nicotine dependence Plan From cardiology's perspective, patient has been advised to undergo repeat cardiac catheterization. This will be performed tomorrow by Dr. Talavera. DNP note has been reviewed, I agree with a documented findings and plan of care. Patient was seen and examined.
[2018-01-04] MEDS: TICAGRELOR 90 MG TAB PO SCH (06:50)
[2018-01-04] MEDS: LISINOPRIL 20 MG TAB PO SCH (06:50)
[2018-01-04] MEDS: METOPROLOL TARTRATE 25 MG TAB PO SCH (06:50)
[2018-01-04] MEDS: amLODIPine 10 MG TAB PO SCH (06:50)
[2018-01-04] MEDS ORDERED: ASPIRIN 325 MG TAB PO ONE (08:00)
[2018-01-04] MEDS ORDERED: ATORVASTATIN 80 MG TAB PO ONE (08:00)
[2018-01-04] MEDS ORDERED: SODIUM CHLORIDE 0.9% 1,000 ML IV ONE (09:58)
[2018-01-04] MEDS ORDERED: MIDAZOLAM 2 MG/2 ML VIAL IVP ONE (10:13)
[2018-01-04] MEDS ORDERED: LIDOCAINE 1% INJ 10MG/ML (20 ML MDV) SQ ONE (10:14)
[2018-01-04] MEDS ORDERED: HEPARIN SODIUM 1,000 UN/ML (10ML VL) IVPB ONE (10:18)
[2018-01-04] MEDS ORDERED: IOPAMIDOL-370 125ML BTL INJ ONE (10:26)
[2018-01-04] MEDS ORDERED: RX INFO: IV CONTRAST WAS GIVEN 1 EACH MISC MISCELLANE PRN (10:35)
[2018-01-04] MEDS ORDERED: SODIUM CHLORIDE 0.9% 1,000 ML IV SCH (10:45)
[2018-01-04 10:49] VITALS: TEMP 96
--- NOTE | 2018-01-04 11:04 | CC ---
CARDIAC CATHETERIZATION REPORT DATE OF SERVICE: January 04, 2018. PERFORMING PHYSICIAN: Demarcus Everett MD, customer support professional. PROCEDURE PERFORMED: 1. Selective right and left coronary angiogram. 2. Left heart catheterization. INDICATION: This is a pleasant 52-year-old gentleman with known history of coronary artery disease and prior stenting of the RCA and LAD, presented to the hospital complaining of chest discomfort and mildly abnormal cardiac enzymes. The patient was seen by Dr. Lora who recommended proceeding with a heart catheterization. APPROACH: Right radial artery. COMPLICATION: None. LEVEL OF SEDATION: Moderate with sedation length of 17 minutes. PROCEDURE DESCRIPTION: After obtaining an informed consent, the patient was brought to cardiac recyclable materials sorter. The right radial artery was cannulated using micropuncture technique, the micropuncture wire passed easily then I placed a 5-Turkish sheath in the right radial artery. After that, I did give the patient 2 mg of verapamil IA and 10,000 units of heparin IV. Selective right and left coronary angiogram was performed using JR4 and JL3.5 catheters. Left heart catheterization was performed using 5-Turkish pigtail catheter. The procedure was completed without any complication. SELECTIVE CORONARY ANGIOGRAM: 1. Right coronary artery is a large caliber vessel and is a dominant vessel. The stent in the mid RCA is patent. The RCA distally bifurcates into PDA and PLV branches. The PDA branch is normal. The PLV branch is stented and the stent is patent. 2. The left main is angiographically normal. It bifurcates into the circumflex and left anterior descending artery. 3. The left circumflex is a large caliber vessel. It is a nondominant vessel. The proximal circumflex is normal and gives rise into first OM branch which appeared to be normal. The mid circumflex is normal and gives rise to a second and third OM branches appeared to be angiographically normal and the circumflex continued after that as a small-caliber vessel in the AV groove. 4. The LAD: The proximal LAD appeared to be normal. The mid LAD is stented and the stent is patent. The mid LAD gives rise into a large diagonal branch which appeared to be angiographically normal. It distally appeared to be normal as well. HEMODYNAMICS: The left ventricular end-diastolic pressure was 12 mmHg and no gradient was identified across the aortic valve. CONCLUSION: 1. Patent stent in the mid right coronary artery and patent stent in the PLV branch of the right coronary artery. 2. Normal left circumflex coronary artery. 3. Patent stent in the mid left anterior descending artery. POSTPROCEDURE MANAGEMENT: Medical treatment and follow up with the patient. JAIDEN / DANIIN: [id number] /
--- NOTE | 2018-01-04 11:09 | LTR ---
DATE OF SERVICE: January 02, 2018 RE: Tae Hahn Dear Dr. Nunn; Tae Hahn presented to the hospital with chest discomfort and was found to have mildly abnormal cardiac enzymes consistent with acute non-STEMI. He underwent a heart catheterization, was found to have patent stent in the right coronary artery and patent stent in the left anterior descending artery. Maximized medical treatment is advised. I want to thank you for allowing us to participate in his care and please do not hesitate to call if you have any question or concern. Sincerely, MD JAIDEN Rey / DANIIN: [id number] /
--- NOTE | 2018-01-04 13:10 | P.DS ---
Providers Date of admission: 01/02/18 02:04 Attending physician: Bora Parks Consults: 01/02/18 02:04 Consult Physician Urgent Consulting Provider: [facility] Reason/Comments: chest pain, Skaf patient Do you want consulting provider notified?: Yes, Notify in am Primary care physician: [facility] Course: 50-year-old with history of coronary disease and previous stenting to LAD, mid RCA and PLv came in with exertional chest pain. Was evaluated cardiology and wanted wanted him 1 more day continues to have some exertional chest discomfort cardiology may often going for cardiac catheterization tomorrow. Troponin seronegative please refer to cardiology dictation for EKG findings 01/04/2018 Patient underwent cardiac catheterization which did not show any significant stentable atherosclerotic coronary vascular disease and patient's previous stents are patent area at patient symptoms are believed to be secondary to anxiety disorder and the cardiology is recommending Lexapro which showed will be provided to the patient and patient will continue rest of his medications will be discharged today. PHYSICAL EXAMINATION: GENERAL: The patient is alert and oriented x3, not in any acute distress. Well developed, well nourished. HEENT: Pupils are round and equally reacting to light. EOMI. No scleral icterus. No conjunctival pallor. Normocephalic, atraumatic. No pharyngeal erythema. No thyromegaly. CARDIOVASCULAR: S1 and S2 present. No murmurs, rubs, or gallops. PULMONARY: Chest is clear to auscultation, no wheezing or crackles. ABDOMEN: Soft, nontender, nondistended, normoactive bowel sounds. No palpable organomegaly. MUSCULOSKELETAL: No joint swelling or deformity. EXTREMITIES: No cyanosis, clubbing, or pedal edema. NEUROLOGICAL: Gross neurological examination did not reveal any focal deficits. SKIN: No rashes. For other chronic medical problems hospitalization course please refer to my dictation of progress note from yesterday Plan - Discharge Summary New Discharge Prescriptions: New Escitalopram Oxalate [Lexapro] 10 mg PO DAILY #30 tab No Action Aspirin 81 mg PO DAILY Lisinopril 40 mg PO DAILY amLODIPine [Norvasc] 10 mg PO DAILY Atorvastatin [Lipitor] 40 mg PO DAILY Ticagrelor [Brilinta] 90 mg PO BID Metoprolol Tartrate [Lopressor] 25 mg PO BID #60 tab Nitroglycerin Sl Tabs [Nitrostat] 0.4 mg SUBLINGUAL Q5M PRN #30 tab PRN Reason: Chest Pain Discharge Medication List Aspirin 81 mg PO DAILY 11/17/13 [History] Lisinopril 40 mg PO DAILY 05/25/16 [History] Atorvastatin [Lipitor] 40 mg PO DAILY 12/27/17 [History] Ticagrelor [Brilinta] 90 mg PO BID 12/27/17 [History] amLODIPine [Norvasc] 10 mg PO DAILY 12/27/17 [History] Metoprolol Tartrate [Lopressor] 25 mg PO BID #60 tab 12/28/17 [Rx] Nitroglycerin Sl Tabs [Nitrostat] 0.4 mg SUBLINGUAL Q5M PRN #30 tab 12/28/17 [Rx ] Escitalopram Oxalate [Lexapro] 10 mg PO DAILY #30 tab 01/04/18 [Rx] Follow up Appointment(s)/Referral(s): Demarcus Everett MD [STAFF PHYSICIAN] - 01/11/18 9:45 am (Wednesday) Meli Goldstein NPC [Nurse Practitioner] - 01/10/18 2:00 pm (Wednesday) Patient Instructions/Handouts: *[facility] - After Heart Catheterization - Delivery Sales Worker Instructions, [facility] (By mouth), Left Heart Catheterization (DC) Discharge Disposition: HOME SELF-CARE
[2018-01-04 14:27] VITALS: BP 114/61; PULSE 52
== END 2018-01-04 16:44 | disposition home or self-care (01) ==
LOC: EC 00:22 → 3SCARD 02:04
PROVIDERS: ADMIT Internal Medicine; ATTEND Internal Medicine
DX: F41.9 Anxiety disorder, unspecified (principal); R00.1 Bradycardia, unspecified; F17.210 Nicotine dependence, cigarettes, uncomplicated; I25.10 Atherosclerotic heart disease of native coronary artery without angina pectoris; E78.5 Hyperlipidemia, unspecified; I10 Essential (primary) hypertension; K21.9 Gastro-esophageal reflux disease without esophagitis; Z80.42 Family history of malignant neoplasm of prostate; Z79.82 Long term (current) use of aspirin; Z79.899 Other long term (current) drug therapy; Z79.02 Long term (current) use of antithrombotics/antiplatelets; Z82.49 Family history of ischemic heart disease and other diseases of the circulatory system; Z95.5 Presence of coronary angioplasty implant and graft; Z71.6 Tobacco abuse counseling
CPT/HCPCS: 96361 ×2; 96374; 99285; 36415; 93005; 93458; 83880; 80061; 80053; 82550; 82553; 83735; 84484; 85025; 85610; 85730; 71046; G0378 ×3; C1769; C1894; J2250; J2001; J1885; J1644; Q9967

== ENCOUNTER 2018-02-09 14:25 | Emergency (ER) | payer BC ==
[2018-02-09 14:33] VITALS: TEMP 97.5
[2018-02-09] MEDS ORDERED: NITROGLYCERIN OINT 1 INCH/GM PACKET TOPICAL STA (15:13)
[2018-02-09] MEDS ORDERED: ASPIRIN 81 MG PO STA (15:13)
--- NOTE | 2018-02-09 15:25 | ED ---
General Adult HPI - General Chief complaint: Chest Pain Stated complaint: chest pain, cardiac rehab sent Time Seen by Provider: 02/09/18 14:35 Source: patient, RN notes reviewed Mode of arrival: wheelchair Limitations: no limitations - History of Present Illness Initial comments: Patient is a pleasant 62-year-old male presenting to the emergency Department with complaints of chest discomfort. Patient has had several episodes of chest discomfort over the past couple of weeks. Patient did have 3 stents placed around 2 months ago. Patient did have a recent trip to [place]. Patient states he has had these similar symptoms multiple times previously. Patient states he has had multiple evaluations since stent placement and it came up negative. Patient has had 3 cardiac catheterizations in the past 2-3 months. Last cardiac catheterization was reported as normal. No associated dyspnea, nausea, or diaphoresis. Discomfort is pressure in the left chest without radiation. - Related Data Home Medications Medication Instructions Recorded Confirmed Aspirin 81 mg PO DAILY 11/17/13 02/09/18 Lisinopril 40 mg PO DAILY 05/25/16 02/09/18 Atorvastatin [Lipitor] 40 mg PO DAILY 12/27/17 02/09/18 Ticagrelor [Brilinta] 90 mg PO BID 12/27/17 02/09/18 amLODIPine [Norvasc] 10 mg PO DAILY 12/27/17 02/09/18 Previous Rx's Medication Instructions Recorded Metoprolol Tartrate [Lopressor] 25 mg PO BID #60 tab 12/28/17 Nitroglycerin Sl Tabs [Nitrostat] 0.4 mg SUBLINGUAL Q5M PRN #30 tab 12/28/17 Allergies Allergy/AdvReac Type Severity Reaction Status Date / Time No Known Allergies Allergy Verified 02/09/18 14:43 Review of Systems ROS Statement: Those systems with pertinent positive or pertinent negative responses have been documented in the HPI. ROS Other: All systems not noted in ROS Statement are negative. Constitutional: Denies: fever Eyes: Denies: eye pain ENT: Denies: ear pain Respiratory: Denies: cough, dyspnea Cardiovascular: Reports: as per HPI, chest pain Endocrine: Denies: fatigue Gastrointestinal: Denies: abdominal pain Genitourinary: Denies: dysuria Musculoskeletal: Denies: back pain Skin: Denies: rash Neurological: Denies: weakness Past Medical History Past Medical History: Coronary Artery Disease (CAD), GERD/Reflux, Hyperlipidemia , Hypertension History of Any Multi-Drug Resistant Organisms: None Reported Past Surgical History: Heart Catheterization With Stent Additional Past Surgical History / Comment(s): pt stated had surgery on R thumb for tendons, colonoscopy. Past Anesthesia/Blood Transfusion Reactions: No Reported Reaction Date of Last Stent Placement:: 12/07/17 [place] in [place] Past Psychological History: No Psychological Hx Reported Smoking Status: Current every day smoker Past Alcohol Use History: Occasional Past Drug Use History: None Reported - Past Family History Mother Family Medical History: Hypertension Additional Family Medical History / Comment(s): Paternal grandfather of a RI at the age of 75yrs. Father Family Medical History: Cancer, Hypertension Additional Family Medical History / Comment(s): Prostate Cancer General Exam Limitations: no limitations General appearance: alert, in no apparent distress Head exam: Present: atraumatic Eye exam: Present: normal appearance Neck exam: Present: normal inspection Respiratory exam: Present: normal lung sounds bilaterally. Absent: chest wall tenderness Cardiovascular Exam: Present: regular rate, normal rhythm Expanded Peripheral pulses: 2+: Radial (R), Radial (L), Dorsalis Pedis (R), Dorsalis Pedis (L) GI/Abdominal exam: Present: soft. Absent: tenderness Extremities exam: Present: normal inspection. Absent: pedal edema, calf tenderness Neurological exam: Present: alert Psychiatric exam: Present: normal affect, normal mood Skin exam: Present: normal color Course Vital Signs 02/09/18 14:31 Temperature 97.5 F L Pulse Rate 61 Respiratory 16 Rate Blood Pressure 117/79 O2 Sat by Pulse 98 Oximetry EKG Findings - EKG Comments: EKG Findings:: Normal sinus rhythm 60. NJ 194. QRS 90. QT 434. QTC 434. Normal axis. Normal QRS. Nonspecific T waves. Medical Decision Making - Medical Decision Making Patient reevaluated and resting comfortably in bed. Patient symptom-free at this time. Patient updated on results. Patient updated and recommendation for admission for monitoring and further evaluation and cardiology evaluation. Patient is made aware that causes of chest discomfort have not been completely ruled out at this time. This does include heart attack and risk for heart attack in the near future as well as other causes of chest discomfort. Despite this patient refuses admission and will leave AGAINST MEDICAL ADVICE. Patient does demonstrate medical decision making. - Lab Data Result diagrams: 02/09/18 15:30 12/19/18 15:30 Lab Results 02/09/18 02/09/18 02/09/18 Range/Units 15:30 15:30 15:30 WBC 10.4 (3.8-10.6) k/uL RBC 4.38 (4.30-5.90) m/uL Hgb 13.7 (13.0-17.5) gm/dL Hct 41.1 (39.0-53.0) % MCV 93.9 (80.0-100.0) fL MCH 31.4 (25.0-35.0) pg MCHC 33.4 (31.0-37.0) g/dL RDW 13.2 (11.5-15.5) % Plt Count 315 (150-450) k/uL Neutrophils % 72 % Lymphocytes % 16 % Monocytes % 7 % Eosinophils % 3 % Basophils % 0 % Neutrophils # 7.5 (1.3-7.7) k/uL Lymphocytes # 1.6 (1.0-4.8) k/uL Monocytes # 0.7 (0-1.0) k/uL Eosinophils # 0.4 (0-0.7) k/uL Basophils # 0.0 (0-0.2) k/uL PT (9.0-12.0) sec INR (<1.2) APTT (22.0-30.0) sec D-Dimer (<0.60) mg/L FEU Sodium 139 (137-145) mmol/L Potassium 4.8 (3.5-5.1) mmol/L Chloride 111 H (98-107) mmol/L Carbon Dioxide 21 L (22-30) mmol/L Anion Gap 7 mmol/L BUN 15 (9-20) mg/dL Creatinine 0.91 (0.66-1.25) mg/dL Est GFR (CKD-EPI)AfAm >90 (>60 ml/min/1.73 sqM) Est GFR (CKD-EPI)NonAf >90 (>60 ml/min/1.73 sqM) Glucose 109 H (74-99) mg/dL Calcium 9.1 (8.4-10.2) mg/dL Magnesium 2.2 (1.6-2.3) mg/dL Total Bilirubin 0.8 (0.2-1.3) mg/dL AST 38 (17-59) U/L ALT 71 (21-72) U/L Alkaline Phosphatase 60 (38-126) U/L Total Creatine Kinase 65 (55-170) U/L CK-MB (CK-2) 0.5 (0.0-2.4) ng/mL CK-MB (CK-2) Rel Index 0.8 Troponin I <0.012 (0.000-0.034) ng/mL Total Protein 6.8 (6.3-8.2) g/dL Albumin 3.7 (3.5-5.0) g/dL 02/09/18 Range/Units 15:30 WBC (3.8-10.6) k/uL RBC (4.30-5.90) m/uL Hgb (13.0-17.5) gm/dL Hct (39.0-53.0) % MCV (80.0-100.0) fL MCH (25.0-35.0) pg MCHC (31.0-37.0) g/dL RDW (11.5-15.5) % Plt Count (150-450) k/uL Neutrophils % % Lymphocytes % % Monocytes % % Eosinophils % % Basophils % % Neutrophils # (1.3-7.7) k/uL Lymphocytes # (1.0-4.8) k/uL Monocytes # (0-1.0) k/uL Eosinophils # (0-0.7) k/uL Basophils # (0-0.2) k/uL PT 10.0 (9.0-12.0) sec INR 0.9 (<1.2) APTT 26.5 (22.0-30.0) sec D-Dimer 0.44 (<0.60) mg/L FEU Sodium (137-145) mmol/L Potassium (3.5-5.1) mmol/L Chloride (98-107) mmol/L Carbon Dioxide (22-30) mmol/L Anion Gap mmol/L BUN (9-20) mg/dL Creatinine (0.66-1.25) mg/dL Est GFR (CKD-EPI)AfAm (>60 ml/min/1.73 sqM) Est GFR (CKD-EPI)NonAf (>60 ml/min/1.73 sqM) Glucose (74-99) mg/dL Calcium (8.4-10.2) mg/dL Magnesium (1.6-2.3) mg/dL Total Bilirubin (0.2-1.3) mg/dL AST (17-59) U/L ALT (21-72) U/L Alkaline Phosphatase (38-126) U/L Total Creatine Kinase (55-170) U/L CK-MB (CK-2) (0.0-2.4) ng/mL CK-MB (CK-2) Rel Index Troponin I (0.000-0.034) ng/mL Total Protein (6.3-8.2) g/dL Albumin (3.5-5.0) g/dL - Radiology Data Radiology results: image reviewed (Chest x-ray shows no acute process) Disposition Clinical Impression: Chest pain Disposition: Left Against Medical Advice Instructions: Chest Pain (ED) Additional Instructions: Please follow-up with your primary care physician and slasher tender helper in the next couple of days for recheck. Return for chest pain, worsening or changing symptoms, or any other concerns. You are leaving AGAINST MEDICAL ADVICE. Is patient prescribed a controlled substance at d/c from ED?: No Referrals: Ariadne Nunn III, MD [Primary Care Provider] - 1-2 days Time of Disposition: 17:22
[2018-02-09 16:07] LABS: ALT 71 U/L (21-72); AST 38 U/L (17-59); Albumin 3.7 g/dL (3.5-5.0); Alkaline Phosphatase 60 U/L (38-126); Anion Gap 7 mmol/L; Blood Urea Nitrogen 15 mg/dL (9-20); Calcium 9.1 mg/dL (8.4-10.2); Carbon Dioxide 21 mmol/L (22-30); Chloride 111 mmol/L (98-107); Glucose 109 mg/dL (74-99); Magnesium 2.2 mg/dL (1.6-2.3); Potassium 4.8 mmol/L (3.5-5.1); Sodium 139 mmol/L (137-145); Total Bilirubin 0.8 mg/dL (0.2-1.3); Total Protein 6.8 g/dL (6.3-8.2)
--- NOTE | 2018-02-09 16:08 | XR ---
EXAMINATION TYPE: XR chest 2V DATE OF EXAM: 02/09/2018 COMPARISON: 01/02/2018 HISTORY: Chest pain TECHNIQUE: Frontal and lateral views of the chest are obtained. FINDINGS: There is no focal air space opacity, pleural effusion, or pneumothorax seen. The cardiac silhouette size is within normal limits. The osseous structures are intact. Mild multilevel degener ative changes of the spine are seen. IMPRESSION: No acute cardiopulmonary process.
[2018-02-09 16:14] LABS: D-Dimer 0.44 mg/L FEU (<0.60); INR 0.9 (<1.2); Partial Thromboplastin Time 26.5 sec (22.0-30.0)
[2018-02-09 16:40] LABS: Creatine Kinase 65 U/L (55-170)
[2018-02-09 16:53] LABS: Creatine Kinase MB 0.5 ng/mL (0.0-2.4); Troponin I <0.012 ng/mL (0.000-0.034)
[2018-02-09 17:06] LABS: Basophils % (A) 0 %; Eosinophils # (A) 0.4 k/uL (0-0.7); Eosinophils % (A) 3 %; HCT 41.1 % (39.0-53.0); HGB 13.7 gm/dL (13.0-17.5); Lymphocytes # (A) 1.6 k/uL (1.0-4.8); Lymphocytes % (A) 16 %; MCH 31.4 pg (25.0-35.0); MCHC 33.4 g/dL (31.0-37.0); MCV 93.9 fL (80.0-100.0); Monocytes # (A) 0.7 k/uL (0-1.0); Monocytes % (A) 7 %; Neutrophils # (A) 7.5 k/uL (1.3-7.7); Neutrophils % (A) 72 %; Platelet Count 315 k/uL (150-450); RBC 4.38 m/uL (4.30-5.90); RDW 13.2 % (11.5-15.5); WBC 10.4 k/uL (3.8-10.6)
[2018-02-09 17:56] VITALS: BP 123/76; PULSE 52; RESP 22
== END 2018-02-09 17:45 | disposition left against medical advice (07) ==
LOC: EC 14:25
DX: R07.89 Other chest pain (principal); Z53.29 Procedure and treatment not carried out because of patient's decision for other reasons; I25.10 Atherosclerotic heart disease of native coronary artery without angina pectoris; K21.9 Gastro-esophageal reflux disease without esophagitis; E78.5 Hyperlipidemia, unspecified; I10 Essential (primary) hypertension; F17.200 Nicotine dependence, unspecified, uncomplicated; Z79.82 Long term (current) use of aspirin; Z79.899 Other long term (current) drug therapy; Z95.1 Presence of aortocoronary bypass graft
CPT/HCPCS: 36415; 71046; 80053; 82550; 82553; 83735; 84484; 85025; 85379; 85610; 85730; 93005; 99285

== ENCOUNTER 2018-04-03 01:48 | Emergency (ER) | payer BC ==
--- NOTE | 2018-04-03 02:03 | ED ---
Chest Pain HPI - General Chief Complaint: Chest Pain Stated Complaint: Chest Pain Time Seen by Provider: 04/03/18 02:02 Source: patient Mode of arrival: ambulatory Limitations: no limitations - History of Present Illness Initial Comments: This patient is a 53-year-old man who presents with complaint that for the past few days she has been having some intermittent left-sided chest pains. He states it is usually sharp pain. I it has not been exertional, it can come on at rest as well. He has not noted worsening or relieving factors. The patient states that he did have a total of 3 stents placed over the past 3-4 months. However he did not have an acute DE. Patient states that despite having stents she has had intermittent pains. 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 Patient denies any anginal symptoms. MD Complaint: chest pain -: days(s) Onset: during rest Pain Location: left chest Pain Radiation: none Severity: moderate Quality: aching Consistency: constant Improves With: nothing Worsens With: nothing - Related Data Home Medications Medication Instructions Recorded Confirmed Aspirin 81 mg PO DAILY 11/17/13 02/09/18 Lisinopril 40 mg PO DAILY 05/25/16 02/09/18 Atorvastatin [Lipitor] 40 mg PO DAILY 12/27/17 02/09/18 Ticagrelor [Brilinta] 90 mg PO BID 12/27/17 02/09/18 amLODIPine [Norvasc] 10 mg PO DAILY 12/27/17 02/09/18 Previous Rx's Medication Instructions Recorded Metoprolol Tartrate [Lopressor] 25 mg PO BID #60 tab 12/28/17 Nitroglycerin Sl Tabs [Nitrostat] 0.4 mg SUBLINGUAL Q5M PRN #30 tab 12/28/17 Allergies Allergy/AdvReac Type Severity Reaction Status Date / Time No Known Allergies Allergy Verified 04/03/18 01:51 Review of Systems ROS Statement: Those systems with pertinent positive or pertinent negative responses have been documented in the HPI. ROS Other: All systems not noted in ROS Statement are negative. Constitutional: Denies: fever Respiratory: Denies: cough, dyspnea, wheezes Cardiovascular: Reports: chest pain. Denies: dyspnea on exertion, orthopnea, edema, syncope Gastrointestinal: Denies: abdominal pain, nausea, vomiting Genitourinary: Denies: dysuria, hematuria Musculoskeletal: Denies: back pain Skin: Denies: rash Neurological: Denies: headache, weakness, numbness EKG Findings - EKG Results: EKG: interpreted by ANGELA, sinus rhythm, normal axis, normal QRS, normal ST/T EKG shows: bradycardia (Rate 53 bpm) Past Medical History Past Medical History: Coronary Artery Disease (CAD), GERD/Reflux, Hyperlipidemia , Hypertension History of Any Multi-Drug Resistant Organisms: None Reported Past Surgical History: Heart Catheterization With Stent Additional Past Surgical History / Comment(s): pt stated had surgery on R thumb for tendons, colonoscopy. Past Anesthesia/Blood Transfusion Reactions: No Reported Reaction Date of Last Stent Placement:: 12/07/17 GB in [place] Past Psychological History: No Psychological Hx Reported Smoking Status: Current every day smoker Past Alcohol Use History: Occasional Past Drug Use History: None Reported - Past Family History Mother Family Medical History: Hypertension Additional Family Medical History / Comment(s): Paternal grandfather of a DE at the age of 75yrs. Father Family Medical History: Cancer, Hypertension Additional Family Medical History / Comment(s): Prostate Cancer General Exam Limitations: no limitations General appearance: alert, in no apparent distress Head exam: Present: atraumatic Eye exam: Present: normal appearance. Absent: scleral icterus, conjunctival injection Neck exam: Present: normal inspection, full ROM Respiratory exam: Present: normal lung sounds bilaterally. Absent: respiratory distress, wheezes, rales, rhonchi, stridor Cardiovascular Exam: Present: regular rate, normal rhythm, normal heart sounds. Absent: systolic murmur, diastolic murmur, rubs, gallop GI/Abdominal exam: Present: soft. Absent: distended, tenderness, guarding, rebound, rigid, mass Extremities exam: Present: normal inspection, normal capillary refill. Absent: pedal edema, calf tenderness Back exam: Absent: CVA tenderness (R), CVA tenderness (L) Neurological exam: Present: alert Skin exam: Present: warm, dry, intact, normal color. Absent: rash Course Vital Signs 04/03/18 04/03/18 04/03/18 01:49 02:00 03:00 Temperature 98.4 F 98.4 F Pulse Rate 58 L 53 L 53 L Respiratory 20 17 18 Rate Blood Pressure 114/78 109/78 118/76 O2 Sat by Pulse 98 96 97 Oximetry Disposition Clinical Impression: Chest pain Disposition: HOME SELF-CARE Condition: Good Instructions (If sedation given, give patient instructions): Chest Pain (ED) Is patient prescribed a controlled substance at d/c from ED?: No Referrals: Ariadne Nunn III, MD [Primary Care Provider] - 1-2 days
--- NOTE | 2018-04-03 02:33 | XR ---
EXAM: XR Chest, 2 Views CLINICAL HISTORY: Chest pain TECHNIQUE: Frontal and lateral views of the chest. COMPARISON: Chest x-ray dated 02/09/2018 FINDINGS: Lungs: Unremarkable. No consolidation. Pleural space: Unremarkable. No pneumothorax. Heart: Unremarkable. No cardiomegaly. Mediastinum: Unremarkable. Bones/joints: Unremarkable. IMPRESSION: Normal chest x-rays.
[2018-04-03 03:13] LABS: Basophils # (A) 0.1 k/uL (0-0.2); Basophils % (A) 1 %; Eosinophils # (A) 0.1 k/uL (0-0.7); Eosinophils % (A) 1 %; HCT 46.7 % (39.0-53.0); HGB 15.2 gm/dL (13.0-17.5); Lymphocytes # (A) 2.6 k/uL (1.0-4.8); Lymphocytes % (A) 24 %; MCH 31.2 pg (25.0-35.0); MCHC 32.5 g/dL (31.0-37.0); MCV 95.9 fL (80.0-100.0); Mean Platelet Volume 6.7; Monocytes # (A) 0.9 k/uL (0-1.0); Monocytes % (A) 8 %; Neutrophils # (A) 7.1 k/uL (1.3-7.7); Neutrophils % (A) 64 %; Platelet Count 294 k/uL (150-450); RBC 4.87 m/uL (4.30-5.90); RDW 13.6 % (11.5-15.5); WBC 11.1 k/uL (3.8-10.6)
[2018-04-03 03:22] LABS: ALT 71 U/L (21-72); AST 53 U/L (17-59); Albumin 4.1 g/dL (3.5-5.0); Alkaline Phosphatase 87 U/L (38-126); Amylase 61 U/L (30-110); Anion Gap 8 mmol/L; Blood Urea Nitrogen 15 mg/dL (9-20); Calcium 9.6 mg/dL (8.4-10.2); Carbon Dioxide 23 mmol/L (22-30); Chloride 109 mmol/L (98-107); Glucose 101 mg/dL (74-99); Lipase 124 U/L (23-300); Magnesium 2.4 mg/dL (1.6-2.3); Potassium 4.7 mmol/L (3.5-5.1); Sodium 140 mmol/L (137-145); Total Protein 7.2 g/dL (6.3-8.2)
[2018-04-03 03:28] VITALS: RESP 18
[2018-04-03 03:33] LABS: Creatine Kinase 219 U/L (55-170)
[2018-04-03 03:47] LABS: Creatine Kinase MB 1.4 ng/mL (0.0-2.4); Troponin I <0.012 ng/mL (0.000-0.034)
[2018-04-03 04:11] LABS: D-Dimer 0.36 mg/L FEU (<0.60); INR 0.9 (<1.2); Prothrombin Time 9.9 sec (9.0-12.0)
[2018-04-03 04:29] LABS: Partial Thromboplastin Time 26.3 sec (22.0-30.0)
[2018-04-03 04:30] VITALS: BP 121/73; PULSE 55; TEMP 98
== END 2018-04-03 04:27 | disposition home or self-care (01) ==
LOC: EC 01:48
DX: R07.9 Chest pain, unspecified (principal); I25.10 Atherosclerotic heart disease of native coronary artery without angina pectoris; E78.5 Hyperlipidemia, unspecified; I10 Essential (primary) hypertension; F17.200 Nicotine dependence, unspecified, uncomplicated; Z79.82 Long term (current) use of aspirin; Z79.899 Other long term (current) drug therapy; Z95.5 Presence of coronary angioplasty implant and graft
CPT/HCPCS: 36415; 71046; 80053; 82150; 82550; 82553; 83690; 83735; 84484; 85025; 85379; 85610; 85730; 99285

== ENCOUNTER 2018-06-12 02:01 | Observation (INO) | payer BC ==
[2018-06-12] MEDS ORDERED: SODIUM CHLORIDE 0.9% 1,000 ML IV STA (02:27)
[2018-06-12] MEDS ORDERED: ASPIRIN 81 MG PO STA (02:27)
--- NOTE | 2018-06-12 02:35 | ED ---
Chest Pain HPI - General Chief Complaint: Chest Pain Stated Complaint: Chest Pain Time Seen by Provider: 06/12/18 02:09 Source: patient Mode of arrival: ambulatory Limitations: no limitations - History of Present Illness Initial Comments: Tae Garvey is a 53-year-old male with a known history of coronary artery disease status post stenting in November 2017 who presents the emergency department today for evaluation of sudden onset of chest pain. Patient reports around midnight he was laying in bed when he began to have chest pain and shortness of breath which persisted and prompted him to come the ER for evaluation. Patient does have a history of hypertension hyperlipidemia and he is still smoking cigarettes. Patient reports he has been absolutely compliant with all of his medications including [place] test Lopressor his statin for hypertension. Patient described the chest pain as a left-sided pressure with associated shortness of breath. Upon arrival to the emergency department despite laying in bed patient began feeling that he was going to pass out. - Related Data Home Medications Medication Instructions Recorded Confirmed Aspirin 81 mg PO DAILY 11/17/13 02/09/18 Lisinopril 40 mg PO DAILY 05/25/16 02/09/18 Atorvastatin [Lipitor] 40 mg PO DAILY 12/27/17 02/09/18 Ticagrelor [Brilinta] 90 mg PO BID 12/27/17 02/09/18 amLODIPine [Norvasc] 10 mg PO DAILY 12/27/17 02/09/18 Previous Rx's Medication Instructions Recorded Metoprolol Tartrate [Lopressor] 25 mg PO BID #60 tab 12/28/17 Nitroglycerin Sl Tabs [Nitrostat] 0.4 mg SUBLINGUAL Q5M PRN #30 tab 12/28/17 Allergies Allergy/AdvReac Type Severity Reaction Status Date / Time No Known Allergies Allergy Verified 04/03/18 01:51 Review of Systems ROS Statement: Those systems with pertinent positive or pertinent negative responses have been documented in the HPI. ROS Other: All systems not noted in ROS Statement are negative. EKG Findings - EKG Comments: EKG Findings:: EKG was obtained at 2:12 AM, rate is 58 rhythm is sinus bradycardia, there is a normal axis there are normal intervals, MN 186, QRS 94, QTC is 414 there is no acute ST elevations or depressions there is no evidence of acute ischemia or infarction. Past Medical History Past Medical History: Coronary Artery Disease (CAD), GERD/Reflux, Hyperlipidemia, Hypertension History of Any Multi-Drug Resistant Organisms: None Reported Past Surgical History: Heart Catheterization With Stent Additional Past Surgical History / Comment(s): pt stated had surgery on R thumb for tendons, colonoscopy. Past Anesthesia/Blood Transfusion Reactions: No Reported Reaction Date of Last Stent Placement:: 12/07/17 GB in [place] Past Psychological History: No Psychological Hx Reported Smoking Status: Current every day smoker Past Alcohol Use History: Occasional Past Drug Use History: None Reported - Past Family History Mother Family Medical History: Hypertension Additional Family Medical History / Comment(s): Paternal grandfather of a MA at the age of 75yrs. Father Family Medical History: Cancer, Hypertension Additional Family Medical History / Comment(s): Prostate Cancer General Exam - General Exam Comments Initial Comments: Physical Exam GENERAL: Patient is well-developed and well-nourished, appears uncomfortable, villarreal, diaphoretic HENT: Normocephalic, Atraumatic. EYES: PERRL, EOMI PULMONARY: Unlabored respirations. CARDIOVASCULAR: There is a regular rate and rhythm without any murmurs gallops or rubs. Radial pulses strong and equal bilaterally ABDOMEN: Soft and nontender with normal bowel sounds. Bruise on abdomen - patient reports this is due to injury while building an ou tdoor grill SKIN: Bruises on right arm and abdomen : Deferred NEUROLOGIC: Patient is alert and oriented x3. Moving all extremities spontaneously MUSCULOSKELETAL: Normal extremities with adequate strength and full range of motion. No lower extremity swelling or edema. No calf tenderness. PSYCHIATRIC: Normal psychiatric evaluation. Limitations: no limitations Limitations: no limitations Course Vital Signs 06/12/18 06/12/18 06/12/18 02:04 02:16 03:26 Temperature 97.8 F Pulse Rate 66 56 L 53 L Respiratory 20 17 15 Rate Blood Pressure 148/89 140/81 126/63 O2 Sat by Pulse 98 97 98 Oximetry Chest Pain MDM - MDM The patient was seen and evaluated history was obtained from the patient next line patient with a known cardiac history multiple risk factors still smoking bruising with chest pain that was sudden in onset Initial EKG is nonischemic vital signs are stable however patient laying in bed reporting feeling like he's going to pass out Patient does appear unwell and uncomfortable Labs were unremarkable however given the patient's high risk for cardiac etiology of chest pain Or and without a bolus was ordered Patient admitted to the hospital for further evaluation by cardiology for chest pain Critical Care Time Critical Care Time: Yes Total Critical Care Time: 30 Critical Care Time: Critical Care Critical care time was exclusive of separately billable procedures and treating other patients and teaching time. Critical care was necessary to treat or prevent imminent or life-threatening deterioration. Critical care was time spent personally by me on the following activities: development of treatment plan with patient or surrogate, discussions with consultants, discussions with primary provider, evaluation of patient's response to treatment, examination of patient, obtaining history from patient or surrogate, ordering and performing treatments and interventions, ordering and review of laboratory studies, ordering and review of radiographic studies, pulse oximetry, re-evaluation of patient's condition and review of old charts. Disposition Clinical Impression: Chest pain, Angina pectoris Disposition: ADMITTED IP TO THIS HOSP
[2018-06-12 02:51] LABS: Basophils # (A) 0.1 k/uL (0-0.2); Basophils % (A) 1 %; Eosinophils # (A) 0.2 k/uL (0-0.7); Eosinophils % (A) 2 %; HCT 40.9 % (39.0-53.0); HGB 13.8 gm/dL (13.0-17.5); Lymphocytes # (A) 2.9 k/uL (1.0-4.8); Lymphocytes % (A) 30 %; MCH 31.4 pg (25.0-35.0); MCHC 33.8 g/dL (31.0-37.0); MCV 92.9 fL (80.0-100.0); Mean Platelet Volume 7.1; Monocytes # (A) 0.8 k/uL (0-1.0); Monocytes % (A) 8 %; Neutrophils # (A) 5.3 k/uL (1.3-7.7); Neutrophils % (A) 56 %; Platelet Count 270 k/uL (150-450); RDW 13.2 % (11.5-15.5); WBC 9.5 k/uL (3.8-10.6)
[2018-06-12 02:53] LABS: ALT 87 U/L (21-72); AST 47 U/L (17-59); Alkaline Phosphatase 108 U/L (38-126); Anion Gap 9 mmol/L; Blood Urea Nitrogen 21 mg/dL (9-20); Calcium 9.5 mg/dL (8.4-10.2); Carbon Dioxide 24 mmol/L (22-30); Chloride 106 mmol/L (98-107); Glucose 132 mg/dL (74-99); Magnesium 2.2 mg/dL (1.6-2.3); Potassium 3.8 mmol/L (3.5-5.1); Sodium 139 mmol/L (137-145); Total Bilirubin 0.4 mg/dL (0.2-1.3); Total Protein 6.8 g/dL (6.3-8.2)
[2018-06-12 02:54] LABS: INR 0.9 (<1.2); Partial Thromboplastin Time 27.6 sec (22.0-30.0); Prothrombin Time 9.6 sec (9.0-12.0)
[2018-06-12 02:55] LABS: Glucose,Whole Blood 157 mg/dL (75-99)
--- NOTE | 2018-06-12 03:04 | XR ---
EXAM: XR Chest, 2 Views CLINICAL HISTORY: ITS.REASON XR Reason: Chest Pain TECHNIQUE: Frontal and lateral views of the chest. COMPARISON: 04/03/18. FINDINGS: Lungs: Mild lower lung opacities, possible atelectasis or developing infiltrate. No consolidation. Pleural space: Unremarkable. No pneumothorax. Heart: Unremarkable. Mediastinum: Unremarkable. Bones/joints: No acute fracture. IMPRESSION: Mild lower lung opacities, possible atelectasis or developing infiltrate. No consolidation.
[2018-06-12] MEDS ORDERED: NITROGLYCERIN SL TABS 0.4 MG TAB SUBLINGUAL PRN (03:37)
[2018-06-12] MEDS ORDERED: HEPARIN SOD,PORK IN 0.45% NACL 25,000 UNIT in 0.45% NACL 1 250ML.BAG IV SCH (03:45)
[2018-06-12] MEDS ORDERED: METOPROLOL TARTRATE 25 MG TAB PO SCH (09:00)
[2018-06-12] MEDS ORDERED: LISINOPRIL 20 MG TAB PO SCH (09:00)
[2018-06-12] MEDS ORDERED: ATORVASTATIN 40 MG TAB PO SCH (09:00)
[2018-06-12] MEDS ORDERED: TICAGRELOR 90 MG TAB PO SCH (09:00)
[2018-06-12] MEDS ORDERED: amLODIPine 10 MG TAB PO SCH (09:00)
[2018-06-12 09:13] LABS: Mean Platelet Volume 7.3; Platelet Count 270 k/uL (150-450)
[2018-06-12 09:15] VITALS: BP 134/78; PULSE 53; RESP 18; TEMP 97.6
--- NOTE | 2018-06-12 12:38 | CONS ---
CONSULTATION CHIEF COMPLAINT: Chest pain. HISTORY OF PRESENT ILLNESS: Tae is a 53-year-old gentleman with history of coronary artery disease, status post multivessel angioplasty, who presented to hospital complaining of chest pain. The patient states that he had several beers yesterday, went to bed, felt somewhat uncomfortable and dizzy and short of breath, came to the hospital where he is admitted with unstable angina. The patient did not have any chest pain. His EKG did not reveal ischemic changes. The first set of troponin is negative. The patient has known coronary artery disease and has had prior angioplasty. The last cardiac catheterization on him was in December of 2017 at which time he had a patent stent within the mid RCA and the PLV branch of the right coronary artery and a patent stent within the LAD. The circumflex coronary artery was normal. The patient's current admission does not seem to be related to angina. I will obtain further troponins and if they are negative, stop the heparin and schedule him for a stress test. If the stress test is negative, he will be discharged home. PAST MEDICAL HISTORY: Significant for coronary artery disease, status post angioplasty, hypertension, dyslipidemia. CURRENT MEDICATIONS: Include Lipitor 40 daily, Norvasc 10 daily, Brilinta 90 b.i.d., Lopressor 25 b.i.d., aspirin and nitroglycerine. ALLERGIES: There are no known drug allergies. FAMILY HISTORY: Negative for premature coronary artery disease. SOCIAL HISTORY: Negative for smoking, EtOH abuse, or drug abuse. REVIEW OF SYSTEMS: HEENT is unremarkable. Cardiac as described above. Respiratory negative. GI negative. GENITOURINARY: Negative. ALLERGY/IMMUNOLOGY negative. Skin negative. Musculoskeletal: Significant for arthritis. Psychosocial: Negative. Endocrine: Negative. Hematological negative. Derm negative. Constitutional negative. Oncological negative. Rest of the systems review is not relevant. EXAM: Patient is comfortable at rest. Heart rate is 50 beats per minute. Blood pressure is 123/74, respiratory rate is 18, O2 sat is 95% on room air. There is no jugular venous distention. Carotid upstroke is normal. There is no bruit. Chest exam reveals good air entry bilaterally. Heart exam reveals first and second heart sounds. No gallop. No murmur. No rub. Abdomen is soft, nontender. Exam of extremities did not reveal edema. Peripheral pulses are felt. LABS: Show a hemoglobin of 13.8, platelet count is 270. Potassium is 3.8. Creatinine is 0.96, AST is 37, ALT is elevated at 87. First set of troponin is negative. ASSESSMENT: 1. Precordial chest pain. 2. Coronary artery disease, status post multivessel angioplasty. PLAN: Patient's chest discomfort is atypical and I am going to obtain another troponin, if that is negative, stop the heparin and schedule him for a stress test tomorrow. MMODL / IJN: [id number] /
[2018-06-13] MEDS ORDERED: ASPIRIN 325 MG TAB PO SCH (09:00)
--- NOTE | 2018-07-03 09:19 | P.DS ---
Providers Date of admission: 06/12/18 03:37 Expected date of discharge: 07/12/18 Attending physician: Pj Waldron Consults: 06/12/18 03:37 Consult Physician Urgent Consulting Provider: [facility] Consult Reason/Comments: chest pain hx CAD Do you want consulting provider notified?: Yes, Notify in am Primary care physician: Ariadne Nunn [facility] Course: Patient left AGAINST MEDICAL ADVICE before being seen by our service Plan - Discharge Summary New Discharge Prescriptions: No Action Aspirin 81 mg PO DAILY Lisinopril 40 mg PO DAILY amLODIPine [Norvasc] 10 mg PO HS Atorvastatin [Lipitor] 40 mg PO DAILY Ticagrelor [Brilinta] 90 mg PO BID Metoprolol Tartrate [Lopressor] 25 mg PO BID #60 tab Nitroglycerin Sl Tabs [Nitrostat] 0.4 mg SUBLINGUAL Q5M PRN #30 tab PRN Reason: Chest Pain Discharge Medication List Aspirin 81 mg PO DAILY 11/17/13 [History] Lisinopril 40 mg PO DAILY 05/25/16 [History] Atorvastatin [Lipitor] 40 mg PO DAILY 12/27/17 [History] Ticagrelor [Brilinta] 90 mg PO BID 12/27/17 [History] amLODIPine [Norvasc] 10 mg PO HS 12/27/17 [History] Metoprolol Tartrate [Lopressor] 25 mg PO BID #60 tab 12/28/17 [Rx] Nitroglycerin Sl Tabs [Nitrostat] 0.4 mg SUBLINGUAL Q5M PRN #30 tab 12/28/17 [Rx] Follow up Appointment(s)/Referral(s): Ariadne Nunn III, MD [Primary Care Provider] - 1-2 days Discharge Disposition: Left Against Medical Advice
== END 2018-06-12 10:27 | disposition left against medical advice (07) ==
LOC: EC 02:01 → 1SOBS 03:37
PROVIDERS: ADMIT Hospitalist; ATTEND Hospitalist
DX: R07.2 Precordial pain (principal); R06.02 Shortness of breath; I25.110 Atherosclerotic heart disease of native coronary artery with unstable angina pectoris; I10 Essential (primary) hypertension; E78.5 Hyperlipidemia, unspecified; K21.9 Gastro-esophageal reflux disease without esophagitis; R42 Dizziness and giddiness; F17.210 Nicotine dependence, cigarettes, uncomplicated; Z95.5 Presence of coronary angioplasty implant and graft; Z79.82 Long term (current) use of aspirin; Z79.02 Long term (current) use of antithrombotics/antiplatelets; Z79.899 Other long term (current) drug therapy; Z82.49 Family history of ischemic heart disease and other diseases of the circulatory system; Z80.42 Family history of malignant neoplasm of prostate; Z53.21 Procedure and treatment not carried out due to patient leaving prior to being seen by health care provider
CPT/HCPCS: 96361; 96365; 99291; 36415; 93005; 83880; 80053; 83735; 84484; 85025; 85049; 85610; 85730; 71046; G0378; J1644

== ENCOUNTER 2018-09-03 04:46 | Observation (INO) | payer BC ==
[2018-09-03] MEDS ORDERED: SODIUM CHLORIDE 0.9% 1,000 ML IV STA (04:55)
[2018-09-03] MEDS ORDERED: ASPIRIN 81 MG PO STA (04:55)
[2018-09-03 05:14] LABS: Basophils # (A) 0.1 k/uL (0-0.2); Basophils % (A) 1 %; Eosinophils # (A) 0.2 k/uL (0-0.7); Eosinophils % (A) 2 %; HGB 13.5 gm/dL (13.0-17.5); Lymphocytes # (A) 2.9 k/uL (1.0-4.8); Lymphocytes % (A) 33 %; MCH 31.1 pg (25.0-35.0); MCHC 32.9 g/dL (31.0-37.0); MCV 94.5 fL (80.0-100.0); Mean Platelet Volume 7.2; Monocytes # (A) 0.7 k/uL (0-1.0); Monocytes % (A) 7 %; Neutrophils # (A) 4.9 k/uL (1.3-7.7); Neutrophils % (A) 55 %; Platelet Count 233 k/uL (150-450); RBC 4.34 m/uL (4.30-5.90); RDW 13.5 % (11.5-15.5); WBC 8.9 k/uL (3.8-10.6)
[2018-09-03 05:23] LABS: INR 0.9 (<1.2); Partial Thromboplastin Time 26.9 sec (22.0-30.0); Prothrombin Time 9.7 sec (9.0-12.0)
[2018-09-03 05:26] LABS: ALT 45 U/L (21-72); AST 26 U/L (17-59); African American GFR (CKD) >90 (>60 ml/min/1.73 sqM); Albumin 4.1 g/dL (3.5-5.0); Alkaline Phosphatase 85 U/L (38-126); Anion Gap 9 mmol/L; Blood Urea Nitrogen 17 mg/dL (9-20); Carbon Dioxide 22 mmol/L (22-30); Chloride 111 mmol/L (98-107); Glucose 112 mg/dL (74-99); Magnesium 2.3 mg/dL (1.6-2.3); Potassium 3.9 mmol/L (3.5-5.1); Sodium 142 mmol/L (137-145); Total Bilirubin 0.3 mg/dL (0.2-1.3); Total Protein 6.8 g/dL (6.3-8.2)
--- NOTE | 2018-09-03 05:27 | XR ---
EXAM: XR Chest, 2 Views CLINICAL HISTORY: ITS.REASON XR Reason: Chest Pain TECHNIQUE: Frontal and lateral views of the chest. COMPARISON: 06/12/18 IMPRESSION: Normal heart size. No consolidation or pleural effusion.
--- NOTE | 2018-09-03 06:05 | ED ---
Chest Pain HPI - General Chief Complaint: Chest Pain Stated Complaint: Chest Pain Time Seen by Provider: 09/03/18 04:54 Source: patient Mode of arrival: wheelchair Limitations: no limitations - History of Present Illness Initial Comments: He is a 53-year-old gentleman with past medical history of known coronary artery disease for which she had cardiac stenting in November and December. Patient reports that for the past few days he's been having chest pain. He describes it as pain in his heart and feeling like his heart is going to explode. Patient reports becoming unbearable and he has to get some answers. - Related Data Home Medications Medication Instructions Recorded Confirmed Aspirin 81 mg PO DAILY 11/17/13 06/12/18 Lisinopril 40 mg PO DAILY 05/25/16 06/12/18 Atorvastatin [Lipitor] 40 mg PO DAILY 12/27/17 06/12/18 Ticagrelor [Brilinta] 90 mg PO BID 12/27/17 06/12/18 amLODIPine [Norvasc] 10 mg PO HS 12/27/17 06/12/18 Previous Rx's Medication Instructions Recorded Metoprolol Tartrate [Lopressor] 25 mg PO BID #60 tab 12/28/17 Nitroglycerin Sl Tabs [Nitrostat] 0.4 mg SUBLINGUAL Q5M PRN #30 tab 12/28/17 Allergies Allergy/AdvReac Type Severity Reaction Status Date / Time No Known Allergies Allergy Verified 09/03/18 04:53 Review of Systems ROS Statement: Those systems with pertinent positive or pertinent negative responses have been documented in the HPI. ROS Other: All systems not noted in ROS Statement are negative. EKG Findings - EKG Comments: EKG Findings:: EKG was obtained for complaint of chest pain, EKG obtained at 4:59 AM, rate is 49 rhythm is sinus bradycardia there is normal axis are normal intervals are no acute ST elevations or depressions no evidence of acute i schemia or infarction. When compared to EKG obtained in May of this year patient is significant change in morphology, patient continues to have sinus bradycardia with first-degree AV block. Past Medical History Past Medical History: Coronary Artery Disease (CAD), GERD/Reflux, Hyperlipidemia, Hypertension History of Any Multi-Drug Resistant Organisms: None Reported Past Surgical History: Heart Catheterization With Stent Additional Past Surgical History / Comment(s): pt stated had surgery on R thumb for tendons, colonoscopy. 3 stents Past Anesthesia/Blood Transfusion Reactions: No Reported Reaction Date of Last Stent Placement:: 12/07/17 GB in [place] Past Psychological History: No Psychological Hx Reported Smoking Status: Former smoker Past Alcohol Use History: Rare Past Drug Use History: None Reported - Past Family History Mother Family Medical History: Hypertension Additional Family Medical History / Comment(s): Paternal grandfather of a NM at the age of 75yrs. Father Family Medical History: Cancer, Hypertension Additional Family Medical History / Comment(s): Prostate Cancer General Exam - General Exam Comments Initial Comments: Physical Exam GENERAL: Patient is well-developed and well-nourished. Patient is nontoxic and well- hydrated and is in no distress. HENT: Normocephalic, Atraumatic. EYES: PERRL, EOMI PULMONARY: Unlabored respirations. No audible rales rhonchi or wheezing was noted. CARDIOVASCULAR: There is a regular rate and rhythm without any murmurs gallops or rubs. ABDOMEN: Soft and nontender with normal bowel sounds. SKIN: Skin is clear with no lesions or rashes and otherwise unremarkable. : Deferred NEUROLOGIC: Patient is alert and oriented x3. Moving all extremities spontaneously MUSCULOSKELETAL: Normal extremities with adequate strength and full range of motion. No lower extremity swelling or edema. No calf tenderness. PSYCHIATRIC: Agitated Limitations: no limitations Course Vital Signs 09/03/18 09/03/18 04:50 04:55 Temperature 97.7 F Pulse Rate 54 L Pulse Rate [ 50 L [employer]st ] Respiratory 18 Rate Blood Pressure 121/76 O2 Sat by Pulse 97 Oximetry Chest Pain [facility] The patient was seen and evaluated history is obtained from patient and sign EKG is nonischemic Labs were unremarkable Results were discussed with patient who states he is not comfortable going home at this time. Patient states this chest pain is too bothersome and he feels that he needs to be evaluated by cardiology. Patient states he will not leave this hospital until he has a cardiac cath. I advised the patient that he can be evaluated by the medicine group and we will consult cardiology they will make the decision Sally he needs a cardiac cath. Disposition Clinical Impression: Chest pain Disposition: ADMITTED IP TO THIS HOSP Condition: Stable Is patient prescribed a controlled substance at d/c from ED?: No Referrals: Ariadne Nunn III, MD [Primary Care Provider] - 1-2 days
[2018-09-03] MEDS: NITROGLYCERIN SL TABS 0.4 MG TAB SUBLINGUAL PRN ×3 (07:22→10:28)
[2018-09-03] MEDS ORDERED: NITROGLYCERIN SL TABS 0.4 MG TAB SUBLINGUAL PRN (12:29)
[2018-09-03] MEDS ORDERED: PANTOPRAZOLE 40 MG TABLET PO STA (12:31)
[2018-09-03] MEDS ORDERED: SODIUM CHLORIDE 0.9% 1,000 ML in EMPTY BAG 1 BAG IV ONE (12:32)
[2018-09-03] MEDS ORDERED: ALPRAZolam 0.5 MG TAB PO PRN (12:32)
[2018-09-03] MEDS ORDERED: ALPRAZolam 0.25 MG TAB PO PRN (12:32)
--- NOTE | 2018-09-03 12:43 | P.CRDCN ---
History of Present Illness Consult date: 09/03/18 Consult reason: chest pain (History of coronary artery disease) Chief complaint: Chest pain History of present illness: This is a pleasant 52-year-old male patient of Dr. Everett with history of CAD, prior stenting of the mid RCA and mid LAD performed recently in [place]. Subsequently, he underwent cardiac catheterization that showed patent stents in both the mid RCA and mid LAD with severe disease involving the PLV branch the RCA. He underwent successful stenting of the PLV branch of the RCA. Was discharged home. Patient states that he has had ongoing chest pain intermittently for the past 6 months and seems to be worsening. He states occasionally he has left arm numbness but not real radiation of pain. The pain as a tightness in the left side of his chest. It occurs worse at nighttime according to his significant other and at rest and activity. He is able to ride a bike, hold the garden etc. without experiencing chest pain and then develops this at rest. He does complain of shortness of breath for the past 2-3 days as if he cannot get a deep breath. He denies any diaphoresis with the episodes. He denies any nausea or vomiting. He does have a cough that is nonproductive. He recently quit smoking 5 days ago. He was a smoker one and half packs per day for 40 years. He denies any marijuana, street drug or alcohol use. He has been taking his medications as directed. Patient presented to the [facility] emergency center for evaluation. His initial troponin was negative. EKG was a sinus rhythm at 49. His beta chris was held initially. Chest pain was improved after nitroglycerin and oxygen. The patient was placed on the observation unit. Significant other also relates that patient takes Tums frequently. EKG reveals sinus mechanism, sinus bradycardia at 49. Echocardiogram reveals EF of 55-60% Laboratory studies: CBC unremarkable. Chloride 111, blood sugar 112, creatinine 0.84, liver function tests within normal limits, INR 0.9. Troponin negative on the initial draw. ProBNP 89. Chest x-ray shows mild lower lung opacities possible atelectasis or developing infiltrate. Review Of Systems: Constitutional: No fever, no chills, no night sweats. No weight change. No weakness, fatigue or lethargy. No daytime sleepiness. EENT: No headache. No blurred vision or double vision, no loss of vision. No loss of Hearing, no ringing in the ears, no dizziness. No nasal drainage or congestion. No epistaxis. No sore throat. Lungs: Reports shortness of breath, reports cough, no sputum production. No wheezing. Cardiovascular: Reports chest pain, no lower extremity edema. No palpitations. No paroxysmal nocturnal dyspnea. No orthopnea. No lightheadedness or dizziness. No syncopal episodes. Abdominal: No abdominal pain. No nausea, vomiting. No diarrhea. No constipation. No bloody or tarry stools.. No loss of appetite. Genitourinary: No dysuria, increased frequency, urgency. No urinary retention. Musculoskeletal: No myalgias. No muscle weakness, no gait dysfunction, no frequent falls. No back pain. No neck pain. Integumentary: No wounds, no lesions. No rash or pruritus. No unusual bruising. No change in hair or nails. Neurologic: No aphasia. No facial droop. No change in mentation. No head injury. No headache. No paralysis. No paresthesia. Psychiatric: No depression. No anxiety. No mood swings. Endocrine: No abnormal blood sugars. No weight change. No excessive sweating or thirst. No cold intolerance. No weight change. Gen: This is a [ ] HEENT: Head is atraumatic, normocephalic. Pupils equal, round. Sclerae is a nicteric. NECK: Supple. No JVD. No lymphadenopathy. No thyromegaly. LUNGS: Clear to auscultation. No wheezes or rhonchi. No intercostal retractions. HEART: Regular rate and rhythm. No murmur. ABDOMEN: Soft. Bowel sounds are present. No masses. No tenderness. EXTREMITIES: No pedal edema. No calf tenderness. Dorsalis pedis +2 bilaterally. NEUROLOGICAL: Patient is awake, alert and oriented x3. Cranial nerves 2 through 12 are grossly intact. Assessment: Chest pain at rest especially at nighttime along with shortness of breath. Initial normal troponin and no EKG changes. Rule out coronary artery disease as underlying cause versus GERD History of coronary artery disease status post 3 stents total. Hypertension Hyperlipidemia Gastroesophageal reflux disease Nicotine dependence, quit 5 days ago Plan: Heart catheterization will be scheduled for tomorrow with Dr. Everett. Lipitor will be increased to 80 mg daily Metoprolol will be resumed at a lower dose of 12.5 mg twice daily Resume Brilinta 90 mg twice daily, aspirin 81 mg daily Start Protonix 40 mg daily at bedtime EKG to be obtained if patient experiences episodes of chest pain Smoking cessation Further recommendations to follow based upon clinical course. Thank you kindly for this consultation. Nurse practitioner note has been reviewed, I agree with documented findings and plan of care. Patient was seen and examined. Past Medical History Past Medical History: Coronary Artery Disease (CAD), GERD/Reflux, Hyperlipidemia, Hypertension History of Any Multi-Drug Resistant Organisms: None Reported Past Surgical History: Heart Catheterization With Stent Additional Past Surgical History / Comment(s): pt stated had surgery on R thumb for tendons, colonoscopy,x1 stent with Dr. Everett 12/27/17 and x2 stents 12/07/17 in [place] Past Anesthesia/Blood Transfusion Reactions: No Reported Reaction Date of Last Stent Placement:: 12/07/17 GB in [place] Past Psychological History: No Psychological Hx Reported Additional Psychological History / Comment(s): Pt resides with his SO, He is independent. 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 Smoking Status: Former smoker Past Alcohol Use History: Rare Additional Past Alcohol Use History / Comment(s): Pt started smoking in 1977 and is a ppd smoker. Past Drug Use History: None Reported - Past Family History Mother Family Medical History: Hypertension Additional Family Medical History / Comment(s): Paternal grandfather of a [place] at the age of 75yrs. Father Family Medical History: Cancer, Hypertension Additional Family Medical History / Comment(s): Prostate Cancer Medications and Allergies Home Medications Medication Instructions Recorded Confirmed Type Aspirin 81 mg PO DAILY 11/17/13 09/03/18 History Lisinopril 40 mg PO DAILY 05/25/16 09/03/18 History Atorvastatin [Lipitor] 40 mg PO DAILY 12/27/17 09/03/18 History Ticagrelor [Brilinta] 90 mg PO BID 12/27/17 09/03/18 History amLODIPine [Norvasc] 10 mg PO HS 12/27/17 09/03/18 History Metoprolol Tartrate [Lopressor] 25 mg PO BID #60 tab 12/28/17 09/03/18 Rx Nitroglycerin Sl Tabs [Nitrostat] 0.4 mg SUBLINGUAL Q5M PRN #30 tab 12/28/17 09/03/18 Rx Allergies Allergy/AdvReac Type Severity Reaction Status Date / Time No Known Allergies Allergy Verified 09/03/18 08:35 Physical Exam Vitals: Vital Signs Temp Pulse Pulse Pulse Resp BP BP 09/03/18 11:56 97.7 F 45 L 16 130/76 09/03/18 08:00 09/03/18 07:30 44 L 50 L 18 09/03/18 06:54 97.5 F L 50 L 18 135/77 09/03/18 04:55 50 L 09/03/18 04:50 97.7 F 54 L 18 121/76 Pulse Ox 09/03/18 11:56 99 09/03/18 08:00 99 09/03/18 07:30 09/03/18 06:54 96 09/03/18 04:55 09/03/18 04:50 97 Intake and Output 09/02/18 09/03/18 09/03/18 22:59 06:59 14:59 Intake Total 0 Balance 0 Intake: Oral 0 Other: Voiding Method Toilet Weight 103.419 kg Results 09/03/18 04:59 09/03/18 04:59 Cardiac Enzymes 09/03/18 09/03/18 Range/Units 04:59 04:59 AST 26 (17-59) U/L Troponin I <0.012 (0.000-0.034) ng/mL Coagulation 09/03/18 Range/Units 04:59 PT 9.7 (9.0-12.0) sec APTT 26.9 (22.0-30.0) sec CBC 09/03/18 Range/Units 04:59 WBC 8.9 (3.8-10.6) k/uL RBC 4.34 (4.30-5.90) m/uL Hgb 13.5 (13.0-17.5) gm/dL Hct 41.0 (39.0-53.0) % Plt Count 233 (150-450) k/uL Comprehensive Metabolic Panel 09/03/18 Range/Units 04:59 Sodium 142 (137-145) mmol/L Potassium 3.9 (3.5-5.1) mmol/L Chloride 111 H (98-107) mmol/L Carbon Dioxide 22 (22-30) mmol/L BUN 17 (9-20) mg/dL Creatinine 0.84 (0.66-1.25) mg/dL Glucose 112 H (74-99) mg/dL Calcium 9.0 (8.4-10.2) mg/dL AST 26 (17-59) U/L ALT 45 (21-72) U/L Alkaline Phosphatase 85 (38-126) U/L Total Protein 6.8 (6.3-8.2) g/dL Albumin 4.1 (3.5-5.0) g/dL Current Medications Generic Name Dose Route Start Last Admin Trade Name Freq PRN Reason Stop Dose Admin Aspirin 325 mg 09/04/18 09:00 Aspirin PO DAILY KEITH Nitroglycerin 0.4 mg 09/03/18 06:08 09/03/18 10:28 Nitrostat SUBLINGUAL 0.4 mg Q5M PRN Administration Chest Pain Intake and Output 09/02/18 09/03/18 09/03/18 22:59 06:59 14:59 Intake Total 0 Balance 0 Intake: Oral 0 Other: Voiding Method Toilet Weight 103.419 kg 09/03/18 04:59 09/03/18 04:59
[2018-09-03] MEDS ORDERED: ASPIRIN 81 MG PO SCH (12:45)
[2018-09-03] MEDS: LISINOPRIL 20 MG TAB PO SCH (12:56)
[2018-09-03] MEDS: ATORVASTATIN 80 MG TAB PO SCH (12:56)
[2018-09-03] MEDS: TICAGRELOR 90 MG TAB PO SCH ×2 (12:56→20:20)
--- NOTE | 2018-09-03 14:33 | P.HPIM ---
History of Present Illness Patient is a very pleasant 53-year-old gentleman with known history of coronary artery disease with previous stents to mid RCA and mid LAD came in with the complaints of typical chest pain including exertional chest pain has been going on for 6 months last few days has been worse and patient continues to smoke but smoking 5 days ago pressure-like sensation left side of the chest moderate amount of chest pain no associated diaphoresis has shortness of breath associated with that numbness in the left hand. Patient any fever chills chest pain is nonpleuritic not as. Patient had a normal EKG and normal troponins mild sinus bradycardia. But still he is significantly concerning for typical chest pain with his coronary artery disease history and smoking history patient the will be needing a cardiac catheterization which will be done tomorrow. Patient's pain is similar to when he had heart attacks Review of Systems REVIEW OF SYSTEMS: CONSTITUTIONAL: No fever, no malaise, no fatigue. HEENT: No recent visual problems or hearing problems. Denied any sore throat. CARDIOVASCULAR: As mentioned in HPI PULMONARY: No shortness of breath, no cough, no hemoptysis. GASTROINTESTINAL: No diarrhea, no nausea, no vomiting, no abdominal pain. NEUROLOGICAL: No headaches, no weakness, no numbness. HEMATOLOGICAL: Denies any bleeding or petechiae. GENITOURINARY: Denies any burning micturition, frequency, or urgency. MUSCULOSKELETAL/RHEUMATOLOGICAL: Denies any joint pain, swelling, or any muscle pain. ENDOCRINE: Denies any polyuria or polydipsia. The rest of the 14-point review of systems is negative. Past Medical History Past Medical History: Coronary Artery Disease (CAD), GERD/Reflux, Hyperlipidemia, Hypertension History of Any Multi-Drug Resistant Organisms: None Reported Past Surgical History: Heart Catheterization With Stent Additional Past Surgical History / Comment(s): pt stated had surgery on R thumb for tendons, colonoscopy,x1 stent with Dr. Everett 12/27/17 and x2 stents 12/07/17 in [place] Past Anesthesia/Blood Transfusion Reactions: No Reported Reaction Date of Last Stent Placement:: 12/07/17 GB in [place] Past Psychological History: No Psychological Hx Reported Additional Psychological History / Comment(s): Pt resides with his SO, He is independent. 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 Smoking Status: Former smoker Past Alcohol Use History: Rare Additional Past Alcohol Use History / Comment(s): Pt started smoking in 1977 and is a ppd smoker. Past Drug Use History: None Reported - Past Family History Mother Family Medical History: Hypertension Additional Family Medical History / Comment(s): Paternal grandfather of a [place] at the age of 75yrs. Father Family Medical History: Cancer, Hypertension Additional Family Medical History / Comment(s): Prostate Cancer Medications and Allergies Home Medications Medication Instructions Recorded Confirmed Type Aspirin 81 mg PO DAILY 11/17/13 09/03/18 History Lisinopril 40 mg PO DAILY 05/25/16 09/03/18 History Atorvastatin [Lipitor] 40 mg PO DAILY 12/27/17 09/03/18 History Ticagrelor [Brilinta] 90 mg PO BID 12/27/17 09/03/18 History amLODIPine [Norvasc] 10 mg PO HS 12/27/17 09/03/18 History Metoprolol Tartrate [Lopressor] 25 mg PO BID #60 tab 12/28/17 09/03/18 Rx Nitroglycerin Sl Tabs [Nitrostat] 0.4 mg SUBLINGUAL Q5M PRN #30 tab 12/28/17 09/03/18 Rx Allergies Allergy/AdvReac Type Severity Reaction Status Date / Time No Known Allergies Allergy Verified 09/03/18 08:35 Physical Exam Vitals: Vital Signs Temp Pulse Pulse Pulse Resp BP BP 09/03/18 14:13 97.5 F L 52 L 16 125/68 09/03/18 12:00 16 09/03/18 11:56 97.7 F 45 L 16 130/76 09/03/18 08:00 09/03/18 07:30 44 L 50 L 18 09/03/18 06:54 97.5 F L 50 L 18 135/77 09/03/18 04:55 50 L 09/03/18 04:50 97.7 F 54 L 18 121/76 Pulse Ox 09/03/18 14:13 97 09/03/18 12:00 09/03/18 11:56 99 09/03/18 08:00 99 09/03/18 07:30 09/03/18 06:54 96 09/03/18 04:55 09/03/18 04:50 97 Intake and Output 09/02/18 09/03/18 09/03/18 22:59 06:59 14:59 Intake Total 0 Balance 0 Intake: Oral 0 Other: Voiding Method Toilet Weight 103.419 kg PHYSICAL EXAMINATION: GENERAL: The patient is alert and oriented x3, not in any acute distress. Well developed, well nourished. HEENT: Pupils are round and equally reacting to light. EOMI. No scleral icterus. No conjunctival pallor. Normocephalic, atraumatic. No pharyngeal erythema. No thyromegaly. CARDIOVASCULAR: S1 and S2 present. No murmurs, rubs, or gallops. PULMONARY: Chest is clear to auscultation, no wheezing or crackles. ABDOMEN: Soft, nontender, nondistended, normoactive bowel sounds. No palpable organomegaly. MUSCULOSKELETAL: No joint swelling or deformity. EXTREMITIES: No cyanosis, clubbing, or pedal edema. NEUROLOGICAL: Gross neurological examination did not reveal any focal deficits. SKIN: No rashes. Results CBC & Chem 7: 09/03/18 04:59 09/03/18 04:59 Labs: Abnormal Lab Results - Last 24 Hours (Table) 09/03/18 Range/Units 04:59 Chloride 111 H (98-107) mmol/L Glucose 112 H (74-99) mg/dL Thrombosis Risk Factor Assmnt - Choose All That Apply Any of the Below Risk Factors Present?: Yes Other Risk Factors: No Other congenital or acquired thrombophilia - If yes, enter type in comment: No Assessment and Plan Plan: Possible unstable angina typical chest pain symptoms patient will undergo cardiac catheterization will continue with IV heparin beta chris, antiplatelet therapy, statin -Previous history of coronary artery disease Gastroesophageal reflux disease -Hyperlipidemia -Hypertension I refilled mild sinus bradycardia secondary to beta chris and decision regarding discontinuation is on this medication is for cardiology for above-mentioned chronic medical problems patient will be resumed on appropriate home medications
[2018-09-03] MEDS: METOPROLOL TARTRATE 12.5 MG TAB PO SCH (20:20)
[2018-09-03] MEDS ORDERED: PANTOPRAZOLE 40 MG TABLET PO SCH (21:00)
[2018-09-03] MEDS ORDERED: amLODIPine 10 MG TAB PO SCH (21:00)
[2018-09-03] MEDS ORDERED: TICAGRELOR 90 MG TAB PO SCH (21:00)
[2018-09-04] MEDS: LISINOPRIL 20 MG TAB PO SCH (06:13)
[2018-09-04] MEDS: ATORVASTATIN 80 MG TAB PO SCH (06:13)
[2018-09-04] MEDS: METOPROLOL TARTRATE 12.5 MG TAB PO SCH (06:14)
[2018-09-04] MEDS: TICAGRELOR 90 MG TAB PO SCH (06:14)
[2018-09-04 07:32] LABS: African American GFR (CKD) >90 (>60 ml/min/1.73 sqM); Anion Gap 7 mmol/L; Blood Urea Nitrogen 15 mg/dL (9-20); Calcium 8.7 mg/dL (8.4-10.2); Carbon Dioxide 21 mmol/L (22-30); Chloride 113 mmol/L (98-107); Cholesterol 107 mg/dL (<200); Glucose 105 mg/dL (74-99); HDL Cholesterol 36 mg/dL (40-60); LDL Cholesterol,Calculated 52 mg/dL (0-99); Potassium 4.2 mmol/L (3.5-5.1); Sodium 141 mmol/L (137-145); Triglycerides 95 mg/dL (<150)
[2018-09-04] MEDS ORDERED: ASPIRIN 81 MG ONE (07:59)
[2018-09-04] MEDS ORDERED: HEPARIN SODIUM 1,000 UN/ML (10ML VL) ONE (07:59)
[2018-09-04] MEDS ORDERED: VERAPAMIL 2.5 MG/ML 2 ML AMP ONE (07:59)
[2018-09-04] MEDS ORDERED: LIDOCAINE 1% INJ 10MG/ML (20 ML MDV) ONE (07:59)
[2018-09-04] MEDS ORDERED: ASPIRIN 81 MG PO ONE (08:06)
[2018-09-04] MEDS ORDERED: IV FLUID CONTINUATION 1,000 ML IV ONE (08:06)
[2018-09-04 08:14] VITALS: RESP 16; TEMP 97.5
[2018-09-04] MEDS ORDERED: MIDAZOLAM (PF) 2 MG/2 ML VIAL IVP ONE (08:25)
[2018-09-04] MEDS ORDERED: LIDOCAINE 1% INJ 10MG/ML (20 ML MDV) SQ ONE (08:27)
[2018-09-04] MEDS: VERAPAMIL SYRINGE (5 MG/10 ML) INTRAARTER ONE ×2 (08:30→08:38)
[2018-09-04] MEDS ORDERED: HEPARIN SODIUM 1,000 UN/ML (10ML VL) IV ONE (08:31)
[2018-09-04] MEDS ORDERED: IOPAMIDOL-370 125ML BTL INJ ONE (08:37)
[2018-09-04] MEDS ORDERED: RX INFO: IV CONTRAST WAS GIVEN 1 EACH MISC MISCELLANE PRN (08:45)
[2018-09-04] MEDS ORDERED: SODIUM CHLORIDE 0.9% 1,000 ML IV SCH (08:45)
[2018-09-04] MEDS ORDERED: ATORVASTATIN 80 MG TAB PO SCH (09:00)
[2018-09-04] MEDS ORDERED: ASPIRIN 325 MG TAB PO SCH (09:00)
[2018-09-04] MEDS ORDERED: LISINOPRIL 20 MG TAB PO SCH (09:00)
[2018-09-04] MEDS ORDERED: ASPIRIN 81 MG PO SCH ×2 (09:00)
--- NOTE | 2018-09-04 09:04 | CC ---
CARDIAC CATHETERIZATION REPORT DATE OF SERVICE: September 04, 2018 PERFORMING PHYSICIAN: Demarcus Everett MD, cooking teacher. PROCEDURE PERFORMED: 1. Selective right and left coronary angiogram. 2. Left heart catheterization. INDICATION: This is a 53-year-old gentleman with history of coronary artery disease and prior stenting of the right coronary artery as well as left anterior descending artery, presented to the hospital with chest discomfort. The chest discomfort was concerning for angina. Because of that, a heart catheterization was advised. APPROACH: Right radial artery. COMPLICATION: None. LEVEL OF SEDATION: Moderate with sedation length of 15 minutes. PROCEDURE DESCRIPTION: After obtaining an informed consent, the patient was brought to the cardiac chemical laboratory assistant. The right radial artery was cannulated using micropuncture technique, then I placed a 5- Israeli sheath. Subsequently, I gave the patient 2 mg of verapamil IA and 10,000 units of heparin IV. Selective right and left coronary angiogram performed using JR4 and JL3.5 catheters. Left heart catheterization was performed using the JR4 catheter which crossed the aortic valve, then I did pullback across aortic valve. The procedure was completed without any complication. SELECTIVE CORONARY ANGIOGRAM: 1. The right coronary artery is a large caliber vessel. It is a dominant vessel. The RCA is stented in the proximal portion. The stent is patent. Distally has mild disease only and bifurcates into PDA and PLV branches, both appeared to have mild disease only. 2. The left main is angiographically normal. It bifurcates into left circumflex, ramus intermedius, and left anterior descending artery. 3. Left circumflex is a moderate caliber vessel. It is a nondominant vessel. It is angiographically normal. It gives rise into 3 obtuse marginal branches they are all small to medium caliber vessel and appeared to be angiographically normal. 4. The ramus intermedius is a small to medium caliber vessel and seems to be normal as well. 5. The LAD: The proximal LAD appeared to be normal. The mid LAD has mild disease only by the bifurcation of a large diagonal branch which appeared to be normal. The LAD in the mid to distal portion and distally appeared to be normal. HEMODYNAMICS: The left ventricular end-diastolic pressure was 12 mmHg. No significant gradient across aortic valve. CONCLUSION: Patent stents in both the right coronary artery as well as left anterior descending artery. POSTPROCEDURE MANAGEMENT: 1. Medical treatment. 2. Rule out other etiology for the chest pain like reflux disease or so. MMODL / IJN: [id number] /
--- NOTE | 2018-09-04 09:09 | LTR ---
DATE OF SERVICE: 09/04/[address] Nunn: Mr. Tae Hahn presented to the hospital with chest discomfort concerning for angina. He underwent a heart catheterization which revealed patent stents in both the RCA and LAD. I want to thank you for allowing us to participate in his care and please do not hesitate to call if you have any questions or any concerns. Sincerely, JAIDEN / LILIANA: [id number] /
--- NOTE | 2018-09-04 12:36 | P.DS ---
Providers Date of admission: 09/03/18 06:09 Attending physician: Pj Waldron Consults: 09/03/18 06:08 Consult Physician Urgent Consulting Provider: [facility] Consult Reason/Comments: chest pain - hx of CAD Do you want consulting provider notified?: Yes, Notify in am Primary care physician: Ariadne [facility] Course: 53-year-old gentleman with known history of coronary artery disease with previous stents to mid RCA and mid LAD came in with the complaints of typical chest pain including exertional chest pain has been going on for 6 months last few days has been worse and patient continues to smoke but smoking 5 days ago pressure-like sensation left side of the chest moderate amount of chest pain no associated diaphoresis has shortness of breath associated with that numbness in the left hand. Patient any fever chills chest pain is nonpleuritic not as. Patient had a normal EKG and normal troponins mild sinus bradycardia. But still he is significantly concerning for typical chest pain with his coronary artery disease history and smoking history patient the will be needing a cardiac catheterization which will be done tomorrow. Patient's pain is similar to when he had heart attacks. 09/04/2018 Patient underwent cardiac catheterization which did not show any significant atherosclerotic coronary occlusive disease patient is clinically doing well will be discharged today and cardiology believes that patient may have gastroesophageal reflux disease because of which patient is being discharged on Protonix counseling regarding nicotine cessation was provided patient will completely stop smoking. PHYSICAL EXAMINATION: GENERAL: The patient is alert and oriented x3, not in any acute distress. Well developed, well nourished. HEENT: Pupils are round and equally reacting to light. EOMI. No scleral icterus. No conjunctival pallor. Normocephalic, atraumatic. No pharyngeal erythema. No thyromegaly. CARDIOVASCULAR: S1 and S2 present. No murmurs, rubs, or gallops. PULMONARY: Chest is clear to auscultation, no wheezing or crackles. ABDOMEN: Soft, nontender, nondistended, normoactive bowel sounds. No palpable organomegaly. MUSCULOSKELETAL: No joint swelling or deformity. EXTREMITIES: No cyanosis, clubbing, or pedal edema. NEUROLOGICAL: Gross neurological examination did not reveal any focal deficits. SKIN: No rashes. Reason for to my dictation of H&P from yesterday for further details of hospitalization and other medical problems that were addressed. Patient Condition at Discharge: Stable Plan - Discharge Summary Discharge Rx Participant: No New Discharge Prescriptions: New Pantoprazole [Protonix] 40 mg PO HS #30 tablet.dr [place] Aspirin 81 mg PO DAILY Lisinopril 40 mg PO DAILY amLODIPine [Norvasc] 10 mg PO HS Atorvastatin [Lipitor] 40 mg PO DAILY Ticagrelor [Brilinta] 90 mg PO BID Metoprolol Tartrate [Lopressor] 25 mg PO BID #60 tab Nitroglycerin Sl Tabs [Nitrostat] 0.4 mg SUBLINGUAL Q5M PRN #30 tab PRN Reason: Chest Pain Discharge Medication List Aspirin 81 mg PO DAILY 11/17/13 [History] Lisinopril 40 mg PO DAILY 05/25/16 [History] Atorvastatin [Lipitor] 40 mg PO DAILY 12/27/17 [History] Ticagrelor [Brilinta] 90 mg PO BID 12/27/17 [History] amLODIPine [Norvasc] 10 mg PO HS 12/27/17 [History] Metoprolol Tartrate [Lopressor] 25 mg PO BID #60 tab 12/28/17 [Rx] Nitroglycerin Sl Tabs [Nitrostat] 0.4 mg SUBLINGUAL Q5M PRN #30 tab 12/28/17 [Rx] Pantoprazole [Protonix] 40 mg PO HS #30 tablet. 09/04/18 [Rx] Follow up Appointment(s)/Referral(s): Demarcus Everett MD [STAFF PHYSICIAN] - 6 Weeks Ariadne Nunn III, MD [Primary Care Provider] - 1-2 days Discharge Disposition: HOME SELF-CARE
[2018-09-04 14:16] VITALS: BP 128/58; PULSE 56
== END 2018-09-04 14:07 | disposition home or self-care (01) ==
LOC: EC 04:46 → 1SOBS 06:09
PROVIDERS: ADMIT Hospitalist; ATTEND Hospitalist
DX: R07.89 Other chest pain (principal); Z95.5 Presence of coronary angioplasty implant and graft; R06.02 Shortness of breath; R20.0 Anesthesia of skin; R05 Cough; R00.1 Bradycardia, unspecified; I25.110 Atherosclerotic heart disease of native coronary artery with unstable angina pectoris; I25.2 Old myocardial infarction; I10 Essential (primary) hypertension; E78.5 Hyperlipidemia, unspecified; E78.00 Pure hypercholesterolemia, unspecified; T44.7X5A Adverse effect of beta-adrenoreceptor antagonists, initial encounter; Z87.891 Personal history of nicotine dependence; Z79.82 Long term (current) use of aspirin; Z79.899 Other long term (current) drug therapy; Z79.02 Long term (current) use of antithrombotics/antiplatelets; Z82.49 Family history of ischemic heart disease and other diseases of the circulatory system; Z80.42 Family history of malignant neoplasm of prostate
CPT/HCPCS: 96360; 99285; 36415; 93005; 93458; 83880; 80061; 80053; 80048; 83735; 84484; 85025; 85610; 85730; 71046; G0378 ×2; C1769; C1894; J2001; J1644; Q9967; J2250

== ENCOUNTER 2018-10-30 02:27 | Emergency (ER) | payer BC ==
--- NOTE | 2018-10-30 02:42 | ED ---
Chest Pain HPI - General Chief Complaint: Chest Pain Stated Complaint: chest pain Time Seen by Provider: 10/30/18 02:36 Source: patient Mode of arrival: ambulatory Limitations: no limitations - History of Present Illness MD Complaint: chest pain Onset/Timin -: hour(s) Onset: during rest Pain Location: substernal Pain Radiation: none Severity: moderate Quality: tightness Consistency: constant Improves With: nothing Worsens With: nothing Treatments Prior to Arrival: none - Related Data Home Medications Medication Instructions Recorded Confirmed Aspirin 81 mg PO DAILY 11/17/13 10/30/18 Lisinopril 40 mg PO DAILY 05/25/16 10/30/18 Atorvastatin [Lipitor] 40 mg PO DAILY 12/27/17 10/30/18 Ticagrelor [Brilinta] 90 mg PO BID 12/27/17 09/03/18 amLODIPine [Norvasc] 10 mg PO HS 12/27/17 10/30/18 Clopidogrel [Plavix] 75 mg PO DAILY 10/30/18 10/30/18 Previous Rx's Medication Instructions Recorded Metoprolol Tartrate [Lopressor] 25 mg PO BID #60 tab 12/28/17 Nitroglycerin Sl Tabs [Nitrostat] 0.4 mg SUBLINGUAL Q5M PRN #30 tab 12/28/17 Pantoprazole [Protonix] 40 mg PO HS #30 tablet. 09/04/18 Allergies Allergy/AdvReac Type Severity Reaction Status Date / Time No Known Allergies Allergy Verified 09/03/18 08:35 Review of Systems ROS Statement: Those systems with pertinent positive or pertinent negative responses have been documented in the HPI. ROS Other: All systems not noted in ROS Statement are negative. Constitutional: Denies: fever, chills Respiratory: Denies: cough, dyspnea Cardiovascular: Reports: as per HPI, chest pain. Denies: palpitations, edema Gastrointestinal: Denies: abdominal pain, nausea, vomiting, diarrhea Genitourinary: Denies: dysuria, hematuria Musculoskeletal: Denies: back pain Neurological: Denies: headache, weakness, numbness EKG Findings - EKG Results: EKG: interpreted by ANGELA, sinus rhythm (Rate 62 bpm), normal axis, normal QRS, normal ST/T Past Medical History Past Medical History: Coronary Artery Disease (CAD), GERD/Reflux, Hyperlipidemia, Hypertension History of Any Multi-Drug Resistant Organisms: None Reported Past Surgical History: Heart Catheterization With Stent Additional Past Surgical History / Comment(s): pt stated had surgery on R thumb for tendons, colonoscopy,x1 stent with Dr. Everett 12/27/17 and x2 stents 12/07/17 in [place] Past Anesthesia/Blood Transfusion Reactions: No Reported Reaction Date of Last Stent Placement:: 12/07/17 GB in [place] Past Psychological History: No Psychological Hx Reported Smoking Status: Former smoker Past Alcohol Use History: Rare Past Drug Use History: None Reported - Past Family History Mother Family Medical History: Hypertension Additional Family Medical History / Comment(s): Paternal grandfather of a [place] at the age of 75yrs. Father Family Medical History: Cancer, Hypertension Additional Family Medical History / Comment(s): Prostate Cancer General Exam Limitations: no limitations General appearance: alert, in no apparent distress Head exam: Present: atraumatic, normocephalic Eye exam: Present: normal appearance. Absent: scleral icterus, conjunctival injection Neck exam: Present: normal inspection Respiratory exam: Present: normal lung sounds bilaterally. Absent: respiratory distress, wheezes, rales, rhonchi, stridor Cardiovascular Exam: Present: regular rate, normal rhythm, normal heart sounds. Absent: systolic murmur, diastolic murmur, rubs, gallop GI/Abdominal exam: Present: soft. Absent: distended, tenderness, guarding, rebound, rigid, mass Extremities exam: Present: normal inspection, normal capillary refill. Absent: pedal edema, calf tenderness Back exam: Present: normal inspection. Absent: CVA tenderness (R), CVA tenderness (L) Neurological exam: Present: alert Skin exam: Present: warm, dry, intact, normal color. Absent: rash Course Vital Signs 10/30/18 10/30/18 02:28 04:35 Temperature 97.4 F L 98.6 F Pulse Rate 61 78 Respiratory 20 18 Rate Blood Pressure 148/78 145/83 O2 Sat by Pulse 99 100 Oximetry Disposition Clinical Impression: Chest pain Disposition: HOME SELF-CARE Condition: Good Instructions (If sedation given, give patient instructions): Chest Pain (ED) Is patient prescribed a controlled substance at d/c from ED?: No Referrals: Ariadne Nunn III, MD [Primary Care Provider] - 1-2 days
--- NOTE | 2018-10-30 03:10 | XR ---
EXAM: XR Chest, 2 Views CLINICAL HISTORY: Chest Pain TECHNIQUE: Frontal and lateral views of the chest. COMPARISON: 09/20/2018. FINDINGS: Lungs: Lungs are well aerated Pleural space: No pneumothorax Heart: Cardiomediastinal silhouette is unremarkable Mediastinum: See above. Bones/joints: Osteopenia Ribs and thoracic spine are unremarkable IMPRESSION: No active disease, not significant change from the previous study.
[2018-10-30 03:24] LABS: ALT 57 U/L (21-72); AST 34 U/L (17-59); African American GFR (CKD) >90 (>60 ml/min/1.73 sqM); Albumin 4.3 g/dL (3.5-5.0); Alkaline Phosphatase 110 U/L (38-126); Amylase 53 U/L (30-110); Anion Gap 9 mmol/L; Blood Urea Nitrogen 19 mg/dL (9-20); Calcium 9.4 mg/dL (8.4-10.2); Carbon Dioxide 25 mmol/L (22-30); Chloride 107 mmol/L (98-107); Glucose 83 mg/dL (74-99); Magnesium 2.4 mg/dL (1.6-2.3); Potassium 3.9 mmol/L (3.5-5.1); Sodium 141 mmol/L (137-145); Total Bilirubin 0.5 mg/dL (0.2-1.3); Total Protein 7.3 g/dL (6.3-8.2)
[2018-10-30 03:28] LABS: Basophils # (A) 0.1 k/uL (0-0.2); Basophils % (A) 1 %; Eosinophils # (A) 0.2 k/uL (0-0.7); Eosinophils % (A) 2 %; HCT 42.5 % (39.0-53.0); HGB 14.1 gm/dL (13.0-17.5); Lymphocytes % (A) 31 %; MCH 30.5 pg (25.0-35.0); MCHC 33.2 g/dL (31.0-37.0); Mean Platelet Volume 7.3; Monocytes # (A) 0.7 k/uL (0-1.0); Monocytes % (A) 7 %; Neutrophils # (A) 5.4 k/uL (1.3-7.7); Neutrophils % (A) 56 %; Platelet Count 224 k/uL (150-450); RBC 4.62 m/uL (4.30-5.90); RDW 13.1 % (11.5-15.5); WBC 9.6 k/uL (3.8-10.6)
[2018-10-30 04:05] LABS: D-Dimer 0.23 mg/L FEU (<0.60); INR 0.9 (<1.2); Prothrombin Time 9.6 sec (9.0-12.0)
[2018-10-30 04:37] VITALS: BP 145/83; PULSE 78; RESP 18; TEMP 98.6
== END 2018-10-30 04:35 | disposition home or self-care (01) ==
LOC: EC 02:27
DX: R07.2 Precordial pain (principal); I25.10 Atherosclerotic heart disease of native coronary artery without angina pectoris; E78.5 Hyperlipidemia, unspecified; I10 Essential (primary) hypertension; Z95.5 Presence of coronary angioplasty implant and graft; Z82.49 Family history of ischemic heart disease and other diseases of the circulatory system; Z87.891 Personal history of nicotine dependence; Z79.82 Long term (current) use of aspirin; Z79.02 Long term (current) use of antithrombotics/antiplatelets; Z79.899 Other long term (current) drug therapy
CPT/HCPCS: 36415; 71046; 80053; 82150; 83690; 83735; 84484; 85025; 85379; 85610; 85730; 93005; 99285

== ENCOUNTER → 2019-02-03 | Outpatient (CLI) | payer BC ==
[2019-02-03 19:11] LABS: LDL Cholesterol,Calculated 76.4 mg/dL (0.0-131.0); VLDL Calculation 75.6 mg/dL (5.00-40.00)
== END | disposition home or self-care (01) ==
LOC: LABWHC1 13:03
PROVIDERS: ATTEND Nurse Practitioner Adult Health
DX: E78.2 Mixed hyperlipidemia (principal)
CPT/HCPCS: 36415; 80061; 84450; 84460

== ENCOUNTER 2019-05-14 18:25 | Observation (INO) | payer BC ==
[2019-05-14] MEDS ORDERED: SODIUM CHLORIDE 0.9% 1,000 ML IV STA (18:54)
[2019-05-14] MEDS ORDERED: NITROGLYCERIN SL TABS 0.4 MG TAB SUBLINGUAL STA (18:54)
[2019-05-14 19:09] LABS: Basophils % (A) 0 %; Eosinophils # (A) 0.2 k/uL (0-0.7); Eosinophils % (A) 2 %; HCT 40.2 % (39.0-53.0); HGB 13.8 gm/dL (13.0-17.5); Lymphocytes # (A) 1.8 k/uL (1.0-4.8); Lymphocytes % (A) 23 %; MCH 31.8 pg (25.0-35.0); MCHC 34.4 g/dL (31.0-37.0); MCV 92.4 fL (80.0-100.0); Mean Platelet Volume 7.9; Monocytes # (A) 0.6 k/uL (0-1.0); Monocytes % (A) 8 %; Neutrophils # (A) 5.2 k/uL (1.3-7.7); Neutrophils % (A) 65 %; Platelet Count 251 k/uL (150-450); RBC 4.35 m/uL (4.30-5.90); RDW 12.9 % (11.5-15.5)
--- NOTE | 2019-05-14 19:18 | XR ---
EXAMINATION TYPE: XR chest 2V DATE OF EXAM: 05/14/2019 COMPARISON: 10/30/2018 HISTORY: Chest pain TECHNIQUE: 2 views FINDINGS: Heart and mediastinum are normal. Lungs are clear. Diaphragm is normal. Bony thorax appears normal. IMPRESSION: Normal chest. No change.
[2019-05-14 19:20] LABS: ALT 48 U/L (4-49); AST 42 U/L (17-59); African American GFR (CKD) >90 (>60 ml/min/1.73 sqM); Albumin 4.2 g/dL (3.5-5.0); Alkaline Phosphatase 83 U/L (38-126); Anion Gap 6 mmol/L; Blood Urea Nitrogen 18 mg/dL (9-20); Carbon Dioxide 23 mmol/L (22-30); Chloride 110 mmol/L (98-107); Creatine Kinase 116 U/L (55-170); Glucose 127 mg/dL (74-99); Magnesium 2.3 mg/dL (1.6-2.3); Non-African American GFR(CKD) 82 (>60 ml/min/1.73 sqM); Sodium 139 mmol/L (137-145); Total Bilirubin 0.7 mg/dL (0.2-1.3); Total Protein 7.1 g/dL (6.3-8.2)
--- NOTE | 2019-05-14 19:20 | ED ---
Chest Pain HPI - General Chief Complaint: Chest Pain Stated Complaint: chest pain/arm numbness Time Seen by Provider: 05/14/19 18:46 Source: patient, RN notes reviewed Mode of arrival: ambulatory Limitations: no limitations - History of Present Illness Initial Comments: Last cardiac cath evaluation being December 2017 who presents today with complaints of retrosternal chest pain squeezing in nature 7 and 8/10 in severity is with some associated left arm numbness. No nausea vomiting sweats shortness breath fevers chills sweats or other symptoms. He states this is a smell going on for the past week or so he does not use any nitroglycerin. 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 Talavera in this facility. No other modifying factors time no trauma reported MD Complaint: chest pain - Related Data Home Medications Medication Instructions Recorded Confirmed Aspirin 81 mg PO DAILY 11/17/13 10/30/18 Lisinopril 40 mg PO DAILY 05/25/16 10/30/18 Atorvastatin [Lipitor] 40 mg PO DAILY 12/27/17 10/30/18 Ticagrelor [Brilinta] 90 mg PO BID 12/27/17 09/03/18 amLODIPine [Norvasc] 10 mg PO HS 12/27/17 10/30/18 Clopidogrel [Plavix] 75 mg PO DAILY 10/30/18 10/30/18 Previous Rx's Medication Instructions Recorded Metoprolol Tartrate [Lopressor] 25 mg PO BID #60 tab 12/28/17 Nitroglycerin Sl Tabs [Nitrostat] 0.4 mg SUBLINGUAL Q5M PRN #30 tab 12/28/17 Pantoprazole [Protonix] 40 mg PO HS #30 tablet. 09/04/18 Allergies Allergy/AdvReac Type Severity Reaction Status Date / Time No Known Allergies Allergy Verified 05/14/19 18:30 Review of Systems ROS Statement: Those systems with pertinent positive or pertinent negative responses have been documented in the HPI. ROS Other: All systems not noted in ROS Statement are negative. EKG Findings - EKG Results: EKG: interpreted by ANGELA, sinus rhythm (Sinus rhythm with a first-degree AV block rate was 60. Interval 222 QRS 96 QT since QTC 4:30/4:30 abnormal QRS-T angle. This is compared with EKG dated 10/30/18 showing similar configuration.) Past Medical History Past Medical History: Coronary Artery Disease (CAD), GERD/Reflux, Hyperlipidemia, Hypertension History of Any Multi-Drug Resistant Organisms: None Reported Past Surgical History: Heart Catheterization With Stent Additional Past Surgical History / Comment(s): pt stated had surgery on R thumb for tendons, colonoscopy,x1 stent with Dr. Everett 12/27/17 and x2 stents 12/07/17 in [place] Past Anesthesia/Blood Transfusion Reactions: No Reported Reaction Date of Last Stent Placement:: 12/07/17 GB in [place] Past Psychological History: No Psychological Hx Reported Smoking Status: Light tobacco smoker Past Alcohol Use History: Rare Past Drug Use History: None Reported - Past Family History Mother Family Medical History: Hypertension Additional Family Medical History / Comment(s): Paternal grandfather of a M I at the age of 75yrs. Father Family Medical History: Cancer, Hypertension Additional Family Medical History / Comment(s): Prostate Cancer General Exam - General Exam Comments Initial Comments: This is a well-developed well-nourished awake alert oriented 3 male Limitations: no limitations General appearance: alert, in no apparent distress Head exam: Present: atraumatic, normocephalic, normal inspection Eye exam: Present: normal appearance, PERRL, EOMI. Absent: scleral icterus, conjunctival injection, periorbital swelling ENT exam: Present: normal exam, mucous membranes moist Neck exam: Present: normal inspection, full ROM, other. Absent: tenderness, meningismus, lymphadenopathy Respiratory exam: Present: normal lung sounds bilaterally. Absent: respiratory distress, wheezes, rales, rhonchi, stridor Cardiovascular Exam: Present: regular rate, normal rhythm, normal heart sounds. Absent: systolic murmur, diastolic murmur, rubs, gallop, clicks GI/Abdominal exam: Present: soft, normal bowel sounds. Absent: distended, tenderness, guarding, rebound, rigid Extremities exam: Present: normal inspection, full ROM, normal capillary refill. Absent: tenderness, pedal edema, joint swelling, calf tenderness Back exam: Present: normal inspection Neurological exam: Present: alert, oriented X3, CN II-XII intact Psychiatric exam: Present: normal affect, normal mood Skin exam: Present: warm, dry, intact, normal color. Absent: rash Course Vital Signs 05/14/19 05/14/19 05/14/19 18:28 19:00 19:14 Temperature 97.9 F Pulse Rate 63 58 L 58 L Respiratory 18 18 15 Rate Blood Pressure 157/90 141/82 O2 Sat by Pulse 98 94 L Oximetry - Reevaluation(s) Reevaluation #1: 05/14/19 19:38 I did review the imaging and report. No acute findings. Chest Pain MDM - MDM Ran a pain it did not help with the previous presentations prior to his stent placements. Patient will be admitted he is agreed to this Dr. Talavera will be consulted the case is discussed with Dr. fairbanks. Critical Care Time Critical Care Time: Yes Total Critical Care Time: 31 Critical Care Time: 31 minutes of critical care time which includes th einitial evaluation, multiple reevaluations, review of old chating , discussion with Dr. Fairbanks and documentation as well as initial orders. Disposition Clinical Impression: Chest pain, Unstable angina pectoris Disposition: ADMITTED IP TO THIS HOSP Condition: Fair Referrals: Ariadne Nunn III, MD [Primary Care Provider] - 1-2 days
[2019-05-14 19:21] LABS: Potassium 4.8 mmol/L (3.5-5.1)
[2019-05-14 19:28] LABS: D-Dimer 0.27 mg/L FEU (<0.60); INR 0.9 (<1.2); Partial Thromboplastin Time 24.4 sec (22.0-30.0); Prothrombin Time 9.4 sec (9.0-12.0)
[2019-05-14] MEDS ORDERED: NITROGLYCERIN SL TABS 0.4 MG TAB SUBLINGUAL PRN (19:50)
[2019-05-14] MEDS ORDERED: HEPARIN SODIUM,PORCINE 5,000 UNIT/ML 1 ML VIAL IV ONE (19:50)
[2019-05-14] MEDS ORDERED: HEPARIN SOD,PORK IN 0.45% NACL 25,000 UNIT in 0.45% NACL 1 250ML.BAG IV SCH (20:00)
[2019-05-14] MEDS ORDERED: SODIUM CHLORIDE 0.9% 1,000 ML IV SCH (20:00)
[2019-05-14] MEDS: amLODIPine 10 MG TAB PO SCH ×2 (20:25→20:50)
[2019-05-14] MEDS: METOPROLOL TARTRATE 25 MG TAB PO SCH ×2 (20:25→20:50)
[2019-05-14] MEDS: PANTOPRAZOLE 40 MG TABLET PO SCH ×2 (20:25→20:50)
[2019-05-14] MEDS ORDERED: TICAGRELOR 90 MG TAB PO SCH (21:00)
[2019-05-14] MEDS: NITROGLYCERIN OINT 1 INCH/GM PACKET TOPICAL SCH (22:17)
[2019-05-15] MEDS: NITROGLYCERIN OINT 1 INCH/GM PACKET TOPICAL SCH ×2 (05:56→14:49)
[2019-05-15 06:44] LABS: Cholesterol 180 mg/dL (<200); HDL Cholesterol 37 mg/dL (40-60); LDL Cholesterol,Calculated 77 mg/dL (0-99); Triglycerides 330 mg/dL (<150)
[2019-05-15] MEDS ORDERED: DOBUTamine DRIP for NUC MED 500 MG in DEXTROSE/WATER 1 250ML.BAG IV ONE (08:59)
[2019-05-15] MEDS ORDERED: CLOPIDOGREL 75 MG TAB PO SCH (09:00)
[2019-05-15] MEDS ORDERED: ASPIRIN 325 MG TAB PO SCH (09:00)
[2019-05-15] MEDS ORDERED: LISINOPRIL 20 MG TAB PO SCH (09:00)
[2019-05-15] MEDS ORDERED: ATORVASTATIN 40 MG TAB PO SCH (09:00)
[2019-05-15 09:12] VITALS: RESP 16
--- NOTE | 2019-05-15 10:09 | CONS ---
CONSULTATION CHIEF COMPLAINT: Chest pain. Tae is a 54-year-old gentleman with known coronary artery disease, status post prior angioplasties, who is admitted to hospital with chest pain. The patient had multiple prior angioplasties including a stent in the right coronary artery and LAD. Most recently, he underwent cardiac catheterization in August of 2018 when he presented with symptoms that were concerning for unstable angina and his cardiac catheterization revealed patent stent. His EKG shows sinus rhythm with nonspecific ST-T wave changes. The patient states that he has been having chest discomfort ever since his initial stent was concerned yesterday and came in. He apparently has had multiple prior hospitalizations related to this very problem in multiple states. 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 I do not have all those records. I reviewed his angiographic data from his most recent thing. The patient had a stress echo in 2016 and apparently has had a stress test done through Dr. Everett's office more recently. PAST MEDICAL HISTORY: Significant for CAD, status post angioplasty. MEDICATIONS: Current medications include Lopressor 25 b.i.d., Norvasc 10 q. daily, aspirin, Plavix, Zetia and lisinopril. ALLERGIES: There are no known drug allergies. FAMILY HISTORY: Negative for premature coronary artery disease. SOCIAL HISTORY: Significant for smoking. There is no history of EtOH abuse or drug abuse. REVIEW OF SYSTEMS: HEENT is unremarkable. CARDIAC: As described above. RESPIRATORY: As described above. GI: Negative. GENITOURINARY: Negative. ALLERGY/IMMUNOLOGY: Negative. SKIN: Negative. MUSCULOSKELETAL: Significant for arthritis. PSYCHOSOCIAL: Negative. DERM: Negative. CONSTITUTIONAL: Negative. ONCOLOGICAL: Negative. MARKET DEVELOPMENT TRAINER: Negative. Rest of the system review is not relevant. PHYSICAL EXAMINATION: On exam, comfortable at rest. Vital signs are stable. There is no jugular venous distention. Carotid upstroke is normal. There is no bruit. Chest exam reveals good air entry bilaterally. Heart exam reveals first and second heart sounds. No gallop. No murmur. No rub. Abdomen is soft, nontender. Exam of extremities did not reveal any edema. Peripheral pulses are felt. MARKET DEVELOPMENT TRAINER exam did not reveal focal neurological deficits. LABS: Labs show a hemoglobin of 13.8, platelet count is 250. Three sets of troponins are negative. LDL cholesterol is normal. ASSESSMENT: 1. Precordial chest pain. 2. Coronary artery disease, status post multivessel angioplasty. PLAN: Myocardial infarction is ruled out. I will schedule him for a stress test. If this is negative, he will be discharged home. If this is abnormal, he will need another heart catheterization. MMRADHA / LILIANA: [id number] /
[2019-05-15] MEDS ORDERED: ATROPINE SULFATE 0.1 MG/ML 10ML SYRINGE ONE (12:05)
[2019-05-15] MEDS: METOPROLOL TARTRATE 25 MG TAB PO SCH (12:44)
[2019-05-15 13:00] VITALS: BP 129/91; PULSE 83; TEMP 97.8
--- NOTE | 2019-05-15 13:22 | ECHOS ---
STRESS ECHOCARDIOGRAM DOBUTAMINE STRESS ECHOCARDIOGRAM INDICATIONS: Chest pain. MEDICATIONS: BASELINE HEART RATE: 51 BASELINE BLOOD PRESSURE: 138/83 MAXIMUM HEART RATE: 142 MAXIMUM BLOOD PRESSURE: 174/57 85% MPHR: 139 100% MPHR: 164 METS: MAXIMUM STAGE REACHED: TOTAL EXERCISE TIME: CLINICAL INFORMATION: STRESS DATA: Heart rate 51, pressure is 138/83 mmHg. Baseline EKG showed sinus rhythm. Dobutamine infusion at a dose of 10 mcg/kg per minute was initiated and increased to 40 mcg/kg per minute. Max heart rate was 142 which is about 86% of maximum predicted heart rate and maximum blood pressure was 174/57 mmHg. Clinically the patient did not have no symptoms of chest pain or chest discomfort. The EKG did not show any significant ST or T-wave abnormalities concerning for ischemia. ECHOCARDIOGRAM IMAGES: On echocardiogram images from parasternal long axis view, parasternal short axis view, apical 4 chamber and apical 2 chamber view were obtained as the baseline images, at low dose dobutamine infusion, the heart rate at the recovery and the echocardiogram images showed good augmentation in the left ventricular systolic function without any evidence of wall motion abnormalities concerning for ischemia. CONCLUSION: 1. Normal EKG in response to dobutamine. 2. Normal echocardiogram in response to dobutamine. 3. Essentially normal dobutamine stress echocardiogram for the patient. MMODL / IJN: [id number] /
--- NOTE | 2019-05-18 09:15 | P.HPIM ---
History of Present Illness Please consider this note as combined H&P and Discharge summary diagnoses: -Chest pain, cardiac causes ruled out with normal stress echo test per demolition expert. D-dimer is negative and the suspicion for PE is very low. Could be musculoskeletal, GERD, psychological versus others -Hypertension -Hyperlipidemia -GERD -History of coronary artery disease status post stent 2 in 2018 hospital course This is a pleasant 54 years old male with past medical history of coronary artery disease, GERD, hyperlipidemia, hypertension, coronary artery disease status post stents 2 in 2018, cigarette smoker. Presents because of chest pain, Twist Maker evaluated the patient and recommended stress test.he underwent stress echo which came back negative , his chest pain has subsided on the morning of discharge, no dyspnea , no change in urine or bowel habit , no nausea or vomiting , no abd pain , she is tolerating diet well . no fever he has history of GERD and thinks his pain could be related to GI , as sometimes he feels some burning sensation or dyspepia, pt is counseled to f/u with GI service and he agrees, risks including but not limited to cancer is explained Vitals are stable. CBC, INR are unremarkable, d-dimer is negative at 0.27, BMP and liver enzymes are not elevated, serial troponins are negative, proBNP is 82. Chest x-ray: No acute process. EKG showing normal sinus rhythm with first degree AV block at a rate of 60 bpm, QTC is 4:[address]-T changes pt was cleared for discharge by Twist Maker Pt was instructed about the problems and management plan and Pt verbalized understanding and acceptance Pt is found stable and can be discharged to the community but needs follow up as outpt. pt was instructed to follow up with his PCP in one week and pt agrees pt agrees with appointments and their timing and stated he will follow up , he agrees with GI appointment on 06/01 and timing review of systems CONSTITUTIONAL: No fever, no malaise, no fatigue. HEENT: No recent visual problems or hearing problems. Denied any sore throat. CARDIOVASCULAR: No orthopnea, PND, no palpitations, no syncope. PULMONARY: No shortness of breath, no cough, no hemoptysis. GASTROINTESTINAL: No diarrhea, no nausea, no vomiting, no abdominal pain. Normoactive bowel sounds. NEUROLOGICAL: No headaches, no weakness, no numbness. HEMATOLOGICAL: Denies any bleeding or petechiae. GENITOURINARY: Denies any burning micturition, frequency, or urgency. MUSCULOSKELETAL/RHEUMATOLOGICAL: Denies any joint pain, swelling, or any muscle pain. ENDOCRINE: Denies any polyuria or polydipsia. Discharge exam Gen.: Patient alert awake and oriented X 3, NOT IN DISTRESS CVS: s1-s2, RRR, no murmur CHEST:bilateral CTA, no wheezing or crepitation Abdomen: Soft, no tenderness, no distention, positive bowel sounds Extremities: No leg edema or induration time spent : more than 35 min Review of Systems CONSTITUTIONAL: No fever, no malaise, no fatigue. HEENT: No recent visual problems or hearing problems. Denied any sore throat. CARDIOVASCULAR: No orthopnea, PND, no palpitations, no syncope. PULMONARY: No shortness of breath, no cough, no hemoptysis. GASTROINTESTINAL: No diarrhea, no nausea, no vomiting, no abdominal pain. Normoactive bowel sounds. NEUROLOGICAL: No headaches, no weakness, no numbness. HEMATOLOGICAL: Denies any bleeding or petechiae. GENITOURINARY: Denies any burning micturition, frequency, or urgency. MUSCULOSKELETAL/RHEUMATOLOGICAL: Denies any joint pain, swelling, or any muscle pain. ENDOCRINE: Denies any polyuria or polydipsia. Past Medical History Past Medical History: Coronary Artery Disease (CAD), GERD/Reflux, Hyperlipidemia, Hypertension History of Any Multi-Drug Resistant Organisms: None Reported Past Surgical History: Heart Catheterization With Stent Additional Past Surgical History / Comment(s): pt stated had surgery on R thumb for tendons, colonoscopy,x1 stent with Dr. Everett 12/27/17 and x2 stents 12/07/17 in [place] Past Anesthesia/Blood Transfusion Reactions: No Reported Reaction Date of Last Stent Placement:: 12/07/17 GB in [place] Smoking Status: Current every day smoker - Past Family History Mother Family Medical History: Hypertension Additional Family Medical History / Comment(s): Paternal grandfather of a [place] at the age of 75yrs. Father Family Medical History: Cancer, Hypertension Additional Family Medical History / Comment(s): Prostate Cancer Medications and Allergies Home Medications Medication Instructions Recorded Confirmed Type Aspirin 81 mg PO BID 11/17/13 05/15/19 History Lisinopril 40 mg PO HS 05/25/16 05/15/19 History amLODIPine [Norvasc] 10 mg PO HS 12/27/17 05/15/19 History Metoprolol Tartrate [Lopressor] 25 mg PO BID #60 tab 12/28/17 05/15/19 Rx Nitroglycerin Sl Tabs [Nitrostat] 0.4 mg SUBLINGUAL Q5M PRN #30 tab 12/28/17 05/15/19 Rx Clopidogrel [Plavix] 75 mg PO HS 10/30/18 05/15/19 History Ascorbic Acid [Vitamin C] 1,000 mg PO HS 05/15/19 05/15/19 History Atorvastatin [Lipitor] 40 mg PO DAILY #30 tab 05/15/19 Rx Cyanocobalamin (Vitamin B-12) 1,000 mcg PO HS 05/15/19 05/15/19 History [Vitamin B-12] Ezetimibe [Zetia] 10 mg PO HS 05/15/19 05/15/19 History Krill Oil 500 mg PO DAILY 05/15/19 05/15/19 History Multivitamins, Thera [Multivitamin 1 tab PO HS 05/15/19 05/15/19 History (formulary)] Pantoprazole [Protonix] 40 mg PO HS #30 tablet. 05/15/19 Rx Allergies Allergy/AdvReac Type Severity Reaction Status Date / Time No Known Allergies Allergy Verified 05/15/19 08:41 Physical Exam Vitals: Vital Signs Temp Pulse Pulse Resp BP BP Pulse Ox 05/15/19 08:00 97.5 F L 55 L 16 149/75 97 05/15/19 04:00 98 F 62 18 132/65 97 05/15/19 03:06 61 05/14/19 23:39 61 18 138/67 96 05/14/19 20:40 97.8 F 55 L 18 122/83 98 05/14/19 20:22 98.5 F 52 L 15 118/70 96 05/14/19 19:14 58 L 15 94 L 05/14/19 19:00 58 L 18 141/82 05/14/19 18:28 97.9 F 63 18 157/90 98 Intake and Output 05/14/19 05/15/19 05/15/19 22:59 06:59 14:59 Intake Total 71.029 Balance 71.029 Intake: Intake, IV Titration 71.029 Amount Heparin Sod,Pork in 0.45% 71.029 NaCl 25,000 unit In 0.45 % NaCl 1 250ml.bag @ 9.5 UNITS/KG/HR 9.911 mls/hr IV .Q24H [facility] Rx#: [id number] Other: Voiding Method Toilet # Voids 0 Weight 104.326 kg 107.4 kg GENERAL: The patient is alert and oriented x3, not in any acute distress. Well developed, well nourished. HEENT: Pupils are round and equally reacting to light. EOMI. No scleral icterus. No conjunctival pallor. Normocephalic, atraumatic. No pharyngeal erythema. No thyromegaly. CARDIOVASCULAR: S1 and S2 present. No murmurs, rubs, or gallops. PULMONARY: Chest is clear to auscultation, no wheezing or crackles. ABDOMEN: Soft, nontender, nondistended, normoactive bowel sounds. No palpable organomegaly. MUSCULOSKELETAL: No joint swelling or deformity. EXTREMITIES: No cyanosis, clubbing, or pedal edema. NEUROLOGICAL: Gross neurological examination did not reveal any focal deficits. SKIN: No rashes. No petechiae Results CBC & Chem 7: 05/14/19 18:48 05/14/19 18:48 Labs: Abnormal Lab Results - Last 24 Hours (Table) 05/14/19 05/15/19 05/15/19 Range/Units 18:48 02:21 06:11 APTT 40.8 H (22.0-30.0) sec Chloride 110 H (98-107) mmol/L Glucose 127 H (74-99) mg/dL Triglycerides 330 H (<150) mg/dL HDL Cholesterol 37 L (40-60) mg/dL Thrombosis Risk Factor Assmnt - Choose All That Apply Any of the Below Risk Factors Present?: Yes Each Factor Represents 1 point: Obesity (BMI >25) Thrombosis Risk Factor Assessment Total Risk Factor Score: 1 Thrombosis Risk Factor Assessment Level: Low Risk
== END 2019-05-15 16:28 | disposition home or self-care (01) ==
LOC: EC 18:25 → 3SCARD 19:51
PROVIDERS: ADMIT Internal Medicine; ATTEND Internal Medicine
DX: R07.2 Precordial pain (principal); R20.0 Anesthesia of skin; I10 Essential (primary) hypertension; E78.5 Hyperlipidemia, unspecified; K21.9 Gastro-esophageal reflux disease without esophagitis; I25.10 Atherosclerotic heart disease of native coronary artery without angina pectoris; M19.90 Unspecified osteoarthritis, unspecified site; F17.200 Nicotine dependence, unspecified, uncomplicated; Z79.82 Long term (current) use of aspirin; Z79.899 Other long term (current) drug therapy; Z79.02 Long term (current) use of antithrombotics/antiplatelets; Z82.49 Family history of ischemic heart disease and other diseases of the circulatory system; Z80.42 Family history of malignant neoplasm of prostate; Z95.5 Presence of coronary angioplasty implant and graft
CPT/HCPCS: 96366 ×2; 93005 ×2; 96376; 96361; 96365; 99291; 36415; 93351; 85379; 83880; 80061; 80053; 82550; 83690; 83735; 84484 ×2; 85025; 85610; 85730 ×2; 71046; G0378 ×2; J1250; J1644 ×2; J0461

== ENCOUNTER → 2019-10-06 | Outpatient (CLI) | payer BC ==
[2019-10-06 10:41] LABS: HCT 44.5 % (39.0-53.0); HGB 14.4 gm/dL (13.0-17.5); MCH 31.3 pg (25.0-35.0); MCHC 32.3 g/dL (31.0-37.0); MCV 96.8 fL (80.0-100.0); Mean Platelet Volume 7.9; Platelet Count 258 k/uL (150-450); WBC 8.8 k/uL (3.8-10.6)
[2019-10-06 17:26] LABS: African American GFR (CKD) 110.3 (60.0-200.0); BUN/Creat Ratio 18.89 Ratio (12.00-20.00); C Reactive Protein <0.4 mg/dL (0.0-0.8); Calcium 9.1 mg/dL (8.7-10.3); Carbon Dioxide 21.8 mmol/L (21.6-31.8); Chloride 110 mmol/L (96-109); Glucose 117 mg/dL (70-110); Non-African American GFR(CKD) 95.1 (60.0-200.0); Potassium 4.5 mmol/L (3.5-5.5); Sodium 140 mmol/L (135-145)
== END | disposition home or self-care (01) ==
LOC: LABWHC1 09:28
PROVIDERS: ATTEND Internal Medicine Interventional Cardiology
DX: I10 Essential (primary) hypertension (principal); I25.10 Atherosclerotic heart disease of native coronary artery without angina pectoris
CPT/HCPCS: 36415; 80048; 85027; 86140

== ENCOUNTER → 2020-01-02 | Outpatient (CLI) | payer BC ==
[2020-01-02 15:26] LABS: Chol/HDL Ratio 3.68; LDL Cholesterol,Calculated 64.2 mg/dL (0.0-131.0); VLDL Calculation 37.8 mg/dL (5.00-40.00)
== END | disposition home or self-care (01) ==
LOC: LABWHC1 08:57
PROVIDERS: ATTEND Internal Medicine Interventional Cardiology
DX: E78.2 Mixed hyperlipidemia (principal)
CPT/HCPCS: 36415; 80061; 84450; 84460

== ENCOUNTER 2020-02-02 10:14 | Day surgery (SDC) | payer BC ==
[2020-01-24 09:39] VITALS: BMI 30.9
[~2020-02-02 10:14] MED LIST: LACTATED RINGERS 1,000 ML IV SCH
[2020-02-02 11:05] VITALS: TEMP 98
[2020-02-02] MEDS ORDERED: LIDOCAINE 1% (10MG/ML) FOR IV START INTRADERMA ONE (11:10)
[2020-02-02] MEDS ORDERED: LIDOCAINE 1% INJ 10MG/ML (20 ML MDV) ONE (12:09)
[2020-02-02] MEDS ORDERED: PROPOFOL 10 MG/ML 20 ML VIAL IV ONE (12:09)
--- NOTE | 2020-02-02 12:23 | P.PCN ---
Date of Procedure: 02/02/20 Procedure(s) Performed: BRIEF HISTORY: Patient is a 54-year-old, pleasant, white male scheduled for an upper endoscopy as a part of evaluation of atypical chest pain for the last 2 years duration. He had cardiac catheterization with stent placement about a year ago. He continued to have persistent chest pain and hence had a repeat cardiac catheterization done 6 months ago and no obvious large lesions were seen. He was given a trial of Prilosec 20 mg twice daily but had diarrhea and hence of the medication. He denies any heartburn. No dysphagia or odynophagia. Recently was given a trial of Protonix 40 mg twice daily and had diarrhea again and hence stop the medication. He scheduled for an upper endoscopy to evaluate for atypical chest pain PROCEDURE PERFORMED: Esophagogastroduodenoscopy with biopsy. PREOPERATIVE DIAGNOSIS:. Atypical chest pain of 2 years duration. IV sedation per anesthesia. PROCEDURE: After informed consent was obtained, the patient was brought into the endoscopy unit. IV sedation was administered by Anesthesia under continuous monitoring. Initially the Olympus GIF-140 video endoscope was inserted into the mouth. Esophagus intubated without any difficulty. It was gradually advanced into the stomach and duodenum and carefully examined. The bulb and the second part of the duodenum appeared normal. The scope at this time was withdrawn to the stomach, adequately insufflated with air, and upon careful examination, mucosa of the antrum, had mild gastritis and biopsies were done from this area. The body, cardia and the fundus appeared normal. The scope was then withdrawn into the esophagus. Small hiatal hernia noted. The GE junction was located at 43 cm from the incisors. There was short segment of Witt's esophagus extending 3-4 mm proximal to the GE junction and this was biopsied. Also there were couple of erosions at the GE junction consistent with LA grade B reflux esophagitis. Rest of esophagus appeared normal and the patient tolerated the procedure well. IMPRESSION: 1. LA grade a reflux esophagitis. 2. Short segment Witt's esophagus 3. Small hiatal hernia 4. Mild antral gastritis and duodenitis RECOMMENDATIONS: The findings of this examination were discussed with the patient as well as his family. He was advised to follow with the biopsy results. Since he developed diarrhea with Protonix and Prilosec, I suggested that be started on Pepcid 40 mg twice daily and was briefly educated about antireflux measures. He'll be seen back in office in 6 weeks..
[2020-02-02 12:29] VITALS: RESP 16
[2020-02-02 12:37] VITALS: BP 118/61; PULSE 61
== END 2020-02-02 13:11 | disposition home or self-care (01) ==
LOC: ORWHC2ENDO 10:14
PROVIDERS: ATTEND Internal Medicine Gastroenterology
DX: K21.00 Gastro-esophageal reflux disease with esophagitis, without bleeding (principal); K22.70 Barrett's esophagus without dysplasia; K44.9 Diaphragmatic hernia without obstruction or gangrene; K29.50 Unspecified chronic gastritis without bleeding; K29.80 Duodenitis without bleeding; I10 Essential (primary) hypertension; E78.5 Hyperlipidemia, unspecified; Z95.5 Presence of coronary angioplasty implant and graft; Z88.8 Allergy status to other drugs, medicaments and biological substances; Z79.899 Other long term (current) drug therapy; Z79.82 Long term (current) use of aspirin; Z98.890 Other specified postprocedural states; Z87.39 Personal history of other diseases of the musculoskeletal system and connective tissue
CPT/HCPCS: 88305; 43239; J2001; J2704

== ENCOUNTER 2021-11-04 06:38 | Observation (INO) | payer BC, OTHER ==
--- NOTE | 2021-11-04 07:12 | XR ---
EXAMINATION TYPE: XR chest 2V DATE OF EXAM: 11/04/2021 COMPARISON: Outside chest x-ray report May 14, 2019 HISTORY: Chest pain. TECHNIQUE: Frontal and lateral views of the chest are obtained. FINDINGS: There is no suspicious focal air space opacity, pleural effusion, or pneumothorax seen. The cardiac silhouette size is within normal limits. The osseous structures are intact. IMPRESSION: No acute pulmonary process.
[2021-11-04] MEDS ORDERED: ASPIRIN 81 MG PO STA (10:35)
--- NOTE | 2021-11-04 10:36 | ED ---
Chest Pain HPI - General Chief Complaint: Chest Pain Stated Complaint: chest pain Time Seen by Provider: 11/04/21 10:14 Source: patient, RN notes reviewed Mode of arrival: ambulatory Limitations: no limitations - History of Present Illness Initial Comments: 48-year-old male presents emergency Department chief complaint of chest pain. Patient states started this morning. Patient states to when he had issues with her in the past. Patient states she had 3 stents placed. Patient did have recent stress test which was normal but states that he had normal stress is prior to his 3 stents. Patient states is very similar pain centralized chest pain and pressure. No shortness breath no legs pain or leg swelling denies being feeling short of breath no history of PE DVT patient is on multiple medications for current disease. Patient does admit he is a daily smoker. - Related Data Home Medications Medication Instructions Recorded Confirmed Aspirin 81 mg PO DAILY 11/17/13 11/04/21 lisinopriL 40 mg PO DAILY 05/25/16 11/04/21 amLODIPine [Norvasc] 10 mg PO HS 12/27/17 11/04/21 Cyanocobalamin (Vitamin B-12) 1,000 mcg PO DAILY 05/15/19 11/04/21 [Vitamin B-12] Krill Oil 500 mg PO DAILY 05/15/19 11/04/21 Multivitamins, Thera [Multivitamin 1 tab PO DAILY 05/15/19 11/04/21 (formulary)] Isosorbide Mononitrate ER [Imdur] 60 mg PO BID@0800,1200 01/24/20 11/04/21 Atorvastatin [Lipitor] 40 mg PO HS 11/04/21 11/04/21 Famotidine [Pepcid] 40 mg PO BID 11/04/21 11/04/21 Metoprolol Tartrate [Lopressor] 12.5 mg PO BID 11/04/21 11/04/21 Qunol 1 cap PO HS 11/04/21 11/04/21 hydroCHLOROthiazide [Hydrodiuril] 25 mg PO HS 11/04/21 11/04/21 Previous Rx's Medication Instructions Recorded Nitroglycerin Sl Tabs [Nitrostat] 0.4 mg SUBLINGUAL Q5M PRN #30 tab 12/28/17 Allergies Allergy/AdvReac Type Severity Reaction Status Date / Time No Known Allergies Allergy Verified 11/04/21 06:45 Review of Systems ROS Statement: Those systems with pertinent positive or pertinent negative responses have been documented in the HPI. ROS Other: All systems not noted in ROS Statement are negative. EKG Findings - EKG Comments: EKG Findings:: EKG performed at 6:47 sinus rhythm with rate of 60. ND 186 QRS 11 QT/ QTC 425/425 Past Medical History Past Medical History: Coronary Artery Disease (CAD), GERD/Reflux, Hyperlipidemia, Hypertension History of Any Multi-Drug Resistant Organisms: None Reported Past Surgical History: Heart Catheterization With Stent Additional Past Surgical History / Comment(s): Right thumb tendon surgery, colonoscopy, stent with Dr. Everett 12/27/17 and 2 stents 12/07/17 in [facility]. Past Anesthesia/Blood Transfusion Reactions: No Reported Reaction Date of Last Stent Placement:: 12/27/17 Past Psychological History: No Psychological Hx Reported Smoking Status: Current every day smoker Past Alcohol Use History: None Reported Past Drug Use History: None Reported - Past Family History Mother Family Medical History: Hypertension Additional Family Medical History / Comment(s): Paternal grandfather of a [place] at the age of 75yrs. Father Family Medical History: Cancer, Hypertension Additional Family Medical History / Comment(s): Prostate Cancer. General Exam Limitations: no limitations General appearance: alert, in no apparent distress Head exam: Present: atraumatic, normocephalic, normal inspection Eye exam: Present: normal appearance, PERRL, EOMI. Absent: scleral icterus, conjunctival injection, periorbital swelling ENT exam: Present: normal exam, mucous membranes moist Neck exam: Present: normal inspection. Absent: tenderness, meningismus, lymphadenopathy Respiratory exam: Present: normal lung sounds bilaterally. Absent: respiratory distress, wheezes, rales, rhonchi, stridor Cardiovascular Exam: Present: regular rate, normal rhythm, normal heart sounds. Absent: systolic murmur, diastolic murmur, rubs, gallop, clicks Extremities exam: Absent: pedal edema, calf tenderness Neurological exam: Present: alert Course Vital Signs 11/04/21 11/04/21 06:42 11:19 Temperature 98.3 F Pulse Rate 61 56 L Respiratory 22 18 Rate Blood Pressure 117/74 119/81 O2 Sat by Pulse 97 96 Oximetry Chest Pain MDM - [facility] 48-year-old male presented for chest pain initial working bleeding labs EKG and chest x-ray did not reveal any acute findings. Patient does have a significant cardiac history will be admitted for cardiac rule out. Disposition Clinical Impression: Chest pain Disposition: ADMITTED IP TO THIS HOSP Condition: Fair Referrals: Ariadne Nunn III, MD [Primary Care Provider] - 1-2 days Time of Disposition: 12:54
[2021-11-04 11:00] LABS: Basophils # (A) 0.1 k/uL (0-0.2); Basophils % (A) 1 %; Eosinophils # (A) 0.2 k/uL (0-0.7); Eosinophils % (A) 2 %; HCT 40.7 % (39.0-53.0); HGB 13.5 gm/dL (13.0-17.5); Lymphocytes # (A) 2.3 k/uL (1.0-4.8); Lymphocytes % (A) 25 %; MCH 31.7 pg (25.0-35.0); MCHC 33.2 g/dL (31.0-37.0); MCV 95.6 fL (80.0-100.0); Mean Platelet Volume 7.7; Monocytes # (A) 0.6 k/uL (0-1.0); Monocytes % (A) 7 %; Neutrophils # (A) 5.8 k/uL (1.3-7.7); Neutrophils % (A) 63 %; Platelet Count 273 k/uL (150-450); RBC 4.26 m/uL (4.30-5.90); RDW 12.9 % (11.5-15.5); WBC 9.3 k/uL (3.8-10.6)
[2021-11-04 11:10] LABS: INR 0.9 (<1.2)
[2021-11-04 11:13] LABS: ALT 35 U/L (4-49); AST 23 U/L (17-59); African American GFR (CKD) >90 (>60 ml/min/1.73 sqM); Albumin 4.2 g/dL (3.5-5.0); Alkaline Phosphatase 67 U/L (38-126); Anion Gap 10 mmol/L; Blood Urea Nitrogen 15 mg/dL (9-20); Calcium 9.3 mg/dL (8.4-10.2); Carbon Dioxide 29 mmol/L (22-30); Chloride 100 mmol/L (98-107); Glucose 141 mg/dL (74-99); Non-African American GFR(CKD) >90 (>60 ml/min/1.73 sqM); Potassium 3.7 mmol/L (3.5-5.1); Sodium 139 mmol/L (137-145); Total Bilirubin 0.7 mg/dL (0.2-1.3); Total Protein 6.6 g/dL (6.3-8.2)
[2021-11-04] MEDS ORDERED: KETOROLAC 15 MG/ML 1 ML VIAL IVP STA (11:30)
[2021-11-04] MEDS ORDERED: NITROGLYCERIN SL TABS 0.4 MG TAB SUBLINGUAL PRN (12:55)
--- NOTE | 2021-11-04 16:40 | P.HPIM ---
History of Present Illness H&P Date: 11/04/21 Chief Complaint: chest pain Patient is a 56-year-old male with past medical history of CAD s/p stents in RCA and LAD, hypertension, dyslipidemia, GERD presenting with acute chest pain. He claims that his chest pain started around 2 AM and it is severe "squeezing" type in the left pectoral area. He denies any radiation. He claims that his chest pain seems similar to prior episodes, but more intense. He denies any nausea, vomiting. He denies any abdominal pain or fevers or chills. He denies any palpitations or lightheadedness. 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 He occasionally does 8 hour d riving with break every 12 hours. He denies any lower extremity swelling. He denies any shortness of breath. He is a well-established patient with Dr. Everett. He claims that he had a recent stress test about one month ago which was negative. Last cath done in 09/09 showed patent stents. In the ED, patient's vitals were unremarkable with a heart rate around 60. His troponin was negative 2, rest of the labs were unremarkable. EKG showed normal sinus rhythm. Chest x-ray did not show any acute process. Pertinent positives and negatives as discussed in HPI, a complete review of systems was performed and all other systems are negative. Patient seen and examined at bedside. Vital signs reviewed General: nontoxic, no distress, appears at stated age Derm: warm, dry Head: atraumatic, normocephalic, symmetric Eyes: EOMI, no lid lag, anicteric sclera, pupils equal round reactive to light ENT: Nose and ears atraumatic Neck: No thyromegaly, no cervical lymphadenopathy, trachea midline, supple Mouth: no lip lesion, mucus membranes moist Cardiovascular: S1S2 reg, no murmur, no edema Lungs: clear to auscultation bilateral, no rhonchi, no rales, no wheeze, no accessory muscle use Abdominal: soft, nontender to palpation, no guarding, no appreciable organomegaly, normal bowel sounds Ext: no gross muscle atrophy, muscle strength muscle strength 5 out of 5 in all 4 extremities, no contractures Neuro: CN II-XII grossly intact, light touch intact all 4 extremities Psych: Alert, oriented, appropriate affect Assessment/Plan: Acute chest pain, rule out ACS Coronary artery disease -Troponin negative 2, trend -Recent stress test per patient was negative -EKG shows normal sinus rhythm -Chest x-ray unremarkable -Patient has a moderate risk for DVT/PE given his presentation of acute chest pain, will get d-dimer -Chest pain could possibly be related to GERD -Continue telemetry -Cardiology consult -Aspirin and statin Chronic medical problems: Hypertension Dyslipidemia Former smoker GERD -Continue home medications The patient is admitted with an anticipated less than 2 midnight stay for evaluation of acute chest pain. Surrogate decision-maker: CODE STATUS: Full code DVT prophylaxis: Subcu heparin Anticipated discharge date: 11/[address]: Home A total of 40 minutes was spent on the care of this complex patient more than 50% of the time was spent in counseling and care coordination. Past Medical History Past Medical History: Coronary Artery Disease (CAD), GERD/Reflux, Hyperlipidemia, Hypertension History of Any Multi-Drug Resistant Organisms: None Reported Past Surgical History: Heart Catheterization With Stent Additional Past Surgical History / Comment(s): Right thumb tendon surgery, colonoscopy, stent with Dr. Everett 12/27/17 and 2 stents 12/07/17 in [facility]. Past Anesthesia/Blood Transfusion Reactions: No Reported Reaction Date of Last Stent Placement:: 12/27/17 Past Psychological History: No Psychological Hx Reported Smoking Status: Current every day smoker (claims that he stopped 1 month ago) Past Alcohol Use History: None Reported Past Drug Use History: None Reported - Past Family History Mother Family Medical History: Hypertension Additional Family Medical History / Comment(s): Paternal grandfather of a [place] at the age of 75yrs. Father Family Medical History: Cancer, Hypertension Additional Family Medical History / Comment(s): Prostate Cancer. Medications and Allergies Home Medications Medication Instructions Recorded Confirmed Type Aspirin 81 mg PO DAILY 11/17/13 11/04/21 History lisinopriL 40 mg PO DAILY 05/25/16 11/04/21 History amLODIPine [Norvasc] 10 mg PO HS 12/27/17 11/04/21 History Nitroglycerin Sl Tabs [Nitrostat] 0.4 mg SUBLINGUAL Q5M PRN #30 tab 12/28/17 11/04/21 Rx Cyanocobalamin (Vitamin B-12) 1,000 mcg PO DAILY 05/15/19 11/04/21 History [Vitamin B-12] Krill Oil 500 mg PO DAILY 05/15/19 11/04/21 History Multivitamins, Thera [Multivitamin 1 tab PO DAILY 05/15/19 11/04/21 History (formulary)] Isosorbide Mononitrate ER [Imdur] 60 mg PO BID@0800,1200 01/24/20 11/04/21 History Atorvastatin [Lipitor] 40 mg PO HS 11/04/21 11/04/21 History Famotidine [Pepcid] 40 mg PO BID 11/04/21 11/04/21 History Metoprolol Tartrate [Lopressor] 12.5 mg PO BID 11/04/21 11/04/21 History Qunol 1 cap PO HS 11/04/21 11/04/21 History hydroCHLOROthiazide [Hydrodiuril] 25 mg PO HS 11/04/21 11/04/21 History Allergies Allergy/AdvReac Type Severity Reaction Status Date / Time No Known Allergies Allergy Verified 11/04/21 06:45 Physical Exam Vitals: Vital Signs Temp Pulse Resp BP Pulse Ox 11/04/21 15:02 99 11/04/21 13:59 59 L 16 107/54 100 11/04/21 11:19 56 L 18 119/81 96 11/04/21 06:42 98.3 F 61 22 117/74 97 Intake and Output 11/04/21 11/04/21 11/04/21 06:59 14:59 22:59 Other: Weight 104.326 kg Results CBC & Chem 7: 11/04/21 10:51 11/04/21 10:51 Labs: Abnormal Lab Results - Last 24 Hours (Table) 11/04/21 11/04/21 Range/Units 10:51 10:51 RBC 4.26 L (4.30-5.90) m/uL Glucose 141 H (74-99) mg/dL
[2021-11-04] MEDS ORDERED: NITROGLYCERIN OINT 1 INCH/GM PACKET TOPICAL STA (19:53)
[2021-11-04] MEDS: FAMOTIDINE 20 MG TAB PO SCH (20:38)
[2021-11-04] MEDS: METOPROLOL TARTRATE 12.5 MG TAB PO SCH (20:38)
[2021-11-04] MEDS ORDERED: QUNOL PO SCH (21:00)
[2021-11-04] MEDS ORDERED: hydroCHLOROthiazide 25 MG TAB PO SCH (21:00)
[2021-11-04] MEDS ORDERED: ATORVASTATIN 40 MG TAB PO SCH (21:00)
[2021-11-04] MEDS ORDERED: amLODIPine 10 MG TAB PO SCH (21:00)
[2021-11-05] MEDS: HEPARIN SODIUM,PORCINE/PF 5,000 UNIT/0.5 ML SYRINGE SQ SCH ×2 (01:11→09:26)
[2021-11-05] MEDS ORDERED: ISOSORBIDE MONONITRATE ER 60 MG TAB.ER.24H PO SCH (08:00)
[2021-11-05] MEDS ORDERED: MORPHINE SULFATE 2 MG/ML SYRINGE IVP PRN (08:07)
[2021-11-05] MEDS ORDERED: NON FORMULARY DRUG (Krill Oil [Krill Oil] 500 MG Capsule) PO SCH (09:00)
[2021-11-05] MEDS ORDERED: CYANOCOBALAMIN 500 MCG TAB PO SCH (09:00)
[2021-11-05] MEDS ORDERED: ASPIRIN 81 MG PO SCH (09:00)
[2021-11-05] MEDS ORDERED: ASPIRIN 325 MG TAB PO SCH (09:00)
[2021-11-05] MEDS ORDERED: lisinopriL 20 MG TAB PO SCH (09:00)
[2021-11-05] MEDS ORDERED: MULTIVITAMINS, THERA 1 EACH TAB PO SCH (09:00)
[2021-11-05 09:01] VITALS: RESP 16
[2021-11-05] MEDS: METOPROLOL TARTRATE 12.5 MG TAB PO SCH (09:26)
[2021-11-05] MEDS: FAMOTIDINE 20 MG TAB PO SCH (09:26)
[2021-11-05 10:52] LABS: Chol/HDL Ratio 4.43 Ratio; LDL Cholesterol,Calculated 43.6 mg/dL (0.0-131.0)
--- NOTE | 2021-11-05 10:54 | P.CRDCN ---
History of Present Illness History of present illness: HISTORY OF PRESENT ILLNESS: This is a 56-year-old male with a past medical history significant for former nicotine dependence, hypertension, hyperlipidemia, and coronary artery disease with previous stenting. Patient follows in the office with Dr. Everett. We have been asked to see the patient in consultation for chest pain. Patient examined at the bedside. Patient presented to the hospital with chief complaint of chest pain. Patient states the pain is on the left side of his chest and is nonradiating. He states the pain has been constant for 2-3 days. He denies shortness of breath. Patient continued to report pain at the time of examination this morning. 2 repeat EKGs were completed which were both negative for ischemia. * EKG reveals sinus mechanism with no signs of acute ischemia * Chest xray negative for acute process. * Laboratory data: WBC 9.3. Hemoglobin 13.5. Platelet count 273. D-dimer 0.26. Sodium 139. Potassium 3.7. BUN 15. Creatinine 0.89. Troponin negative 3. * Current home cardiac medications include Lipitor 40 mg at night, Norvasc 10 mg at night, hydrochlorothiazide 25 mg at night, aspirin 81 mg daily, Imdur 60 mg twice a day, metoprolol tartrate 12.5 mg twice a day, lisinopril 40 mg daily. * Most recent echocardiogram obtained in September 2019 revealed ejection fraction 55%, [id number] mitral regurgitation, mild tricuspid regurgitation * Patient underwent Lexiscan stress test in July 2021 was negative for stress-induced ischemia * Cardiac catheterization history: August 2018 revealing patent stent in the RCA and LAD REVIEW OF SYSTEMS: At the time of my exam: CONSTITUTIONAL: Denies fever or chills. HEENT: Denies blurred vision, vision changes, or eye pain. Denies hemoptysis CARDIOVASCULAR: Denies chest pain. Denies orthopnea. Denies PND. Denies palpitations RESPIRATORY: Denies shortness of breath. GASTROINTESTINAL: Denies abdominal pain. Denies nausea or vomiting. HEMATOLOGIC: Denies bleeding disorders. GENITOURINARY: Denies any blood in urine. SKIN: Denies pruitis. Denies rash. PHYSICAL EXAM: VITAL SIGNS: Reviewed. GENERAL: Well-developed in no acute distress. HEENT: Head is normocephalic. Pupils are equal, round. Sclerae anicteric. Mucous membranes of the mouth are moist. Neck supple. No JVD or thyromegaly LUNGS: Respirations even and unlabored. Lungs essentially clear to auscultation bilaterally. HEART: Regular rate and rhythm. S1 and S2 heard. ABDOMEN: Soft. Nondistended. Nontender. EXTREMITIES: Normal range of motion. No clubbing or cyanosis. Peripheral pulses intact. No lower extremity edema NEUROLOGIC: Awake and alert. Oriented x 3. ASSESSMENT: Chest pain, troponin negative x 3, EKG negative for ischemia, with recent negative Ailyn scan Coronary artery disease with previous stenting Hypertension Hyperlipidemia Former nicotine dependence, patient quit smoking 2 months ago PLAN: An acute coronary event has been ruled out Resume home cardiac medications Increase atorvastatin to 80 mg at night Per Dr. Johnson, patient may be discharged home today from a cardiac standpoint and follow up on an outpatient basis with Dr. Everett. Nurse practitioner note has been reviewed by physician. Signing provider agrees with the documented findings, assessment, and plan of care. Past Medical History Past Medical History: Coronary Artery Disease (CAD), GERD/Reflux, Hyperlipidemia, Hypertension History of Any Multi-Drug Resistant Organisms: None Reported Past Surgical History: Heart Catheterization With Stent Additional Past Surgical History / Comment(s): Right thumb tendon surgery, colonoscopy, stent with Dr. Everett 12/27/17 and 2 stents 12/07/17 in [facility]. Past Anesthesia/Blood Transfusion Reactions: No Reported Reaction Date of Last Stent Placement:: 12/27/17 Past Psychological History: No Psychological Hx Reported Smoking Status: Current every day smoker (claims that he stopped 1 month ago) Past Alcohol Use History: None Reported Past Drug Use History: None Reported - Past Family History Mother Family Medical History: Hypertension Additional Family Medical History / Comment(s): Paternal grandfather of a [place] at the age of 75yrs. Father Family Medical History: Cancer, Hypertension Additional Family Medical History / Comment(s): Prostate Cancer. Medications and Allergies Home Medications Medication Instructions Recorded Confirmed Type Aspirin 81 mg PO DAILY 11/17/13 11/04/21 History lisinopriL 40 mg PO DAILY 05/25/16 11/04/21 History amLODIPine [Norvasc] 10 mg PO HS 12/27/17 11/04/21 History Nitroglycerin Sl Tabs [Nitrostat] 0.4 mg SUBLINGUAL Q5M PRN #30 tab 12/28/17 11/04/21 Rx Cyanocobalamin (Vitamin B-12) 1,000 mcg PO DAILY 05/15/19 11/04/21 History [Vitamin B-12] Krill Oil 500 mg PO DAILY 05/15/19 11/04/21 History Multivitamins, Thera [Multivitamin 1 tab PO DAILY 05/15/19 11/04/21 History (formulary)] Isosorbide Mononitrate ER [Imdur] 60 mg PO BID@0800,1200 01/24/20 11/04/21 History Atorvastatin [Lipitor] 40 mg PO HS 11/04/21 11/04/21 History Famotidine [Pepcid] 40 mg PO BID 11/04/21 11/04/21 History Metoprolol Tartrate [Lopressor] 12.5 mg PO BID 11/04/21 11/04/21 History Qunol 1 cap PO HS 11/04/21 11/04/21 History hydroCHLOROthiazide [Hydrodiuril] 25 mg PO HS 11/04/21 11/04/21 History Allergies Allergy/AdvReac Type Severity Reaction Status Date / Time No Known Allergies Allergy Verified 11/04/21 06:45 Physical Exam Vitals: Vital Signs Temp Pulse Pulse Resp BP BP Pulse Ox 11/05/21 08:56 57 L 16 11/05/21 07:18 97.7 F 49 L 20 117/74 97 11/05/21 01:33 97.9 F 52 L 17 111/59 94 L 11/04/21 19:34 97.6 F 53 L 15 133/71 98 11/04/21 18:25 53 L 16 123/75 97 11/04/21 15:02 99 11/04/21 13:59 59 L 16 107/54 100 11/04/21 11:19 56 L 18 119/81 96 Intake and Output 11/04/21 11/05/21 11/05/21 22:59 06:59 14:59 Other: Voiding Method Toilet # Voids 1 1 Results 11/04/21 10:51 11/04/21 10:51 Cardiac Enzymes 11/04/21 11/04/21 11/04/21 Range/Units 10:51 10:51 13:54 AST 23 (17-59) U/L Troponin I <0.012 <0.012 (0.000-0.034) ng/mL 11/04/21 Range/Units 17:40 AST (17-59) U/L Troponin I <0.012 (0.000-0.034) ng/mL Coagulation 11/04/21 Range/Units 10:51 PT 10.0 (9.0-12.0) sec APTT 26.0 (22.0-30.0) sec CBC 11/04/21 Range/Units 10:51 WBC 9.3 (3.8-10.6) k/uL RBC 4.26 L (4.30-5.90) m/uL Hgb 13.5 (13.0-17.5) gm/dL Hct 40.7 (39.0-53.0) % Plt Count 273 (150-450) k/uL Comprehensive Metabolic Panel 11/04/21 Range/Units 10:51 Sodium 139 (137-145) mmol/L Potassium 3.7 (3.5-5.1) mmol/L Chloride 100 (98-107) mmol/L Carbon Dioxide 29 (22-30) mmol/L BUN 15 (9-20) mg/dL Creatinine 0.89 (0.66-1.25) mg/dL Glucose 141 H (74-99) mg/dL Calcium 9.3 (8.4-10.2) mg/dL AST 23 (17-59) U/L ALT 35 (4-49) U/L Alkaline Phosphatase 67 (38-126) U/L Total Protein 6.6 (6.3-8.2) g/dL Albumin 4.2 (3.5-5.0) g/dL Current Medications Generic Name Dose Route Start Last Admin Trade Name Freq PRN Reason Stop Dose Admin Amlodipine Besylate 10 mg 11/04/21 21:00 11/04/21 20:38 Amlodipine 10 Mg Tab PO 10 mg HS KEITH Administration Aspirin 81 mg 11/05/21 09:00 11/05/21 09:26 Aspirin 81 Mg PO 81 mg DAILY KEITH Administration Atorvastatin Calcium 80 mg 11/05/21 21:00 Atorvastatin 80 Mg Tab PO HS KEITH Cyanocobalamin 1,000 mcg 11/05/21 09:00 11/05/21 09:26 Cyanocobalamin 500 Mcg Tab PO 1,000 mcg DAILY KEITH Administration Famotidine 40 mg 09/13/22 21:00 11/05/21 09:26 Famotidine 20 Mg Tab PO 40 mg BID KEITH Administration Heparin Sodium (Porcine) 5,000 unit 11/05/21 00:00 11/05/21 09:26 Heparin Sodium,Porcine/Pf 5,000 Unit/0.5 Ml Syringe SQ 5,000 unit Q8HR KEITH Administration Hydrochlorothiazide 25 mg 11/04/21 21:00 11/04/21 20:38 Hydrochlorothiazide 25 Mg Tab PO 25 mg HS KEITH Administration Isosorbide Mononitrate 60 mg 11/05/21 08:00 11/05/21 10:14 Isosorbide Mononitrate Er 60 Mg Tab.Er.24h PO 60 mg BID@0800,1200 KEITH Administration Lisinopril 40 mg 11/05/21 09:00 11/05/21 09:27 Lisinopril 20 Mg Tab PO 40 mg DAILY KEITH Administration Metoprolol Tartrate 12.5 mg 11/04/21 21:00 11/05/21 09:26 Metoprolol Tartrate 12.5 Mg Tab PO 12.5 mg BID KEITH Administration Morphine Sulfate 2 mg 11/05/21 08:07 11/05/21 09:27 Morphine Sulfate 2 Mg/Ml Syringe IVP 2 mg Q4HR PRN Administration Pain/Discomfort Multivitamins 1 each 11/05/21 09:00 11/05/21 09:26 Multivitamins, Thera 1 Each Tab PO 1 each DAILY KEITH Administration Nitroglycerin 0.4 mg 11/04/21 12:55 Nitroglycerin Sl Tabs 0.4 Mg Tab SUBLINGUAL Q5M PRN Chest Pain Intake and Output 11/04/21 11/05/21 11/05/21 22:59 06:59 14:59 Other: Voiding Method Toilet # Voids 1 1 11/04/21 10:51 11/04/21 10:51
[2021-11-05 11:28] VITALS: BP 132/71; PULSE 47; TEMP 97.5
--- NOTE | 2021-11-05 12:15 | P.DS ---
Providers Date of admission: 11/04/21 12:53 Expected date of discharge: 11/05/21 Attending physician: Nick Segundo MD Consults: 11/04/21 12:55 Consult Physician Urgent Consulting Provider: Demarcus Everett Consult Reason/Comments: chest pain Do you want consulting provider notified?: Yes Primary care physician: Ariadne Valdivia [facility] Course: Discharge Diagnosis: Atypical chest pain Coronary artery disease Hypertension Dyslipidemia Former smoker GERD Hospital Course: 56-year-old male with history of CAD status post stents in RCA and LAD, hypertension, dyslipidemia, GERD presented with acute atypical chest pain. He is a well-established patient of Dr. Everett. He had a stress test in July 2021 which was negative for stress-induced ischemia, previous cardiac catheterization in August 2018 revealed patent stents in RCA and LAD. EKG and chest x-ray were unremarkable. Troponins were negative 3, d-dimer was negative as well. Patient was evaluated by cardiology. He does not require any further interventions at the moment. Atorvastatin was increased to 80 mg at night. Chest pain likely noncardiac in origin, possibly MSK versus GI related. Patient seen and examined at bedside. Vital signs reviewed and stable. General: nontoxic, no distress, appears at stated age Derm: warm, dry Head: atraumatic, normocephalic, symmetric Eyes: EOMI, no lid lag, anicteric sclera Mouth: no lip lesion, mucus membranes moist Cardiovascular: S1S2 reg, no murmur Lungs: CTA bilateral, no rhonchi, no rales , no accessory muscle use Abdominal: soft, nontender to palpation, no guarding, no appreciable organomegaly Ext: no gross muscle atrophy, no edema, no contractures Neuro: CN II-XI grossly intact, no focal neuro deficits Psych: Alert, oriented, appropriate affect A total of 35 minutes of time were spent preparing this complex discharge summary. Patient was discharged on 11/05/21 at 11:28. Patient Condition at Discharge: Fair Plan - Discharge Summary Discharge Rx Participant: No New Discharge Prescriptions: New Atorvastatin [Lipitor] 80 mg PO HS #30 tab Continue Aspirin 81 mg PO DAILY lisinopriL 40 mg PO DAILY amLODIPine [Norvasc] 10 mg PO HS Nitroglycerin Sl Tabs [Nitrostat] 0.4 mg SUBLINGUAL Q5M PRN #30 tab PRN Reason: Chest Pain Cyanocobalamin (Vitamin B-12) [Vitamin B-12] 1,000 mcg PO DAILY Multivitamins, Thera [Multivitamin (formulary)] 1 tab PO DAILY Krill Oil 500 mg PO DAILY Isosorbide Mononitrate ER [Imdur] 60 mg PO BID@0800,1200 hydroCHLOROthiazide [Hydrodiuril] 25 mg PO HS Qunol 1 cap PO HS Metoprolol Tartrate [Lopressor] 12.5 mg PO BID Famotidine [Pepcid] 40 mg PO BID Discontinued Atorvastatin [Lipitor] 40 mg PO HS Discharge Medication List Aspirin 81 mg PO DAILY 11/17/13 [History] lisinopriL 40 mg PO DAILY 05/25/16 [History] amLODIPine [Norvasc] 10 mg PO HS 12/27/17 [History] Nitroglycerin Sl Tabs [Nitrostat] 0.4 mg SUBLINGUAL Q5M PRN #30 tab 12/28/17 [Rx] Cyanocobalamin (Vitamin B-12) [Vitamin B-12] 1,000 mcg PO DAILY 05/15/19 [History] Krill Oil 500 mg PO DAILY 05/15/19 [History] Multivitamins, Thera [Multivitamin (formulary)] 1 tab PO DAILY 05/15/19 [History] Isosorbide Mononitrate ER [Imdur] 60 mg PO BID@0800,1200 01/24/20 [History] Famotidine [Pepcid] 40 mg PO BID 11/04/21 [History] Metoprolol Tartrate [Lopressor] 12.5 mg PO BID 11/04/21 [History] Qunol 1 cap PO HS 11/04/21 [History] hydroCHLOROthiazide [Hydrodiuril] 25 mg PO HS 11/04/21 [History] Atorvastatin [Lipitor] 80 mg PO HS #30 tab 11/05/21 [Rx] Follow up Appointment(s)/Referral(s): Demarcus Everett MD [STAFF PHYSICIAN] - 1 Week Ariadne Nunn III, MD [Primary Care Provider] - 1-2 days Patient Instructions/Handouts: Noncardiac Chest Pain (GEN) Activity/Diet/Wound Care/Special Instructions: Please see Dr. Everett within 1 week to further work up the chest pain. Discharge Disposition: HOME SELF-CARE
[2021-11-05] MEDS ORDERED: ATORVASTATIN 80 MG TAB PO SCH (21:00)
== END 2021-11-05 13:01 | disposition home or self-care (01) ==
LOC: EC 06:38 → 6NMEDSUR 12:53
PROVIDERS: ADMIT Family Medicine; ATTEND Family Medicine
DX: R07.89 Other chest pain (principal); I25.10 Atherosclerotic heart disease of native coronary artery without angina pectoris; I10 Essential (primary) hypertension; I08.1 Rheumatic disorders of both mitral and tricuspid valves; K21.9 Gastro-esophageal reflux disease without esophagitis; E78.5 Hyperlipidemia, unspecified; Z79.82 Long term (current) use of aspirin; Z79.899 Other long term (current) drug therapy; Z95.5 Presence of coronary angioplasty implant and graft; Z87.891 Personal history of nicotine dependence; Z98.890 Other specified postprocedural states; Z82.49 Family history of ischemic heart disease and other diseases of the circulatory system; Z80.42 Family history of malignant neoplasm of prostate
CPT/HCPCS: 96372; 96375; 96374; 99285; 36415; 93005; 85379; 80061; 80053; 83735; 84484; 85025; 85610; 85730; 71046; G0378 ×2; J2270; J1885; J1644

== ENCOUNTER 2022-03-06 09:11 | Emergency (ER) | payer BC ==
[2022-03-06 09:48] LABS: Basophils # (A) 0.1 k/uL (0-0.2); Basophils % (A) 1 %; Eosinophils # (A) 0.1 k/uL (0-0.7); Eosinophils % (A) 1 %; HCT 40.4 % (39.0-53.0); HGB 14.2 gm/dL (13.0-17.5); Lymphocytes # (A) 1.5 k/uL (1.0-4.8); Lymphocytes % (A) 19 %; MCH 32.7 pg (25.0-35.0); MCHC 35.2 g/dL (31.0-37.0); MCV 92.7 fL (80.0-100.0); Monocytes # (A) 0.5 k/uL (0-1.0); Monocytes % (A) 7 %; Neutrophils # (A) 5.5 k/uL (1.3-7.7); Neutrophils % (A) 70 %; Platelet Count 230 k/uL (150-450); RBC 4.36 m/uL (4.30-5.90); RDW 13.3 % (11.5-15.5); WBC 7.8 k/uL (3.8-10.6)
--- NOTE | 2022-03-06 09:55 | XR ---
EXAMINATION TYPE: XR chest 2V DATE OF EXAM: 03/06/2022 9:48 AM COMPARISON: Chest radiographs from 11/04/2021 TECHNIQUE: XR chest 2V Frontal and lateral views of the chest. CLINICAL INDICATION:Male, 57 years old with history of Chest Pain; FINDINGS: Lungs/Pleura: There is no evidence of pleural effusion, focal consolidation, or pneumothorax. Pulmonary vascularity: Unremarkable. Heart/mediastinum: Cardiomediastinal silhouette is unremarkable. Musculoskeletal: No acute osseous pathology. IMPRESSION: No acute cardiopulmonary disease/process. No significant change from prior examination.
[2022-03-06 10:01] LABS: Partial Thromboplastin Time 26.6 sec (22.0-30.0); Prothrombin Time 10.3 sec (9.0-12.0)
[2022-03-06 10:11] LABS: ALT 46 U/L (4-49); AST 25 U/L (17-59); African American GFR (CKD) >90 (>60 ml/min/1.73 sqM); Albumin 4.2 g/dL (3.5-5.0); Alkaline Phosphatase 73 U/L (38-126); Anion Gap 7 mmol/L; Blood Urea Nitrogen 8 mg/dL (9-20); Calcium 8.8 mg/dL (8.4-10.2); Carbon Dioxide 29 mmol/L (22-30); Chloride 101 mmol/L (98-107); Glucose 135 mg/dL (74-99); Lipase 207 U/L (23-300); Non-African American GFR(CKD) >90 (>60 ml/min/1.73 sqM); Potassium 3.1 mmol/L (3.5-5.1); Sodium 137 mmol/L (137-145); Total Bilirubin 0.8 mg/dL (0.2-1.3); Total Protein 6.9 g/dL (6.3-8.2)
--- NOTE | 2022-03-06 10:46 | ED ---
Chest Pain HPI - General Chief Complaint: Chest Pain Stated Complaint: chest pain Time Seen by Provider: 03/06/22 09:15 Source: patient Mode of arrival: ambulatory Limitations: no limitations - History of Present Illness Initial Comments: 57-year-old male past medical history of coronary artery disease, reflux, hypertension presents emergency room reporting chest pain. States that it started 1 hour prior to hospital arrival. He was in the shower when he had sudden onset of the pain. Describes it as 6 out of 10 discomfort. Admits to squeezing pressure in the central portion of his chest. He does have nitro at home. States he took one and it only mildly helped his symptoms. He does have history of 3 stents in his heart. Last stress test was 6 months ago. Follow[address] the Dr. Everett. He has been seen multiple times in the emergency department for similar complaint. States that he "gets nervous". He denies fevers, chills or cough. No ripping or tearing sensation to his back. No numbness or tingling in his extremities. No other alleviating, Perceptin or modifying factors - Related Data Home Medications Medication Instructions Recorded Confirmed Aspirin 81 mg PO DAILY 11/17/13 11/04/21 lisinopriL 40 mg PO DAILY 05/25/16 11/04/21 amLODIPine [Norvasc] 10 mg PO HS 12/27/17 11/04/21 Cyanocobalamin (Vitamin B-12) 1,000 mcg PO DAILY 05/15/19 11/04/21 [Vitamin B-12] Krill Oil 500 mg PO DAILY 05/15/19 11/04/21 Multivitamins, Thera [Multivitamin 1 tab PO DAILY 05/15/19 11/04/21 (formulary)] Isosorbide Mononitrate ER [Imdur] 60 mg PO BID@0800,1200 01/24/20 11/04/21 Famotidine [Pepcid] 40 mg PO BID 11/04/21 11/04/21 Metoprolol Tartrate [Lopressor] 12.5 mg PO BID 11/04/21 11/04/21 Qunol 1 cap PO HS 11/04/21 11/04/21 hydroCHLOROthiazide [Hydrodiuril] 25 mg PO HS 11/04/21 11/04/21 Previous Rx's Medication Instructions Recorded Nitroglycerin Sl Tabs [Nitrostat] 0.4 mg SUBLINGUAL Q5M PRN #30 tab 12/28/17 Atorvastatin [Lipitor] 80 mg PO HS #30 tab 11/05/21 Carbamide Peroxide [Debrox Otic] 5 drops RIGHT EAR BID #15 ml 03/06/22 Allergies Allergy/AdvReac Type Severity Reaction Status Date / Time No Known Allergies Allergy Verified 03/06/22 09:14 Review of Systems ROS Statement: Those systems with pertinent positive or pertinent negative responses have been documented in the HPI. ROS Other: All systems not noted in ROS Statement are negative. EKG Findings - EKG Comments: EKG Findings:: EKG demonstrates sinus bradycardia with a rate of 56. ME interval 212. QRS 104. QTC of 429. No acute ST segment elevations or depressions Past Medical History Past Medical History: Coronary Artery Disease (CAD), GERD/Reflux, Hyperlipidemia, Hypertension History of Any Multi-Drug Resistant Organisms: None Reported Past Surgical History: Heart Catheterization With Stent Additional Past Surgical History / Comment(s): Right thumb tendon surgery, colonoscopy, stent with Dr. Everett 12/27/17 and 2 stents 12/07/17 in [facility]. Past Anesthesia/Blood Transfusion Reactions: No Reported Reaction Date of Last Stent Placement:: 12/27/17 Past Psychological History: No Psychological Hx Reported Smoking Status: Current every day smoker Past Alcohol Use History: None Reported Past Drug Use History: None Reported - Past Family History Mother Family Medical History: Hypertension Additional Family Medical History / Comment(s): Paternal grandfather of a GA at the age of 75yrs. Father Family Medical History: Cancer, Hypertension Additional Family Medical History / Comment(s): Prostate Cancer. General Exam Limitations: no limitations General appearance: alert, in no apparent distress Head exam: Present: atraumatic, normocephalic, normal inspection Eye exam: Present: normal appearance, PERRL, EOMI. Absent: scleral icterus, conjunctival injection, periorbital swelling ENT exam: Present: normal exam, mucous membranes moist Neck exam: Present: normal inspection. Absent: tenderness, meningismus, lymphadenopathy Respiratory exam: Present: normal lung sounds bilaterally. Absent: respiratory distress, wheezes, rales, rhonchi, stridor Cardiovascular Exam: Present: regular rate, normal rhythm, normal heart sounds. Absent: systolic murmur, diastolic murmur, rubs, gallop, clicks GI/Abdominal exam: Present: soft, normal bowel sounds. Absent: distended, tenderness, guarding, rebound, rigid Extremities exam: Present: normal inspection, full ROM, normal capillary refill. Absent: tenderness, pedal edema, joint swelling, calf tenderness Back exam: Present: normal inspection Neurological exam: Present: alert, oriented X3, CN II-XII intact Psychiatric exam: Present: normal affect, normal mood Skin exam: Present: warm, dry, intact, normal color. Absent: rash Course Vital Signs 03/06/22 03/06/22 09:12 11:23 Temperature 98.5 F 97.8 F Pulse Rate 66 59 L Respiratory 20 16 Rate Blood Pressure 104/65 104/69 O2 Sat by Pulse 96 97 Oximetry Chest Pain MDM - MDM Was pt. sent in by a medical professional or institution? no Did you speak to anyone other than the patient for history? Did you review nursing and triage notes? yes and I agree Were old charts reviewed? yes, previous hospitalizations Differential Diagnosis? pleurisy, PE, pleural effusion, GA, ACS, coronary vasospasm EKG interpreted by me (3pts min.)? yes X-rays interpreted by me (1pt min.)? yes CT interpreted by me (1pt min.)? no U/S interpreted by me (1pt. min.)? no What testing was considered but not performed? (CT, X-rays, U/S, labs)? Why? none What meds were considered but not given? Why? none Did you discuss the management of the patient with other professionals? no Did you reconcile home meds? no Was smoking cessation discussed for >3mins.? no Was critical care preformed (if so, how long)? no Were there social determinants of health that impacted care today? How? (Homelessness, low income, unemployed, alcoholism, drug addiction, transportation, low edu. Level, literacy, decrease access to med. care, fdc, rehab)? no Was there de-escalation of care discussed even if they declined? (Discuss DNR or withdrawal of care, Hospice)? no What co-morbidities impacted this encounter? (DM, HTN, Smoking, COPD, CAD, Cancer, CVA, Hep., AIDS, mental health diagnosis, sleep apnea, morbid obesity)? htn, CAD Was patient admitted / discharged? @Upon arrival patient was placed into room 5. Thorough history of physical exam is performed. IV access established. Laboratory studies were conducted. Chest x-rays performed. Patient remains on continuous pulse ox and cardiac monitoring after his 12-lead EKG. I reviewed the patient's laboratory studies. Potassium mildly low at 3.1. Troponin is negative. I did discuss being admitted to the hospital for serial troponins however the patient refused. States that he has been admitted to the hospital several times for his chest pain he just wants to go home. He is aware of the limitations of the current workup that was perform ed. [place] that he wants to go home. Agreeable to the risks. He is instructed to follow up with his primary care doctor and return for any new or worsening symptoms. Patient agreeable discharged home in stable condition Undiagnosed new problem with uncertain prognosis? no Drug Therapy requiring intensive monitoring for toxicity (Heparin, Nitro, Insulin, Cardizem)? no Were any procedures done? no Diagnosis/symptom? acute chest pain Acute, or Chronic, or Acute on Chronic? acute on chronic Uncomplicated (without systemic symptoms) or Complicated (systemic symptoms)? complicated Side effects of treatment? none Exacerbation, Progression, or Severe Exacerbation] no Poses a threat to life or bodily function? yes Disposition Clinical Impression: Chest pain, Cerumen impaction Disposition: HOME SELF-CARE Condition: Stable Instructions (If sedation given, give patient instructions): Chest Pain (ED) Additional Instructions: Please use the eardrops in the right ear. Follow up with your abrasive grader. Return should you have any new or worsening symptoms Prescriptions: Carbamide Peroxide [Debrox Otic] 5 drops RIGHT EAR BID #15 ml Is patient prescribed a controlled substance at d/c from ED?: No Referrals: Ariadne Nunn III, MD [Primary Care Provider] - 1-2 days Time of Disposition: 10:59
[2022-03-06 11:26] VITALS: BP 104/69; PULSE 59; RESP 16; TEMP 97.8
== END 2022-03-06 11:28 | disposition home or self-care (01) ==
LOC: EC 09:11
DX: R07.9 Chest pain, unspecified (principal); H61.21 Impacted cerumen, right ear; I25.10 Atherosclerotic heart disease of native coronary artery without angina pectoris; K21.9 Gastro-esophageal reflux disease without esophagitis; E78.5 Hyperlipidemia, unspecified; I10 Essential (primary) hypertension; F17.200 Nicotine dependence, unspecified, uncomplicated; Z79.82 Long term (current) use of aspirin; Z79.899 Other long term (current) drug therapy
CPT/HCPCS: 36415; 71046; 80053; 83690; 83735; 83880; 84484; 85025; 85610; 85730; 93005; 99285